=== PATIENT | male | born 1955 | race Caucasian/White ===

== ENCOUNTER → 2019-03-05 11:55 | Outpatient (CLI) | payer OTHER, MEDICAID, SELFPAY ==
[2019-03-05 12:57] LABS: Hematocrit 41.2 % (40-54); Hemoglobin 14.5 g/dL (13.0-16.5); Mean Corp Hgb Conc 35.2 g/dL (32-36); Mean Corpuscular Hgb 33.3 pg (27.0-32.0); Mean Corpuscular Volume 94.7 fL (80-94); Mean Platelet Vol. 8.5 fl (6.2-12.0); Platelet Count 425 K/mm3 (150-450); RBC Distribution Width CV 11.6 % (11.6-14.6); RBC Distribution Width SD 40.2 fl (35.1-43.9); Red Blood Count 4.35 M/mm3 (4.6-6.2); White Blood Count 10.8 K/mm3 (4.4-11.0)
[2019-03-05 13:38] LABS: ALB/GLOB Ratio 1.1 RATIO (0.9-2.4); AST(SGOT) 24 U/L (15-37); Alanine Aminotransfer ALT/SGPT 51 U/L (16-61); Albumin, Serum 3.8 g/dL (3.2-5.0); Alkaline Phosphatase 107 U/L (45-117); Anion Gap 8 (5-15); BUN 7 mg/dL (7-18); BUN/Creat Ratio 8.4 RATIO (10-20); Calcium,Total 9.2 mg/dL (8.5-10.1); Chloride 99 mmol/L (98-107); Cholesterol 190 mg/dL (200); Creatinine, Serum 0.83 mg/dL (0.70-1.30); EST Glomerular Filtration Rate 100 mL/min (>60); Est Glom Filt Rate - Afr Amer 121 mL/min (>60); Globulin 3.6 g/dL (2.2-4.2); Glucose 112 mg/dL (74-106); High Density Lipoprotein 43 mg/dL; PSA,Total - Annual Screen 0.76 ng/mL (0.00-4.00); Protein, Total 7.4 g/dL (6.4-8.2); Sodium Level 131 mmol/L (136-145); Triglycerides 210 mg/dL; Very Low Density Lipoprotein 42 mg/dL (5-40)
== END ==
PROVIDERS: Family Provider Nurse Practitioner Family; PCP Nurse Practitioner Family; Referring Provider Nurse Practitioner Family; Visit Provider Nurse Practitioner Family
DX: Z00.00 Encounter for general adult medical examination without abnormal findings (principal); I10 Essential (primary) hypertension; Z12.5 Encounter for screening for malignant neoplasm of prostate; Z13.220 Encounter for screening for lipoid disorders
CPT/HCPCS: 36415; 80053; 80061; 84153; 85027; G0103

== ENCOUNTER → 2019-03-27 09:39 | Outpatient (CLI) | payer OTHER, MEDICAID, SELFPAY ==
[2019-03-27 10:21] LABS: Hemoglobin A1c 6.4 % (4.2-6.3)
== END ==
PROVIDERS: Family Provider Nurse Practitioner Family; PCP Nurse Practitioner Family; Referring Provider Nurse Practitioner Family; Visit Provider Nurse Practitioner Family
DX: R73.01 Impaired fasting glucose (principal)
CPT/HCPCS: 36415; 83036

== ENCOUNTER → 2019-09-24 09:11 | Outpatient (CLI) | payer MEDICAID, SELFPAY ==
[2019-09-24 09:57] LABS: Hematocrit 40.7 % (40-54); Hemoglobin 14.4 g/dL (13.0-16.5); Mean Corp Hgb Conc 35.4 g/dL (32-36); Mean Corpuscular Hgb 32.8 pg (27.0-32.0); Mean Corpuscular Volume 92.7 fL (80-94); Mean Platelet Vol. 8.3 fl (6.2-12.0); Platelet Count 504 K/mm3 (150-450); RBC Distribution Width CV 11.8 % (11.6-14.6); RBC Distribution Width SD 40.3 fl (35.1-43.9); Red Blood Count 4.39 M/mm3 (4.6-6.2); White Blood Count 11.3 K/mm3 (4.4-11.0)
[2019-09-24 10:23] LABS: AST(SGOT) 23 U/L (15-37); Alanine Aminotransfer ALT/SGPT 43 U/L (16-61); Albumin, Serum 3.9 g/dL (3.2-5.0); Alkaline Phosphatase 75 U/L (45-117); Anion Gap 8 (5-15); BUN 8 mg/dL (7-18); BUN/Creat Ratio 8.6 RATIO (10-20); Calcium,Total 9.7 mg/dL (8.5-10.1); Chloride 95 mmol/L (98-107); Cholesterol 202 mg/dL (200); Creatinine, Serum 0.93 mg/dL (0.70-1.30); EST Glomerular Filtration Rate 87 mL/min (>60); Est Glom Filt Rate - Afr Amer 106 mL/min (>60); Globulin 3.9 g/dL (2.2-4.2); Glucose 179 mg/dL (74-106); High Density Lipoprotein 44 mg/dL; Potassium 3.9 mmol/L (3.5-5.1); Protein, Total 7.8 g/dL (6.4-8.2); Sodium Level 128 mmol/L (136-145); Triglycerides 116 mg/dL; Very Low Density Lipoprotein 23 mg/dL (5-40)
[2019-09-24 10:33] LABS: Hemoglobin A1c 5.8 % (3.8-5.6)
== END ==
PROVIDERS: PCP Nurse Practitioner Family; Referring Provider Nurse Practitioner Family; Visit Provider Nurse Practitioner Family
DX: R73.03 Prediabetes (principal); E78.5 Hyperlipidemia, unspecified; I10 Essential (primary) hypertension
CPT/HCPCS: 36415; 80053; 80061; 83036; 85027

== ENCOUNTER → 2020-03-31 08:00 | Outpatient (CLI) | payer MEDICAID, SELFPAY ==
[2020-03-31 09:01] LABS: Hematocrit 45.2 % (40-54); Hemoglobin 15.7 g/dL (13.0-16.5); Mean Corp Hgb Conc 34.7 g/dL (32-36); Mean Corpuscular Volume 92.2 fL (80-94); Mean Platelet Vol. 8.6 fl (6.2-12.0); Platelet Count 457 K/mm3 (150-450); RBC Distribution Width CV 12.2 % (11.6-14.6); RBC Distribution Width SD 41.3 fl (35.1-43.9); White Blood Count 11.3 K/mm3 (4.4-11.0)
[2020-03-31 09:35] LABS: ALB/GLOB Ratio 1.2 RATIO (0.9-2.4); AST(SGOT) 19 U/L (15-37); Alanine Aminotransfer ALT/SGPT 39 U/L (16-61); Albumin, Serum 4.1 g/dL (3.2-5.0); Alkaline Phosphatase 64 U/L (45-117); Anion Gap 8 (5-15); BUN 9 mg/dL (7-18); BUN/Creat Ratio 10.1 RATIO (10-20); Calcium,Total 9.6 mg/dL (8.5-10.1); Chloride 96 mmol/L (98-107); Cholesterol 237 mg/dL (200); Creatinine, Serum 0.89 mg/dL (0.70-1.30); EST Glomerular Filtration Rate 92 mL/min (>60); Est Glom Filt Rate - Afr Amer 111 mL/min (>60); Globulin 3.5 g/dL (2.2-4.2); Glucose 125 mg/dL (74-106); High Density Lipoprotein 37 mg/dL; PSA,Total - Annual Screen 1.18 ng/mL (0.00-4.00); Potassium 4.5 mmol/L (3.5-5.1); Protein, Total 7.6 g/dL (6.4-8.2); Sodium Level 130 mmol/L (136-145); Triglycerides 207 mg/dL; Very Low Density Lipoprotein 41 mg/dL (5-40)
[2020-03-31 10:23] LABS: Hemoglobin A1c 6.2 % (3.8-5.6)
== END ==
PROVIDERS: PCP Nurse Practitioner Family; Visit Provider Nurse Practitioner Family
DX: R73.03 Prediabetes (principal); E78.5 Hyperlipidemia, unspecified; I10 Essential (primary) hypertension; Z12.5 Encounter for screening for malignant neoplasm of prostate
CPT/HCPCS: 36415; 80053; 80061; 83036; 84153; 85027; G0103

== ENCOUNTER → 2022-04-19 | Outpatient (CLI) | payer MEDICARE, SELFPAY ==
[2022-04-19 10:16] LABS: Hematocrit 44.7 % (40-54); Hemoglobin 15.6 g/dL (13.0-16.5); Mean Corp Hgb Conc 34.9 g/dL (32-36); Mean Corpuscular Volume 91.8 fL (80-94); Mean Platelet Vol. 8.9 fl (6.2-12.0); Platelet Count 479 K/mm3 (150-450); RBC Distribution Width CV 12.5 % (11.6-14.6); Red Blood Count 4.87 M/mm3 (4.6-6.2); White Blood Count 11.7 K/mm3 (4.4-11.0)
[2022-04-19 10:44] LABS: Hemoglobin A1c 6.1 % (3.8-5.6)
[2022-04-19 10:53] LABS: ALB/GLOB Ratio 1.1 RATIO (0.9-2.4); AST(SGOT) 17 U/L (15-37); Alanine Aminotransfer ALT/SGPT 34 U/L (16-61); Alkaline Phosphatase 88 U/L (45-117); Anion Gap 7 (5-15); BUN 11 mg/dL (7-18); BUN/Creat Ratio 12.3 RATIO (10-20); Calcium,Total 9.5 mg/dL (8.5-10.1); Chloride 103 mmol/L (98-107); Cholesterol 171 mg/dL (200); EST Glomerular Filtration Rate 90 mL/min (>60); Est Glom Filt Rate - Afr Amer 109 mL/min (>60); Globulin 3.8 g/dL (2.2-4.2); Glucose 119 mg/dL (74-106); High Density Lipoprotein 44 mg/dL; Potassium 4.4 mmol/L (3.5-5.1); Protein, Total 7.8 g/dL (6.4-8.2); Sodium Level 132 mmol/L (136-145); Triglycerides 134 mg/dL; Very Low Density Lipoprotein 27 mg/dL (5-40)
== END | disposition home or self-care (01) ==
PROVIDERS: PCP Nurse Practitioner Family; Referring Provider Nurse Practitioner Family; Visit Provider Nurse Practitioner Family
DX: R73.03 Prediabetes (principal); I10 Essential (primary) hypertension; E78.5 Hyperlipidemia, unspecified
CPT/HCPCS: 36415; 80053; 80061; 83036; 85027

== ENCOUNTER 2023-10-17 18:34 | Inpatient (IN) | payer MEDICARE, MEDICAID, SELFPAY ==
[2023-10-17] VITALS (11 sets, daily range): BP systolic 97–169; BP diastolic 54–70; PULSE 60–87; RESP 13–24; TEMP 36.6–36.8; O2SAT 89–95; BMI 26.2; BMI 28.5; BMI 30.4
--- NOTE | 2023-10-17 18:37 | CT_ITS ---
We are attempting to reach an attending provider to discuss findings. An addendum with communication details will be sent when the communication is complete. INDICATION: Neuro deficit, acute, stroke suspected EXAMINATION: CT BRAIN - CT Head Stroke Protocol W/O Contrast Injection TECHNIQUE: Multiple axial images were obtained of the head without intravenous contrast. The protocol utilizes one or more of the following dose reduction techniques: automated exposure control, adjustment of mA and/or kV according to patient size,and/or use of iterative reconstruction technique. IV Contrast dosage and agent: None. RADIATION DOSAGE (If Supplied By Facility): CTDIvol = ( ) mGy, DLP = ( 863.6 ) mGycm COMPARISON: FINDINGS: BRAIN PARENCHYMA: Mild atrophy and periventricular white matter ischemic changes. There is an old infarct in the left occipital lobe and posterior medial left temporal lobe . No intracranial mass or mass effect. There is preservation of the nolasco/white matter interface. Probable old infarct in the right cerebellar hemisphere. CSF SPACES: Appropriate for age. No hydrocephalus. Basal cisterns are patent. CALVARIUM, SKULL BASE, PARANASAL SINUSES AND MASTOID AIR CELLS: Clear. No discrete lytic or blastic abnormalities. ORBITS: Both globes, extraocular muscles, optic nerves and retrobulbar fat appear unremarkable. Mild calcific plaquing of the cavernous carotids CT/STROKE Brain/Head without Cont IMPRESSION: Atrophy and periventricular white matter ischemic changes. 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 No acute bleed. If concern for acute infarct MRI recommended Electronically Signed: Jhon Lagos MD at 19:02 EDT ,
--- NOTE | 2023-10-17 18:37 | EKG12_ITS ---
Test Reason : STROKE ALERT Blood Pressure : / mmHG Vent. Rate : 068 BPM Atrial Rate : 068 BPM P-R Int : 200 ms QRS Dur : 084 ms QT Int : 382 ms P-R-T Axes : 052 -27 000 degrees QTc Int : 406 ms Normal sinus rhythm Inferior infarct , age undetermined Abnormal ECG Confirmed by GARY HALE, ELI ([id number]), medical editor MOISÉS LAUREN ([id number]) on 10/24/2023 10:33:22 A M Referred By: TI Confirmed By:AMA VEGA MD
--- NOTE | 2023-10-17 18:38 | CT_ITS ---
We are attempting to reach an attending provider to discuss findings. An addendum with communication details will be sent when the communication is complete. STUDY: CTA HEAD AND NECK WITH CONTRAST REASON FOR EXAM: Male, 67 years old. Neuro deficit, acute, stroke suspected RADIATION DOSAGE (If Supplied By Facility): CTDIvol = ( 18.38 ) mGy, DLP = ( 785.92 ) mGycm TECHNIQUE: CT angiography was performed with a multi-detector CT scanner. Data acquisition was obtained from the skull base through the vertex following intravenous administration of IV 100mL Isovue-370. MIP images were reconstructed from the axial data set. Post-processing of the angiographic images was performed, with multiplanar reformation and 3D reconstruction. Individualized dose optimization techniques were used for this CT. COMPARISON: No relevant priors. FINDINGS: Normal bilateral petrous carotid arteries. Mild calcific plaquing of the right cavernous carotid artery with a normal supraclinoid bifurcation. Mild calcific plaquing of the left cavernous carotid artery with a normal supraclinoid bifurcation. Normal right A1 segments of the anterior cerebral artery. Normal left A1 segments of the anterior cerebral artery. Normal intact anterior communicating artery (ACOM). Normal bilateral A2 segments of the anterior cerebral arteries. Normal right M1 and M2 segments of the middle cerebral arteries, with a normal M1 bifurcation. Normal left M1 and M2 segments of the middle cerebral arteries, with a normal M1 bifurcation. Hypoplastic bilateral posterior communicating arteries consistent with normal variant Normal bilateral vertebral arteries. Normal basilar artery with a normal basilar bifurcation. The visualized bilateral superior cerebellar (SCA) arteries are normal. Normal bilateral P1, P2 and visualized P3 segments of the posterior cerebral arteries. There is no demonstrated aneurysm of the solomon of [place]. AORTIC ARCH: Normal visualized aortic arch. Calcific plaquing of the origins of the brachiocephalic, left common carotid, and left subclavian arteries. RIGHT CAROTID ARTERIES: Mild multifocal calcific plaquing of the right common carotid artery (CCA). Moderate calcific plaquing of the right common carotid bulb. Mild soft and calcific plaquing of the origin of the right internal carotid (ICA) artery without a hemodynamically significant stenosis. Normal visualized cervical portion of the right internal carotid artery. Normal origin of the right external carotid artery (ECA). LEFT CAROTID ARTERIES: Normal left common carotid artery (CCA). Moderate calcific and soft plaquing of the left common carotid bulb. Moderate calcific and soft plaquing of the origin of the left internal carotid (ICA) artery without a hemodynamically significant stenosis. Normal visualized cervical portion of the left internal carotid artery. Normal origin of the left external carotid artery (ECA). VERTEBRAL ARTERIES: Normal bilateral vertebral arteries. CT/STROKE CTA Head AND Neck W/Con IMPRESSION: Moderate atherosclerotic disease of the cervical carotids without evidence for hemodynamically significant stenosis Mild atherosclerotic disease the brain without evidence for significant stenosis or major vessel occlusion Electronically Signed: Jhon Lagos MD at 19:11 EDT ,
[2023-10-17 18:58] LABS: Absolute Lymphocyte Count 3.77 X10^3/uL (0.83-4.51); Absolute Neutrophil Count 5.3 X10^3/uL (2.0-7.7); Basophil# 0.09 X10^3/uL; Basophil% 0.7 % (0-1); Eosinophil# 1.61 X10^3/uL; Eosinophils% 13.3 % (0-5); Hemoglobin 11.7 g/dL (13.0-16.5); Lymphocyte # 3.77 X10^3/ul (0.83-4.51); Lymphocyte % 31.1 % (19-41); Mean Corp Hgb Conc 36.6 g/dL (32-36); Mean Corpuscular Hgb 29.9 pg (27.0-32.0); Mean Corpuscular Volume 81.8 fL (80-94); Mean Platelet Vol. 8.3 fl (6.2-12.0); Monocyte# 1.33 X10^3/uL; NRBC Flagged by Analyzer 0 % (0-5); Neutrophil # 5.28 X10^3/uL (2.7-7.7); Neutrophil % 43.7 % (47-70); Platelet Count 351 K/mm3 (150-450); RBC Distribution Width CV 13.2 % (11.6-14.6); RBC Distribution Width SD 39.5 fl (35.1-43.9); Red Blood Count 3.91 M/mm3 (4.6-6.2); White Blood Count 12.1 K/mm3 (4.4-11.0)
[2023-10-17 19:09] LABS: International Normalized Ratio 1.1
[2023-10-17 19:11] LABS: Partial Thromboplast Time 36.4 Seconds (24.1-36.2)
[2023-10-17 19:15] LABS: Anion Gap 4 (5-15); BUN 10 mg/dL (7-18); BUN/Creat Ratio 8.1 RATIO (10-20); Calcium,Total 8.8 mg/dL (8.5-10.1); Chloride 90 mmol/L (98-107); Creatinine, Serum 1.24 mg/dL (0.70-1.30); EST Glomerular Filtration Rate 62 mL/min (>60); Est Glom Filt Rate - Afr Amer 75 mL/min (>60); Estimated Creatinine Clearance 64.17 ml/min; Glucose 167 mg/dL (74-106); Potassium 3.6 mmol/L (3.5-5.1); Sodium Level 124 mmol/L (136-145); Troponin-I HS 14 pg/mL (3.0-78.0)
--- NOTE | 2023-10-17 19:20 | RAD_ITS ---
STUDY: X-RAY CHEST REASON FOR EXAM: Male, 67 years old. Neuro deficit, acute, stroke suspected TECHNIQUE: AP portable COMPARISON: None. FINDINGS: The lungs are clear and expanded. There is no demonstrated pleural abnormality. Normal size heart. Normal mediastinum and sina. Normal visualized pulmonary arteries. Atherosclerotic changes of the aorta without evidence for aneurysm Dorsal spine demonstrates degenerative changes. Normal visualized ribs, clavicles, and shoulders. There is no demonstrated abnormality of the visualized soft tissue structures of the upper abdomen. RAD/Chest 1 View IMPRESSION: No acute cardiopulmonary pathology Electronically Signed: Jhon Lagos MD at 19:41 EDT ,
--- NOTE | 2023-10-17 19:29 | EDS_ITS ---
HPI History of Present Illness Chief Complaint: Stroke Alert Informant: patient, family and EMS Narrative Narrative: 67-year-old male presenting to the emergency room with chief complaint of prehospital stroke. Patient states that he was eating some jalapeno poppers and noticed that he was having difficulty speaking and moving his right greater than left arm and choking. Daughter states that he had been that way for about 30 minutes when she arrived and noticed that he was having difficulty expressing himself as well as slurred speech and facial droop. EMS notes systolic blood pressure of around 240. Patient states that his arms and legs are normal at this time that he is feeling better. He notes a history of diabetes. Daughter states that he quit drinking alcohol about a year ago. He is unsure if he does or does not take any blood thinners. He denies any prior history of stroke. PFSH PFS Medical History Diabetes mellitus, type 2 History of alcohol abuse Cannabis use disorder HLD (hyperlipidemia) Hypertension Tobacco use History of CVA (cerebrovascular accident) Allergy/AdvReac Type Severity Reaction Status Date / Time No Known Allergies Allergy Verified 10/17/23 19:37 Family History Mother Breast cancer Diabetes Father Heart disease Hypertension CAD (coronary artery disease) CVA (cerebral vascular accident) Myocardial infarction Surgical History History of tonsillectomy and adenoidectomy Social History (Updated 10/17/23 @ 22:04 by Francheska Sun) household members: none housing: apartment number of children: 3 service: No current occupational status: retired Smoking Status: Current every day smoker tobacco type: cigarettes Smoking packs per day: 1 Smoking cigarettes per day: 20.0 quit status: not considering quitting alcohol intake: former year quit: 2022 details: Quit 08/2022, prior 12-15 beers daily. substance use type: marijuana ROS ROS ED Constitutional Constitutional ED: Denies chills, fever(s) or weight loss Eyes Eyes: Denies change in vision or diplopia ENT ENT ED: Denies ear pain, rhinorrhea or sore throat Cardiovascular Cardiovascular: Denies chest pain, orthopnea, palpitations or racing heartbeat Respiratory/Chest Respiratory/Chest: Denies cough, dyspnea or orthopnea Gastrointestinal Gastrointestinal: Denies abdominal pain, diarrhea, nausea or vomiting Genitourinary Genitourinary ED: Denies dysuria, hematuria or urinary frequency Musculoskeletal Musculoskeletal: Denies arthralgias or myalgias Integumentary Denies abscess or rash Neurologic Neurologic: Reports other Details: Right arm weakness right facial droop slurred speech aphasia ; Denies headache(s) Psychiatric Psychiatric: Denies anxiety, depression, suicidal ideation or suicidal thoughts Endocrine Endocrinology: Denies polydipsia, polyphagia or polyuria Allergic/Immunologic Allergic/Immunologic ED: Denies mouth swelling, tongue swelling or urticaria EXAM Physical Exam Const Vital Signs: 10/17/23 18:35 10/17/23 18:37 10/17/23 18:37 Temperature 98.3 F 98.3 F Temperature Source Oral Oral Pulse Rate 84 80 Respiratory Rate 18 24 H Blood Pressure 167/64 H 167/64 H Blood Pressure Mean 98 98 Pulse Ox 93 91 Oxygen Delivery Method Room Air Room Air Room Air Oxygen Flow Rate (L/min) 10/17/23 19:01 10/17/23 19:26 10/17/23 19:32 Temperature 98.3 F 98.3 F Temperature Source Oral Oral Pulse Rate 73 84 Respiratory Rate 23 H 18 Blood Pressure 169/70 H 167/64 H Blood Pressure Mean 103 98 Pulse Ox 92 93 89 Oxygen Delivery Method Room Air Room Air Room Air Oxygen Flow Rate (L/min) 10/17/23 19:35 Temperature Temperature Source Pulse Rate 70 Respiratory Rate 21 H Blood Pressure 146/64 H Blood Pressure Mean 91 Pulse Ox 94 Oxygen Delivery Method Nasal Cannula Oxygen Flow Rate (L/min) 3 Positive well nourished and well developed General Appearance ED: well developed and NAD HEENT Reports normocephalic, head/scalp atraumatic and moist mucous membranes Eyes PERRL and EOMs intact bilaterally Neck no lymphadenopathy, supple and no JVD Resp normal respiratory effort and clear to auscultation bilaterally Cardio regular rate, regular rhythm and no murmurs GI normal to inspection, nondistended, normoactive bowel sounds and non-tender Palpation: soft Back/Spine no CVA tenderness and normal ROM Extremity normal to inspection General Extremety ED: Negative for edema General Extremity: Negative for edema Neuro oriented x3 and CN's II-XII intact bilaterally Sensorium / Orientation: alert Motor Exam: strength 5/5 throughout Psych mental status grossly normal Mood & Affect: Negative for depressed or tearful Skin no rashes or lesions noted and no wounds NIHSS NIHSS Initial: 1a Level of Consciousness: 0 1b LOC Questions (Score 2 if aphasic/stupor): 0 1c LOC Commands (Only score 1st attempt): 0 2 Best Gaze (If aphasic, use reflexive mvmts.): 0 3 Visual: 0 4 Facial Palsy: 1 5 Motor Arm Right (UN = amputation/fusion): 0 6 Motor Leg Right: 0 6 Motor Leg Left: 0 7 Limb ataxia (Only + if out of proportion): 0 8 Sensory (Aphasia/stupor=0 or 1, coma=2): 0 9 Best Language: 0 10 Dysarthria (mute, coma=2, intubated=UN): 1 11 Extinction and Inattention (only scored if +): 0 Total Score: 2 MDM MDM MDM Narrative Medical decision making narrative: Differential diagnosis includes but not limited to TIA embolic stroke hemorrhagic stroke toxidrome electrolyte disturbance hypertensive urgency/emergency Prehospital stroke team was called. He was taken from the ambulance entrance where he is examined initially by myself and then directly to the CT scanner where a CT of the brain and CTA of head and neck was obtained. [facility] stroke neurologist was being into the room for telemetry evaluation. I do not see intracranial hemorrhage. There is no LVO. [facility] recommendation is for high-dose loading of Plavix and aspirin. Basic blood work showed a nonspecific elevation of white count 12.1 hemoglobin 11.7. Sodium 124 troponin is normal my i ndependent interpretation of the chest x-ray is no acute process. I spoke with the patient and their family. Advised her recommendation is for admission. We talked about the importance of TIA and its evaluation. His blood pressure is substantially improved currently 146/64. I will speak with the hospitalist regarding admission. Nursing notes his NIH has been 0 for the past several checks. History & Record Review Discussion w/independent historian: EMS personnel, Patient and Family Lab Data Attestation: I reviewed the patient's lab results. Labs: Laboratory Results - last 24 hr 10/17/23 18:43 WBC 12.1 H RBC 3.91 L Hgb 11.7 L Hct 32.0 L MCV 81.8 MCH 29.9 MCHC 36.6 H RDW Std Deviation 39.5 RDW Coeff of Katherine 13.2 Plt Count 351 MPV 8.3 Immature Gran % (Auto) 0.200 Neut % (Auto) 43.7 L Lymph % (Auto) 31.1 [place] % (Auto) 11.0 H Eos % (Auto) 13.3 H Baso % (Auto) 0.7 Absolute Neuts (auto) 5.3 Absolute Lymphs (auto) 3.77 Nucleated RBC % 0 PT 14.0 INR 1.1 APTT 36.4 H Sodium 124 L Potassium 3.6 Chloride 90 L Carbon Dioxide 30.0 Anion Gap 4 L BUN 10 Creatinine 1.24 Estim Creat Clear Calc 64.17 Est GFR (MDRD) Af Amer 75 Est GFR (MDRD) Non-Af 62 BUN/Creatinine Ratio 8.1 L Glucose 167 H Calcium 8.8 Magnesium 1.4 L Total Bilirubin 0.60 Direct Bilirubin 0.15 AST 23 ALT 21 Alkaline Phosphatase 86 Troponin I High Sens 14 Total Protein 6.5 Albumin 3.6 Globulin 2.9 Radiography Diagnostic Testing: Clinical Impression(s) from Imaging Studies Brain CT 10/17/23 18:37 IMPRESSION: Atrophy and periventricular white matter ischemic changes. 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 No acute bleed. If concern for acute infarct MRI recommended Electronically Signed: Jhon Lagos MD at 19:02 EDT , ADDENDUM: 10/17/23 1921 IMPRESSION: Atrophy and periventricular white matter ischemic changes. 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 No acute bleed. If concern for acute infarct MRI recommended N.B. : The above Results were Read Back by Jhon Lagos MD to Tony Sainz DO, and understanding confirmed on 10/17/2023 19:14:55 (ET). Electronically Signed: Jhon Lagos MD at 19:02 EDT , Head/Neck CTA 10/17/23 18:38 IMPRESSION: Moderate atherosclerotic disease of the cervical carotids without evidence for hemodynamically significant stenosis Mild atherosclerotic disease the brain without evidence for significant stenosis or major vessel occlusion Electronically Signed: Jhon Lagos MD at 19:11 EDT , ADDENDUM: 10/17/23 1921 IMPRESSION: Moderate atherosclerotic disease of the cervical carotids without evidence for hemodynamically significant stenosis Mild atherosclerotic disease the brain without evidence for significant stenosis or major vessel occlusion N.B. : The above Results were Read Back by Jhon Lagos MD to Tony Sainz DO, and understanding confirmed on 10/17/2023 19:14:50 (ET). Electronically Signed: Jhon Lagos MD at 19:11 EDT , Chest X-Ray 10/17/23 19:20 IMPRESSION: No acute cardiopulmonary pathology Electronically Signed: Jhon Lagos MD at 19:41 EDT , EKG Initial EKG: Attestation: I personally reviewed and interpreted this EKG as follows: Comments: Normal sinus rhythm ventricular of 68 bpm Management Discussion w/another healthcare provider: Hospitalist, Commonwealth Attorney ([facility] Stroke N eurology) and Radiologist Discharge Plan Dx/Rx/DC Orders Clinical Impression: Brain TIA, Hypertension, Tobacco use, Diabetes Disposition Disposition: Acute Care Hospital [facility] Discharge Date/Time: 10/17/23 21:34
--- NOTE | 2023-10-17 19:34 | ED.RN ---
per thais Schroeder to do hourly NIHSS
[2023-10-17] MEDS: Clopidogrel Bisulfate 300 MG Tablet 600 MG PO (19:42)
[2023-10-17] MEDS: Aspirin 81 MG TAB.CHEW PO (19:42)
--- NOTE | 2023-10-17 19:54 | HP.PCM.HOS_ITS ---
HPI - General General Date of Admission: 10/17/23 Date of Service: 10/17/23 Chief Complaint: Altered speech, expressive aphasia, dysphagia, upper extremity weakness, recent increased wheezing/dyspnea. HPI Narrative The patient is a 67 y/o M w/ PMHx: Tobacco use, HTN, Diabetes mellitus type II, Chronic Hyponatremia, Former EtOH abuse who presents to the [facility] ED on 10/17/23 with history of eating dinner specifically jalapeno poppers when he and his family noticed that he was having difficulty speaking as well as moving his right more so than left upper extremity following which she started to choke and unfortunately he had been like that for approximately 30 minutes with eventual prompted EMS call and upon their arrival they also noticed he was having difficulty with expressing himself with slurred speech and reported facial droop with an initial blood pressure per EMS and with a systolic in the 240s with upon arrival patient notes that his arms and legs feel appropriate and back to his baseline prompting eventual ED evaluation. Family present and patient agree that he is completely back to his baseline. In the emergency room he eventually does seem to require oxygen supplementation and reports that he has had chronic unchanged cough and no marked sputum production but he has been significantly wheezing over the last 2 to 3 days and reports that he has been out in the heat fishing for lengthy amount of time with dyspnea sensation worse with activity but has not sought care for this. He does apparently in the past have aerosol treatments but has not been using these at home and is unclear if these have actually been refilled recently as there is no mention of them and previous medication record. Patient of note does report that his stools are normal in color and has had no black appearing stools or emesis. Workup in the ED included T98.3, heart rate 84, BP 167/64, respiratory rate 18, 93% on room air eventually desaturating in the ED with most recent vital signs T98.3, heart rate 70, BP 146/64, respiratory rate 21, 94% on 3 L nasal cannula, CBC with WBC 12.1, hemoglobin 0.7, MCV 81.8, platelet 351 with no marked shift, coags not marked appearing as hide PTT 36.4, BMP with sodium 124, chloride 90, glucose 167, troponin 14, CT of the brain with atrophy and periventricular white matter ischemic changes, old left posterior medial temporal neck septal lobe and right cerebellar infarct with no acute bleed identified, CTA head and neck with moderate atherosclerotic disease of the cervical carotids without any evidence for hemodynamically significant stenosis, mild atherosclerotic disease of the brain without any evidence for significant stenosis or major vessel occlusion, chest x-ray with no acute cardiopulmonary finding, EKG with sinus rhythm with no acute evidence of ischemia. Stroke alert was initiated on patient. Per recommendation of neurology in the ED patient was administered loading dose of Plavix 6 mg p.o. x 1 as well as aspirin 81 mg p.o. x 1. [facility] Medical History Diabetes mellitus, type 2 History of alcohol abuse Cannabis use disorder HLD (hyperlipidemia) Hypertension Tobacco use History of CVA (cerebrovascular accident) Allergy/AdvReac Type Severity Reaction Status Date / Time No Known Allergies Allergy Verified 10/17/23 19:37 Family History Mother Breast cancer Diabetes Father Heart disease Hypertension CAD (coronary artery disease) CVA (cerebral vascular accident) Myocardial infarction Surgical History History of tonsillectomy and adenoidectomy Social History household members: none Smoking Status: Current every day smoker tobacco type: cigarettes Smoking packs per day: 1 Smoking cigarettes per day: 20.0 quit status: not considering quitting alcohol intake: former year quit: 2022 details: Quit 08/2022, prior 12-15 beers daily. substance use type: marijuana ROS ROS Narrative Admission Review of Systems: CONSTITUTIONAL: No weight loss, fever, chills, + weakness or fatigue. HEENT: Eyes: No visual loss, blurred vision, double vision or yellow sclerae. Ears, Nose, Throat: No hearing loss, sneezing, congestion, runny nose or sore throat. SKIN: No rash or itching, lesions, wounds. CARDIOVASCULAR: No chest pain, chest pressure or chest discomfort, palpitations, edema, orthopnea, syncopal events. RESPIRATORY: + Recent increased dyspnea, increased wheezing, chronic cough unchanged, no marked sputum production or any hemoptysis. GASTROINTESTINAL: No anorexia, nausea, vomiting or diarrhea, abdominal pain, melena, BRBPR. GENITOURINARY: No dysuria, frequency, urgency or retention. NEUROLOGICAL: + Transient bilateral upper extremity weakness, questionable facial droop, expressive aphasia now resolved. Chronic neuropathy. No headache, dizziness, syncope, paralysis, ataxia, change in bowel or bladder control, seizure. MUSCULOSKELETAL: + muscle, back pain, joint pain or stiffness. HEMATOLOGIC: + Anemia, appears new chronicity, no easy bleeding/bruising reported per patient. LYMPHATICS: No enlarged nodes. No history of splenectomy. PSYCHIATRIC: No history of depression or anxiety. ENDOCRINOLOGIC: No reports of sweating, cold or heat intolerance. No polyuria or polydipsia. ALLERGIES: No history of asthma, hives, eczema or rhinitis. Vital Signs Vital Signs Vital Signs: 10/17/23 18:35 10/17/23 18:37 10/17/23 18:37 Temperature 98.3 F 98.3 F Temperature Source Oral Oral Pulse Rate 84 80 Respiratory Rate 18 24 H Blood Pressure 167/64 H 167/64 H Blood Pressure Mean 98 98 Pulse Ox 93 91 Oxygen Delivery Method Room Air Room Air Room Air Oxygen Flow Rate (L/min) 10/17/23 19:01 10/17/23 19:26 10/17/23 19:35 Temperature 98.3 F 98.3 F Temperature Source Oral Oral Pulse Rate 73 84 70 Respiratory Rate 23 H 18 21 H Blood Pressure 169/70 H 167/64 H 146/64 H Blood Pressure Mean 103 98 91 Pulse Ox 92 93 94 Oxygen Delivery Method Room Air Room Air Nasal Cannula Oxygen Flow Rate (L/min) 3 Weight Weight: 192 lb 14.472 oz Body Mass Index (BMI) 26.2 Physical Exam Narrative Physical Examination: General: Awake, alert, oriented x 3 and cooperative, seated upright in the ED bed, family patient note that he is back to his baseline. Skin: Normal color, normal turgor, no icterus, no cyanosis except occasional abrasion, staged ecchymoses. HEENT: AT/NC, EOMI, PERRLA, mildly dry MM, no carotid bruits or JVD noted. Lungs: Significantly diminished, greater bases, diffuse and expiratory wheezing with intermittent coughing which he notes is baseline for him during evaluation, no rales or rhonchi. Heart: Currently regular rate and rhythm; no gallop, rub audible. Abdomen: Soft, NTTP, ND, mildly hyperactive BS, no appreciated HSM. Extremities: No cyanosis, no clubbing, no marked peripheral edema present. Neurological: Patient awake, alert, oriented as noted, cognitive function intact; pupils equally reactive to light and accommodation, cranial nerves grossly normal, moving all 4 extremities, no focal deficits, strength preserved, sensation intact, no evidence of any recurrent expressive aphasia, engineering research manager strength bilateral normal/equal, equivocal Babinski, finger-nose and saiw-rm-affl appropriate. Psychiatric: Affect appears interactive, normal, no acute evidence of depressive or anxiety feelings. Results Lab / Micro Data 10/17/23 18:43 10/17/23 18:43 Labs: Laboratory Results - last 24 hr 10/17/23 18:43: WBC 12.1 H, RBC 3.91 L, Hgb 11.7 L, Hct 32.0 L, MCV 81.8, MCH 29.9, MCHC 36.6 H, RDW Std Deviation 39.5, RDW Coeff of Katherine 13.2, Plt Count 351, MPV 8.3, Immature Gran % (Auto) 0.200, Neut % (Auto) 43.7 L, Lymph % (Auto) 31.1, Miner % (Auto) 11.0 H, Eos % (Auto) 13.3 H, Baso % (Auto) 0.7, Absolute Neuts (auto) 5.3, Absolute Lymphs (auto) 3.77, Nucleated RBC % 0, PT 14.0, INR 1.1, APTT 36.4 H, Sodium 124 L, Potassium 3.6, Chloride 90 L, Carbon Dioxide 30.0, Anion Gap 4 L, BUN 10, Creatinine 1.24, Estim Creat Clear Calc 64.17, Est GFR (MDRD) Af Amer 75, Est GFR (MDRD) Non-Af 62, BUN/Creatinine Ratio 8.1 L, G lucose 167 H, Calcium 8.8, Troponin I High Sens 14 Imaging Radiology Impression Brain CT 10/17/23 18:37 IMPRESSION: Atrophy and periventricular white matter ischemic changes. 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 No acute bleed. If concern for acute infarct MRI recommended Electronically Signed: Jhon Lagos MD at 19:02 EDT , ADDENDUM: 10/17/231920 IMPRESSION: Atrophy and periventricular white matter ischemic changes. 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 No acute bleed. If concern for acute infarct MRI recommended N.B. : The above Results were Read Back by Jhon Lagos MD to Tony Sainz DO, and understanding confirmed on 10/17/2023 19:14:55 (ET). Electronically Signed: Jhon Lagos MD at 19:02 EDT , Head/Neck CTA 10/17/23 18:38 IMPRESSION: Moderate atherosclerotic disease of the cervical carotids without evidence for hemodynamically significant stenosis Mild atherosclerotic disease the brain without evidence for significant stenosis or major vessel occlusion Electronically Signed: Jhon Lagos MD at 19:11 EDT , ADDENDUM: 10/17/231920 IMPRESSION: Moderate atherosclerotic disease of the cervical carotids without evidence for hemodynamically significant stenosis Mild atherosclerotic disease the brain without evidence for significant stenosis or major vessel occlusion N.B. : The above Results were Read Back by Jhon Lagos MD to Tony Sainz DO, and understanding confirmed on 10/17/2023 19:14:50 (ET). Electronically Signed: Jhon Lagos MD at 19:11 EDT , Chest X-Ray 10/17/23 19:20 IMPRESSION: No acute cardiopulmonary pathology Electronically Signed: Jhon Lagos MD at 19:41 EDT , Assessment & Plan Assessment/Plan (1) Brain TIA: (2) COPD exacerbation: (3) Hypoxia: PLAN: Plan The patient is a 67 y/o M w/ PMHx: Tobacco use, HTN, Diabetes mellitus type II, Chronic Hyponatremia, Former EtOH abuse who presents to the [facility] ED on 10/17/23 with history of eating dinner specifically papa poppers when he and his family noticed that he was having difficulty speaking as well as moving his right more so than left upper extremity following which she started to choke and unfortunately he had been like that for approximately 30 minutes with eventual prompted EMS call and upon their arrival they also noticed he was having difficulty with expressing himself with slurred speech and reported facial droop with an initial blood pressure per EMS and with a systolic in the 240s with upon arrival patient notes that his arms and legs feel appropriate and back to his baseline prompting eventual ED evaluation. #1. Transient expressive aphasia, dysphagia, upper extremity weakness, transient possible facial droop concerning for acute TIA high risk with previous CT evidence of CVA: Will admit to PCU, will obtain MRI Brain, ECHO, PT/OT/Speech/Nutrition evaluation per protocol. Will allow permissive HTN, maintain on asa/plavix with loading doses administered in the ED of note, continue statin w/ AM FLP, fall precautions. Mag, TSH, FLP, HgbA1c requested. Maintain on fall and aspiration precautions. Continue neurology consultation. #2. Acute Hypoxic secondary to Acute on Chronic COPD exacerbation: CXR w/ chronic changes, maintain on oxygen with wean as tolerated to room air, continue ATC duonebs, PRN albuterol, IV methylprednisolone, HOB, IS parameters, will obtain sputum Cx, respiratory viral panel, procalcitonin, will hold on immediately abx therapy but low threshold to add if appropriate. #3. Acute on chronic hyponatremia with history of previous alcohol abuse: Admission sodium 124, previous baseline primarily 128-132 however the most recent lab is noted 04/19/22 sodium 132, continue judiciously hydrate, repeat CMP in the a.m. and if continues to remain low we will further evaluate. #4. Hypertension: Given presentation we will maintain on permissive hypertension, noted previously to have been on amlodipine, clonidine, losartan/hydrochlorothiazide. #5. Hyperlipidemia: Change to high dose statin, FLP in AM as noted. #6. Normocytic anemia, appears new in chronicity: Admission hemoglobin 11.7, MCV 81.8, most recent prior to this however 04/19/22 hemoglobin 15 with baseline previous to this 14-15, will obtain guaiac, iron panel, ferritin, vitamin B12 and folic acid levels and trend CBC. #7. History of previous chronic alcohol abuse: Noted to have quit and had been sober for approximately 1 year, encourage continued sobriety, case management consulted. Alcohol level requested. Maintain on MVI, folic acid, thiamine. #8. Tobacco Abuse: Encouraged cessation, inpatient consultation per RT, NR if desired. #9. Diabetes mellitus type II with chronic neuropathy: Hold oral home regimen, continue home pregabalin regimen, maintain on ADA diet, accu checks w/ ISS., Nutrition consulted per stroke protocol, hemoglobin A1c requested. #10. DVT prophylaxis: Lovenox. #11. CODE status: Patient HCPOA and LW are not in place but he notes his daughters would be his decision makers if necessary. Discussed CODE status at length including difference between FULL code, DNR-CCA and DNR-CC status. Following discussions about the differences in these status, requested DNR-CCA with allowance of intubation if necessary. Advanced Care Planning Face to Face Time: 16 minutes. Charges/Coding Visit Charges Inpatient E&M: 19671 Init Hosp L3 Procedures Hospitalists Procedures: 87341 Advncd Care Plan 30 Min
[2023-10-17 20:27] LABS: AST(SGOT) 23 U/L (15-37); Alanine Aminotransfer ALT/SGPT 21 U/L (16-61); Albumin, Serum 3.6 g/dL (3.2-5.0); Alkaline Phosphatase 86 U/L (45-117); Bilirubin, Direct 0.15 mg/dL (0.00-0.30); Globulin 2.9 g/dL (2.2-4.2); Magnesium 1.4 mg/dL (1.6-2.6); Protein, Total 6.5 g/dL (6.4-8.2)
--- NOTE | 2023-10-17 21:31 | ED.RN ---
per Dr. Sainz, okay to discontinue NIHSS
[2023-10-17 21:43] LABS: Alcohol, Blood (Medical)-Serum < 3.0 mg/dL
--- NOTE | 2023-10-17 21:48 | ECHOCS_ITS ---
Reason For Study: TIA/CVA Procedure This was a 2D Doppler, Color Flow transthoracic echocardiogram. The study was technically difficult. Exam performed portable in patient room. Left Ventricle Normal LV size. Mild concentric left ventricular hypertrophy. The left ventricular ejection fraction is 75 %. Normal diastology for age. Right Ventricle Normal right ventricle. Atria The left and right atria are normal. Bubble contrast study is negative for PFO/ASD. Mitral Valve Trivial mitral valve insufficiency. Tricuspid Valve Trivial tricuspid valve insufficiency. Right ventricular systolic pressure estimated to be 39 mmHg. Aortic Valve Mild diffuse aortic valve thickening. Mild aortic stenosis. Pulmonic Valve The pulmonic valve is not well visualized. Great Vessels Normal sized aortic root. Pericardium/Pleural No pericardial effusion. Medication Performed a rapid injection of agitated mix of 9 cc saline and 1cc air to assess for atrial septal defect. Diluted definity 1ml given slow IV push to enhance endocardial definition. MMode/2D Measurements & Calculations LVIDd: 4.5 cm IVSd: 1.1 cm LVOT diam: 2.1 cm LVIDs: 2.6 cm LVPWd: 1.2 cm RVDd: 3.9 cm FS: 41.3 % LVOT area: 3.5 cm2 Ao root diam: 3.3 cm LAV(MOD-bp): 43.9 ml LVAd ap4: 31.8 cm2 LAV(MOD-bp) Indexed: 21.5 ml/m2 LVLd ap4: 8.5 cm LAV(MOD-sp2): 42.9 ml EDV(MOD-sp4): 97.8 ml LAV(MOD-sp4): 41.3 ml EDV(sp4-el): 101.2 ml LVAs ap4: 14.3 cm2 LVLs ap4: 6.8 cm ESV(MOD-sp4): 25.8 ml ESV(sp4-el): 25.7 ml EF(MOD-sp4): 73.6 % EF(sp4-el): 74.6 % SV(MOD-sp4): 72.0 ml SV(sp4-el): 75.5 ml LA A4 area: 15.7 cm2 LA dimension(2D): 3.2 cm RA A4 area: 14.7 cm2 TAPSE: 2.7 cm Time Measurements MV dec time: 0.21 sec Doppler Measurements & Calculations MV E max al: 75.9 cm/sec Lat Peak E' Al: 11.0 cm/sec Med Peak E' Al: 10.7 cm/sec MV A max al: 107.3 cm/sec E/E' lat: 6.9 E/E' med: 7.1 MV E/A: 0.71 Ao V2 max: 251.0 cm/sec LV V1 max: 134.0 cm/sec SV(LVOT): 101.8 ml Ao max P.4 mmHg LV V1 max P.2 mmHg Ao V2 mean: 195.8 cm/sec LV V1 mean P.0 mmHg Ao mean P.9 mmHg LV V1 mean: 93.8 cm/sec Ao V2 VTI: 57.6 cm LV V1 VTI: 28.8 cm AV (velocity ratio): 0.50 QUINTEN(I,D): 1.8 cm2 QUINTEN(V,D): 1.9 cm2 PA V2 max: 123.8 cm/sec TR max al: 293.7 cm/sec PA max PG (full): 3.5 mmHg TR max P.5 mmHg ECHO/Echo Complete W/ Contrast Interpretation Summary Mild concentric left ventricular hypertrophy. The left ventricular ejection fraction is 75 %. Bubble contrast study is negative for PFO/ASD. Right ventricular systolic pressure estimated to be 39 mmHg. Mild diffuse aortic valve thickening and calcification. Mild aortic stenosis. Ordering Physician: Altagracia Wilson Referring Physician: DAVID ARITA Performed By: Poly Jean-Baptiste RDCS
[2023-10-17 22:04] LABS: Procalcitonin < 0.04 ng/mL (0.00-0.09)
[2023-10-17] MEDS: 0.9% Normal Saline (1000mL) 1,000 ML 100 ML IV (22:21)
[2023-10-17] MEDS: Atorvastatin Calcium 80 MG Tablet PO (22:33)
[2023-10-17 23:06] LABS: Bedside Glucose 125 mg/dL (74-106)
[2023-10-18] VITALS (9 sets, daily range): BP systolic 108–175; BP diastolic 61–98; PULSE 74–98; RESP 18; TEMP 36.6–36.7; O2SAT 94–97; BMI 30.4
[2023-10-18 00:57] LABS: Phosphorus 2.8 mg/dL (2.5-4.9)
[2023-10-18] MEDS: Magnesium Sulfate 4gm/100mL 4 GM/100 ML IV.SOLN. IV (01:07)
[2023-10-18 06:29] LABS: Absolute Lymphocyte Count 0.77 X10^3/uL (0.83-4.51); Absolute Neutrophil Count 13.8 X10^3/uL (2.0-7.7); Basophil# 0.03 X10^3/uL; Basophil% 0.2 % (0-1); Hematocrit 39.2 % (40-54); Lymphocyte # 0.77 X10^3/ul (0.83-4.51); Lymphocyte % 5.2 % (19-41); Mean Corp Hgb Conc 35.7 g/dL (32-36); Mean Corpuscular Hgb 29.8 pg (27.0-32.0); Mean Corpuscular Volume 83.4 fL (80-94); Mean Platelet Vol. 8.4 fl (6.2-12.0); Monocyte# 0.12 X10^3/uL; Monocyte% 0.8 % (0-10); NRBC Flagged by Analyzer 0 % (0-5); Neutrophil # 13.75 X10^3/uL (2.7-7.7); Neutrophil % 93.2 % (47-70); Platelet Count 435 K/mm3 (150-450); RBC Distribution Width SD 39.3 fl (35.1-43.9); White Blood Count 14.8 K/mm3 (4.4-11.0)
[2023-10-18] MEDS: Ipratropium/Albuterol Sulfate 3 ML AMPUL.NEB INHALATION ×2 (06:56→14:30)
[2023-10-18 06:59] LABS: Bedside Glucose 201 mg/dL (74-106)
[2023-10-18 07:09] LABS: ALB/GLOB Ratio 1.1 RATIO (0.9-2.4); AST(SGOT) 28 U/L (15-37); Alanine Aminotransfer ALT/SGPT 23 U/L (16-61); Albumin, Serum 4.1 g/dL (3.2-5.0); Alkaline Phosphatase 115 U/L (45-117); Anion Gap 9 (5-15); BUN 12 mg/dL (7-18); BUN/Creat Ratio 12.3 RATIO (10-20); Calcium,Total 9.7 mg/dL (8.5-10.1); Chloride 98 mmol/L (98-107); Cholesterol 166 mg/dL (200); Creatinine, Serum 0.97 mg/dL (0.70-1.30); EST Glomerular Filtration Rate 82 mL/min (>60); Est Glom Filt Rate - Afr Amer 99 mL/min (>60); Ferritin 218 ng/mL (26-388); Globulin 3.6 g/dL (2.2-4.2); Glucose 205 mg/dL (74-106); High Density Lipoprotein 37 mg/dL; Iron 39 ug/dL (65-175); Iron Binding Capacity,Total 314 ug/dL (250-450); Magnesium 2.4 mg/dL (1.6-2.6); PERCENT IRON SATURATION 12.4 % (15.0-55.0); Potassium 3.8 mmol/L (3.5-5.1); Protein, Total 7.7 g/dL (6.4-8.2); Sodium Level 129 mmol/L (136-145); Thyroid Stim Hormone (TSH) 0.93 uIU/mL (0.358-3.74); Triglycerides 64 mg/dL; Very Low Density Lipoprotein 13 mg/dL (5-40)
[2023-10-18 08:56] LABS: Vitamin B12 222 pg/mL (211-911)
--- NOTE | 2023-10-18 09:00 | MRI_ITS ---
We are attempting to reach an attending provider to discuss findings. An addendum with communication details will be sent when the communication is complete. STUDY: MRI BRAIN WITHOUT CONTRAST REASON FOR EXAM: Male, 67 years old. TIA, slurred speech, aphasia, dyphasia, upper extremity weakness TECHNIQUE: Standardized multiplanar fat and water weighted pulse sequences were obtained. COMPARISON: CT 10/17/2023 FINDINGS: There is moderate cerebral atrophy with widening of the extra-axial spaces and ventricular dilatation. There are multiple white matter hyperintensities, distributed throughout the deep white matter tracts of the cerebral hemispheres, consistent with moderate chronic white matter ischemic changes. Focal encephalomalacia and gliosis left occipital lobe consistent with a prior infarct. Focal hyperintensities of the cortex of the left parietal lobe demonstrate restricted diffusion consistent with acute/subacute infarcts possibly embolic. Normal T2* images of the brain without demonstrated susceptibility artifact. There is no demonstrated hemosiderin stain. Normal bilateral basal ganglia. Normal thalami. There is no extra-axial fluid accumulation. Normal flow voids within the major intracranial circulation suggesting patency by spin echo criteria. Normal sella turcica, pituitary gland, infundibular stalk, optic chiasm and hypothalamus. Normal tectal plate and pineal gland. Normal midbrain, victoria and medulla. Encephalomalacia ankylosis in the right hemisphere of the cerebellum consistent with a prior infarct. Normal basal cisterns. Normal bilateral temporal bones. Normal bilateral internal auditory canals. There are bilateral ocular lens implants with otherwise normal intraorbital contents. Normal visualized paranasal sinuses. Normal calvarium and skull base. Normal visualized soft tissue structures. Normal visualized upper cervical spine. MRI/Brain without Contrast IMPRESSION: Involutional changes of the brain, as described above. Acute/subacute focal infarcts of the nolasco matter of the left parietal lobe, possibly embolic. Electronically Signed: Aydin Blankenship MD at 13:18 EDT ,
[2023-10-18 09:03] LABS: Hemoglobin A1c 6.4 % (3.8-5.6)
[2023-10-18] MEDS: Multivitamins,Ther W-Minerals Tablet 1 TABLET PO (09:10)
[2023-10-18] MEDS: Aspirin 81 MG TAB.CHEW PO (09:10)
[2023-10-18] MEDS: Thiamine Hydrochloride 100 MG Tablet PO (09:10)
[2023-10-18] MEDS: Folic Acid 1 MG Tablet PO (09:10)
[2023-10-18] MEDS: Clopidogrel Bisulfate 75 MG Tablet PO (09:10)
[2023-10-18] MEDS: 0.9% Normal Saline (1000mL) 1,000 ML 100 ML IV (09:11)
--- NOTE | 2023-10-18 10:53 | PN.HOSP_ITS ---
Reason for Visit Reason for Visit: Diagnoses Transient cerebral ischemic attack, unspecified (10/17/23) Chronic obstructive pulmonary disease with (acute) exacerbation (10/17/23) Hypoxemia (10/17/23) Subjective Subjective Saw patient at bedside this morning. Patient was sitting up comfortably in bed, conversing normally, in no acute distress. He was breathing comfortably on 3 L nasal cannula at rest. Patient had just returned from having his brain MRI done. He also had his echo done earlier this morning. He currently denied any neurologic symptoms. Notably came in with transient expressive aphasia, upper extremity weakness and transient possible facial droop. The aphasia and facial droop were fully resolved and he did not appear to have any upper extremity weakness on my exam. Patient stated that the steroids and breathing treatments for the COPD exacerbation were mild to moderately helpful for him. No other new concerns at this time. Objective Data Objective Data Vital Signs: Vital Signs Temp Pulse Resp BP Pulse Ox O2 Del Method O2 Flow Rate 98 F 94 18 108/92 H 97 Nasal Cannula 3 10/18/23 09:03 10/18/23 09:03 10/18/23 09:03 10/18/23 09:03 10/18/23 09:03 10/18/23 09:03 10/18/23 09:03 Oxygen Flow Rate (L/min) 3 Oxygen Delivery Method Nasal Cannula Weight: 88.2 kg Body Mass Index (BMI) 30.4 Intake & Output: Intake and Output for Last 24 Hours 10/16/23 10/17/23 10/18/23 23:59 23:59 23:59 Intake Total 1100 / 1100 Balance 1100 / 1100 Lab / Micro Data 10/18/23 06:10 10/18/23 06:10 Labs: Laboratory Results - last 24 hr 10/17/23 18:16: Phosphorus 2.8 10/17/23 18:43: WBC 12.1 H, RBC 3.91 L, Hgb 11.7 L, Hct 32.0 L, MCV 81.8, MCH 29.9, MCHC 36.6 H, RDW Std Deviation 39.5, RDW Coeff of Katherine 13.2, Plt Count 351, MPV 8.3, Immature Gran % (Auto) 0.200, Neut % (Auto) 43.7 L, Lymph % (Auto) 31.1, Faulkner % (Auto) 11.0 H, Eos % (Auto) 13.3 H, Baso % (Auto) 0.7, Absolute Neuts (auto) 5.3, Absolute Lymphs (auto) 3.77, Nucleated RBC % 0, PT 14.0, INR 1.1, APTT 36.4 H, Sodium 124 L, Potassium 3.6, Chloride 90 L, Carbon Dioxide 30.0, Anion Gap 4 L, BUN 10, Creatinine 1.24, Estim Creat Clear Calc 64.17, Est GFR (MDRD) Af Amer 75, Est GFR (MDRD) Non-Af 62, BUN/Creatinine Ratio 8.1 L, G lucose 167 H, Calcium 8.8, Magnesium 1.4 L, Total Bilirubin 0.60, Direct Bilirubin 0.15, AST 23, ALT 21, Alkaline Phosphatase 86, Troponin I High Sens 14, Total Protein 6.5, Albumin 3.6, Globulin 2.9 10/17/23 21:07: Procalcitonin < 0.04, Ethyl Alcohol < 3.0 10/17/23 22:31: POC Glucose 125 H 10/18/23 06:10: WBC 14.8 H, RBC 4.70, Hgb 14.0, Hct 39.2 L, MCV 83.4, MCH 29.8, MCHC 35.7, RDW Std Deviation 39.3, RDW Coeff of Katherine 13.0, Plt Count 435, MPV 8.4, Immature Gran % (Auto) 0.600, Neut % (Auto) 93.2 H, Lymph % (Auto) 5.2 L, Faulkner % (Auto) 0.8, Eos % (Auto) 0.0, Baso % (Auto) 0.2, Absolute Neuts (auto) 13.8 H, Absolute Lymphs (auto) 0.77 L, Nucleated RBC % 0, Sodium 129 L, Potassium 3.8, Chloride 98, Carbon Dioxide 22.0, Anion Gap 9, BUN 12, Creatinine 0.97, Estim Creat Clear Calc 79.40, Est GFR (MDRD) Af Amer 99, Est GFR (MDRD) Non-Af 82, BUN/Creatinine Ratio 12.3, Glucose 205 H, Hemoglobin A1c 6.4 H, Calcium 9.7, Magnesium 2.4, Iron 39 L, TIBC 314, Iron Saturation 12.4 L, Ferritin 218, Total Bilirubin 0.60, AST 28, ALT 23, Alkaline Phosphatase 115, Total Protein 7.7, Albumin 4.1, Globulin 3.6, Albumin/Globulin Ratio 1.1, Triglycerides 64, Cholesterol 166, LDL Cholesterol 116, VLDL Cholesterol 13, HDL Cholesterol 37 L, Vitamin B12 222, Folate 12.30, TSH 0.93 10/18/23 06:22: POC Glucose 201 H Micro: Microbiology 10/18/23 01:00 Mucosa - Nasopharyngeal Respiratory Panel (PCR) - Final Radiography Diagnostic Testing: Radiology Impression Brain CT 10/17/23 18:37 IMPRESSION: Atrophy and periventricular white matter ischemic changes. 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 No acute bleed. If concern for acute infarct MRI recommended Electronically Signed: Jhon Lagos MD at 19:02 EDT Reading Location ID and State: [facility] / [place] Tel [phone], Service support , ADDENDUM: 10/17/231920 IMPRESSION: Atrophy and periventricular white matter ischemic changes. 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 No acute bleed. If concern for acute infarct MRI recommended N.B. : The above Results were Read Back by Jhon Lagos MD to Tony Sainz DO, and understanding confirmed on 10/17/2023 19:14:55 (ET). Electronically Signed: Jhon Lagos MD at 19:02 EDT Reading Location ID and State: [facility] / [place] Tel [phone], Service support , Head/Neck CTA 10/17/23 18:38 IMPRESSION: Moderate atherosclerotic disease of the cervical carotids without evidence for hemodynamically significant stenosis Mild atherosclerotic disease the brain without evidence for significant stenosis or major vessel occlusion Electronically Signed: Jhon Lagos MD at 19:11 EDT , ADDENDUM: 10/17/231920 IMPRESSION: Moderate atherosclerotic disease of the cervical carotids without evidence for hemodynamically significant stenosis Mild atherosclerotic disease the brain without evidence for significant stenosis or major vessel occlusion N.B. : The above Results were Read Back by Jhon Lagos MD to Tony Sainz DO, and understanding confirmed on 10/17/2023 19:14:50 (ET). Electronically Signed: Jhon Lagos MD at 19:11 EDT , Chest X-Ray 10/17/23 19:20 IMPRESSION: No acute cardiopulmonary pathology Electronically Signed: Jhon Lagos MD at 19:41 EDT , Physical Exam Const alert, oriented x3 and no apparent distress Constitutional Narrative: Elderly male, obese, sitting up comfortably in bed, conversing normally, in no acute distress. General Appearance: cooperative and comfortable HEENT normocephalic, head/scalp atraumatic, hearing grossly normal bilaterally, nasal mucous membranes and turbinates normal and moist oral mucous membranes Eyes PERRL, EOMs intact bilaterally and conjunctivae normal Neck full ROM Chest inspection of chest normal Resp normal respiratory effort and no use of accessory muscles Resp Narrative: Breathing comfortably on 3 L nasal cannula at rest. Mildly decreased breath sounds bilaterally throughout but no wheezing or crackles noted. Cardio regular rate, regular rhythm, no murmurs and peripheral pulses 2+ throughout GI normal to inspection, nondistended, normoactive bowel sounds, soft to palpation, non-tender and non-distended Back/Spine normal ROM Extremity normal to inspection, full ROM and no pedal edema Skin no rashes or lesions noted Neuro moves all extremities and no focal motor deficits Speech: speech normal Psych mental status grossly normal Assessment & Plan Assessment/Plan (1) Acute ischemic left MCA stroke: (2) COPD exacerbation: (3) Hypoxia: PLAN: Plan Patient is a 67-year-old male who presented [facility] ED on 10/17/2023 with strokelike symptoms and shortness of breath. 1. Acute left MCA stroke ? Neurology following. Presented with transient aphasia, upper extremity weakness, dysphagia and concern for facial droop. ED workup negative for acute stroke, TNK not given. CT brain nonacute. CTA head/neck with moderate atherosclerotic carotid disease without significant stenosis. However, MRI brain without contrast showed acute/subacute focal infarcts of the left parietal lobe, possibly embolic. Echo showed EF 75%, mild concentric LV hypertrophy, normal left and right atria, negative bubble study, no significant valvular disease. Lipid panel with total cholesterol 166, LDL 116, HDL 37, triglycerides 64. A1c 6.4%. TSH normal. Per neurology, continue aspirin 81 mg daily and atorvastatin 80 mg daily going forward. Continue Plavix 75 mg daily for 21 days. Will prescribe a 30-day cardiac event monitor on discharge. Okay for discharge from neurology standpoint. 2. COPD exacerbation with acute hypoxia ? Presented with shortness of breath with known history of COPD. Chest x-ray on admit nonacute. Respiratory PCR panel negative. Patient with dry cough, not able to produce sputum sample. Treating for presumed COPD exacerbation with IV steroids, IV antibiotics and scheduled DuoNebs. Patient not on home oxygen, has been requiring 2 to 3 L nasal cannula since admission. Will plan for O2 ambulatory test tomorrow and likely de-escalation to p.o. steroids and antibiotics in preparation for discharge home tomorrow. 3. Acute on chronic hyponatremia, improved ? Sodium 124 on admit, baseline appears to be around 128-131. Improved to 129 by hospital day 2. No need to monitor further sodium levels. 4. Hypertension ? Not on any home medication. Permissive hypertension was allowed on admission, but patient now continues to be hypertensive and suspect this is due to underlying essential hypertension. Will start amlodipine 5 mg daily today and monitor. Chronic medical conditions: ? Obesity: BMI 30 on admit. Encouraged lifestyle modifications. Complicates hospital course, care and prognosis. ? Type 2 diabetes mellitus: A1c 6.4% on admit. Not on any home medications. Continue sliding scale insulin with meals while inpatient. ? Hyperlipidemia: Lipid panel as noted above. Continue atorvastatin 80 mg daily. ? Tobacco abuse: Current smoker. Nicotine patch provided per patient request. Encouraged cessation. ? History of alcohol abuse: Per history, not an active drinker. Encouraged continued cessation. DVT prophylaxis: Lovenox CODE STATUS: DNR CCA, okay to intubate Expected disposition: Home, 1 to 2 days Total clinical time spent by myself addressing the patient's medical issues, reviewing all the data, and collaborating with patient's care team: 35 minutes. Charges/Coding Visit Charges Inpatient E&M: 26334 Subs Hosp L2
[2023-10-18] MEDS: Insulin Lispro 100 UNIT/ML INSULN.PEN SC (11:59)
[2023-10-18 12:01] LABS: Bedside Glucose 236 mg/dL (74-106)
--- NOTE | 2023-10-18 12:01 | CASEMGMT ---
Addendum entered by Shereen Watson 10/18/23 12:24: Discussed CCN and Pt Link w/pt and daughter. Pt declines both. Original Note: RN?CM?TAX MANAGER?CM?to room to meet with patient for initial transition planning/care coordination?assessment.?RN?CM?introduced self and role at [facility].? Pt voices understanding and consents to?assessment?at this time.? Pt sitting up in chair in room in no distress at this time.? Daughter, Ysabel, @ bedside. Pt is A/O at this time and answers all questions appropriately.?? Care providers, pharmacy, and demographics verified/updated at this time. PCP: Cecilia العلي NP Specialists: none Preferred [facility]acy: [facility] Insurance: Jamshid BARAHONA Prescription Benefit:?yes Living Will/HPOA:?Pt does not currently have LW/HCPOA. LNOK: 3 adult children. Daughters, Ysabel and Tamir. Living Arrangements: Lives alone in apartment w/8 steps to enter. Independent and manages his own medications. Daughter, Tamir, is a nurse and takes pt to his appts. Transportation:?Pt does not drive. Daughters provide transportation. DME: ?States has the following DME:?nebulizer and nebulizer. Pt states he has not used the nebulizer for about a year, but states as far a he knows it is working properly and he has plenty of suplies for it. HHC/SNF: No hx of either. Pt wishes to return home and states has no concerns with going home at time of discharge.??CM?to follow for any further discharge planning/needs.? Pt and daughter voice no concerns/needs at this time.? PLAN:??Home w/family support and discharge plans in place. Parminder ROUSEN?RN?CM
--- NOTE | 2023-10-18 12:07 | CASEMGMT ---
SW completed a PHQ 9 as patient may have had a TIA. Patient scored a 0. Patient denies any depression or need for resources. Agatha SALMON
--- NOTE | 2023-10-18 13:56 | STROKE.CONS ---
Assessment and Plan: Stroke Assessment/Plan KIM SUN is a 67 M with a history of HTN, smoking, HLD and DM2 who presents for evaluation of TIA. Was seen on tele for aphasia and choking on food. Sx were improving, speech cleared, did not get TNK. Neurological examination shows NIH 0. Neuroimaging shows Acute L MCA infarct. - Anti-platelet medication: Aspirin 81 mg daily AND Plavix x 21 days. Then ASA only after - Occupational/ Physical therapy consults - NPO until swallow evaluation. IVF until able to take po - DVT prophylaxis with SCDs and heparin SQ - Vascular risk factor modification. The following are the recommended guidelines: LDL Goal < 70. Increase Statin to 80mg Smoking Cessation - counseled. Said he would try. Diabetes Management - A1C pending. If elevated, send to endocrine outpatient. intermediate blood pressure control should achieve <130/80 mmHg. BP management should aim to achieve fdc Control in a reasonable amount of time, taking into consideration the individual patient's requirements and characteristics. Weight Management: Goal for BMI is 18.5 -24.9 kg/m2. Proper diet and exercise. Alcohol: No more than 2 drinks/day for men - states he quit ETOH 1 year ago. - Promote lifestyle modification: weight control, physical activity, moderation of alcohol intake, moderate sodium intake. Followup with PCP in 1-2 weeks, and in Neurology clinic in 12 weeks HPI Consult Data Date of Consult: 10/18/23 HPI Narrative HPI Narrative: KIM SUN, is a 67 M who presents [facility] Medical History Diabetes mellitus, type 2 History of alcohol abuse Cannabis use disorder HLD (hyperlipidemia) Hypertension Tobacco use History of CVA (cerebrovascular accident) Allergy/AdvReac Type Severity Reaction Status Date / Time No Known Allergies Allergy Verified 10/17/23 19:37 Family History Mother Breast cancer Diabetes Father Heart disease Hypertension CAD (coronary artery disease) CVA (cerebral vascular accident) Myocardial infarction Surgical History History of tonsillectomy and adenoidectomy Social History (Updated 10/17/23 @ 22:04 by Francheska Sun) household members: none housing: apartment number of children: 3 service: No current occupational status: retired Smoking Status: Current every day smoker tobacco type: cigarettes Smoking packs per day: 1 Smoking cigarettes per day: 20.0 quit status: not considering quitting alcohol intake: former year quit: 2022 details: Quit 08/2022, prior 12-15 beers daily. substance use type: marijuana Vital Signs Vital Signs Vital Signs: 10/17/23 18:35 10/17/23 18:37 10/17/23 18:37 Temperature 98.3 F 98.3 F Temperature Source Oral Oral Pulse Rate 84 80 Pulse Strength Respiratory Rate 18 24 H Respiratory Effort Respiratory Depth Respiratory Pattern Blood Pressure 167/64 H 167/64 H Blood Pressure Mean 98 98 Blood Pressure Source Blood Pressure Position Blood Pressure Location Pulse Ox 93 91 Pulse Ox [AMBULATING on Room Air] Pulse Ox [At REST on Room Air] Oxygen Delivery Method Room Air Room Air Room Air Oxygen Flow Rate (L/min) Oxygen Flow Rate (L/min) [AMBULATING on Room Air] Oxygen Flow Rate (L/min) [At REST on Room Air] 10/17/23 19:01 10/17/23 19:26 10/17/23 19:32 Temperature 98.3 F 98.3 F Temperature Source Oral Oral Pulse Rate 73 84 Pulse Strength Respiratory Rate 23 H 18 Respiratory Effort Respiratory Depth Respiratory Pattern Blood Pressure 169/70 H 167/64 H Blood Pressure Mean 103 98 Blood Pressure Source Blood Pressure Position Blood Pressure Location Pulse Ox 92 93 89 Pulse Ox [AMBULATING on Room Air] Pulse Ox [At REST on Room Air] Oxygen Delivery Method Room Air Room Air Room Air Oxygen Flow Rate (L/min) Oxygen Flow Rate (L/min) [AMBULATING on Room Air] Oxygen Flow Rate (L/min) [At REST on Room Air] 10/17/23 19:35 10/17/23 20:35 10/17/23 21:00 Temperature Temperature Source Pulse Rate 70 87 63 Pulse Strength Respiratory Rate 21 H 16 18 Respiratory Effort Respiratory Depth Respiratory Pattern Blood Pressure 146/64 H 149/54 H 149/54 H Blood Pressure Mean 91 85 85 Blood Pressure Source Blood Pressure Position Blood Pressure Location Pulse Ox 94 95 94 Pulse Ox [AMBULATING on Room Air] Pulse Ox [At REST on Room Air] Oxygen Delivery Method Nasal Cannula Nasal Cannula Nasal Cannula Oxygen Flow Rate (L/min) 3 3 2 Oxygen Flow Rate (L/min) [AMBULATING on Room Air] Oxygen Flow Rate (L/min) [At REST on Room Air] 10/17/23 21:12 10/17/23 21:51 10/17/23 22:15 Temperature 98.2 F 97.9 F Temperature Source Oral Pulse Rate 60 60 Pulse Strength Respiratory Rate 13 16 Respiratory Effort Respiratory Depth Respiratory Pattern Blood Pressure 149/54 H 97/67 Blood Pressure Mean 85 77 Blood Pressure Source Monitor Blood Pressure Position Supine Blood Pressure Location Right Arm Pulse Ox 95 93 95 Pulse Ox [AMBULATING on Room Air] Pulse Ox [At REST on Room Air] Oxygen Delivery Method Nasal Cannula Nasal Cannula Oxygen Flow Rate (L/min) 2 3 Oxygen Flow Rate (L/min) [AMBULATING on Room Air] Oxygen Flow Rate (L/min) [At REST on Room Air] 10/17/23 22:23 10/18/23 01:10 10/18/23 01:10 Temperature 97.9 F Temperature Source Oral Pulse Rate 74 Pulse Strength Respiratory Rate 18 Respiratory Effort Normal Non-Labored Normal Non-Labored Respiratory Depth Normal Normal Respiratory Pattern Normal Normal Blood Pressure 152/61 H Blood Pressure Mean 91 Blood Pressure Source Monitor Blood Pressure Position Supine Blood Pressure Location Left Arm Pulse Ox 95 Pulse Ox [AMBULATING on Room Air] Pulse Ox [At REST on Room Air] Oxygen Delivery Method Nasal Cannula Nasal Cannula Nasal Cannula Oxygen Flow Rate (L/min) 2 3 3 Oxygen Flow Rate (L/min) [AMBULATING on Room Air] Oxygen Flow Rate (L/min) [At REST on Room Air] 10/18/23 05:05 10/18/23 08:01 10/18/23 09:03 Temperature 97.9 F 98 F Temperature Source Oral Oral Pulse Rate 98 94 Pulse Strength Respiratory Rate 18 18 Respiratory Effort Normal Non-Labored Respiratory Depth Normal Respiratory Pattern Normal Blood Pressure 175/98 H 108/92 H Blood Pressure Mean 123 97 Blood Pressure Source Monitor Monitor Blood Pressure Position Semi-Fowlers Semi-Fowlers Blood Pressure Location Left Arm Left Arm Pulse Ox 94 97 Pulse Ox [AMBULATING on Room Air] Pulse Ox [At REST on Room Air] Oxygen Delivery Method Room Air Nasal Cannula Nasal Cannula Oxygen Flow Rate (L/min) 3 3 Oxygen Flow Rate (L/min) [AMBULATING on Room Air] Oxygen Flow Rate (L/min) [At REST on Room Air] 10/18/23 09:20 10/18/23 11:52 10/18/23 12:53 Temperature Temperature Source Pulse Rate Pulse Strength Normal (2+) Respiratory Rate Respiratory Effort Respiratory Depth Respiratory Pattern Blood Pressure Blood Pressure Mean Blood Pressure Source Blood Pressure Position Blood Pressure Location Pulse Ox 97 Pulse Ox [AMBULATING on Room Air] 94 Pulse Ox [At REST on Room Air] 95 Oxygen Delivery Method Oxygen Flow Rate (L/min) 3 Oxygen Flow Rate (L/min) [AMBULATING on Room Air] 0 Oxygen Flow Rate (L/min) [At REST on Room Air] 0 10/18/23 13:00 10/18/23 13:03 Temperature 98.1 F Temperature Source Oral Pulse Rate 87 Pulse Strength Respiratory Rate 18 Respiratory Effort Respiratory Depth Respiratory Pattern Blood Pressure 155/67 H Blood Pressure Mean 96 Blood Pressure Source Monitor Blood Pressure Position Sitting Blood Pressure Location Right Arm Pulse Ox 97 97 Pulse Ox [AMBULATING on Room Air] Pulse Ox [At REST on Room Air] Oxygen Delivery Method Room Air Oxygen Flow Rate (L/min) 3 Oxygen Flow Rate (L/min) [AMBULATING on Room Air] Oxygen Flow Rate (L/min) [At REST on Room Air] Weight Weight: 88.2 kg Body Mass Index (BMI) 30.4 EEG Results Procedure Details EEG Procedure Details: KIM SUN is a 67 year old M with a past medical history of , who presents for evaluation of Electroencephalogram on DATE at TIME NIHSS NIHSS Nursing Documentation NIHSS Nursing Documentation: NIHSS: Ischemic Stroke/TIA Start: 10/17/23 21:48 Text: For PCU Patients: NIH and Neuro Check every 4 Status: Active hours, PRN and with change in RN caregiver. Freq: [id number] Protocol: Activity Type Activity Date Activity User E-sign Co-sign Detail Recorded Client Recorded Date Recorded By Document 10/18/23 13:00 MD desktop 10/18/23 13:25 10/18/23 13:00 NIH Stroke Scale [NIHSS] A score of 0 is normal or asymptomatic . Total possible score is 42. Inpatient: RN or Physician to activate a stroke alert for onset of new stroke symptoms or with NIHSS increase >/= 3 points. Following change in neurological status, NIHSS will be performed per physician order or more frequently PRN. -1a. Level of Consciousness Alert; keenly responsive -1b. LOC Questions Answers BOTH questions correctly. -1c. LOC Commands Performs both tasks correctly . -2. Best Gaze Normal -3. Visual No visual loss -4. Facial Palsy Normal symmetrical movements -5a. Left Arm No drift; arm holds 90 (or 45 ) degrees for full 10 seconds -5b. Right Arm No drift; arm holds 90 (or 45 ) degrees for full 10 seconds -6a. Left Leg No drift; leg holds 30-degree position for full 5 seconds -6b. Right Leg No drift; leg holds 30-degree position for full 5 seconds -7. Limb Ataxia Absent -8. Sensory Normal; no sensory loss -9. Best Language No aphasia; normal -10. Dysarthria Normal -11. Extinction and Inattention No abnormality -Total 0 Query Text:A score of 0 is normal or asymptomatic. Total possible score is 42 . ED: Notify Physician for NIHSS increase by > / = 3 points. Inpatient: RN or Physician to activate a stroke alert for NIHSS increase of > / = 3 points. Coma Scale [Assess] -Eye Opening Spontaneous -Motor Obeys Commands -Verbal Oriented [Total] -Coma Scale Total 15 Physical Exam Neuro Sensorium / Orientation: awake, alert, oriented to person and oriented to place Speech: speech normal Gait (Neuro): normal gait Lab / Micro Data 10/18/23 06:10 10/18/23 06:10 Labs: Laboratory Results - last 24 hr 10/17/23 18:16: Phosphorus 2.8 10/17/23 18:43: WBC 12.1 H, RBC 3.91 L, Hgb 11.7 L, Hct 32.0 L, MCV 81.8, MCH 29.9, MCHC 36.6 H, RDW Std Deviation 39.5, RDW Coeff of Katherine 13.2, Plt Count 351, MPV 8.3, Immature Gran % (Auto) 0.200, Neut % (Auto) 43.7 L, Lymph % (Auto) 31.1, Craven % (Auto) 11.0 H, Eos % (Auto) 13.3 H, Baso % (Auto) 0.7, Absolute Neuts (auto) 5.3, Absolute Lymphs (auto) 3.77, Nucleated RBC % 0, PT 14.0, INR 1.1, APTT 36.4 H, Sodium 124 L, Potassium 3.6, Chloride 90 L, Carbon Dioxide 30.0, Anion Gap 4 L, BUN 10, Creatinine 1.24, Estim Creat Clear Calc 64.17, Est GFR (MDRD) Af Amer 75, Est GFR (MDRD) Non-Af 62, BUN/Creatinine Ratio 8.1 L, Glucose 167 H, Calcium 8.8, Magnesium 1.4 L, Total Bilirubin 0.60, Direct Bilirubin 0.15, AST 23, ALT 21, Alkaline Phosphatase 86, Troponin I High Sens 14, Total Protein 6.5, Albumin 3.6, Globulin 2.9 10/17/23 21:07: Procalcitonin < 0.04, Ethyl Alcohol < 3.0 10/17/23 22:31: POC Glucose 125 H 10/18/23 06:10: WBC 14.8 H, RBC 4.70, Hgb 14.0, Hct 39.2 L, MCV 83.4, MCH 29.8, MCHC 35.7, RDW Std Deviation 39.3, RDW Coeff of Katherine 13.0, Plt Count 435, MPV 8.4, Immature Gran % (Auto) 0.600, Neut % (Auto) 93.2 H, Lymph % (Auto) 5.2 L, Craven % (Auto) 0.8, Eos % (Auto) 0.0, Baso % (Auto) 0.2, Absolute Neuts (auto) 13.8 H, Absolute Lymphs (auto) 0.77 L, Nucleated RBC % 0, Sodium 129 L, Potassium 3.8, Chloride 98, Carbon Dioxide 22.0, Anion Gap 9, BUN 12, Creatinine 0.97, Estim Creat Clear Calc 79.40, Est GFR (MDRD) Af Amer 99, Est GFR (MDRD) Non-Af 82, BUN/Creatinine Ratio 12.3, Glucose 205 H, Hemoglobin A1c 6.4 H, Calcium 9.7, Magnesium 2.4, Iron 39 L, TIBC 314, Iron Saturation 12.4 L, Ferritin 218, Total Bilirubin 0.60, AST 28, ALT 23, Alkaline Phosphatase 115, Total Protein 7.7, Albumin 4.1, Globulin 3.6, Albumin/Globulin Ratio 1.1, Triglycerides 64, Cholesterol 166, LDL Cholesterol 116, VLDL Cholesterol 13, HDL Cholesterol 37 L, Vitamin B12 222, Folate 12.30, TSH 0.93 10/18/23 06:22: POC Glucose 201 H 10/18/23 11:43: POC Glucose 236 H Micro: Microbiology 10/18/23 01:00 Mucosa - Nasopharyngeal Respiratory Panel (PCR) - Final Imaging Radiology Impression Brain CT 10/17/23 18:37 IMPRESSION: Atrophy and periventricular white matter ischemic changes. 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 No acute bleed. If concern for acute infarct MRI recommended Electronically Signed: Jhon Lagos MD at 19:02 EDT , ADDENDUM: 10/17/231920 IMPRESSION: Atrophy and periventricular white matter ischemic changes. 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 No acute bleed. If concern for acute infarct MRI recommended N.B. : The above Results were Read Back by Jhon Lagos MD to Tony Sainz DO, and understanding confirmed on 10/17/2023 19:14:55 (ET). Electronically Signed: Jhon Lagos MD at 19:02 EDT , Head/Neck CTA 10/17/23 18:38 IMPRESSION: Moderate atherosclerotic disease of the cervical carotids without evidence for hemodynamically significant stenosis Mild atherosclerotic disease the brain without evidence for significant stenosis or major vessel occlusion Electronically Signed: Jhon Lagos MD at 19:11 EDT , ADDENDUM: 10/17/231920 IMPRESSION: Moderate atherosclerotic disease of the cervical carotids without evidence for hemodynamically significant stenosis Mild atherosclerotic disease the brain without evidence for significant stenosis or major vessel occlusion N.B. : The above Results were Read Back by Jhon Lagos MD to [employer] , DO, and understanding confirmed on 10/17/2023 19:14:50 (ET). Electronically Signed: Jhon Lagos MD at 19:11 EDT , Chest X-Ray 10/17/23 19:20 IMPRESSION: No acute cardiopulmonary pathology Electronically Signed: Jhon Lagos MD at 19:41 EDT , Echocardiogram 10/17/23 21:48 Interpretation Summary Mild concentric left ventricular hypertrophy. The left ventricular ejection fraction is 75 %. Bubble contrast study is negative for PFO/ASD. Right ventricular systolic pressure estimated to be 39 mmHg. Mild diffuse aortic valve thickening and calcification. Mild aortic stenosis. Ordering Physician: Altagracia Wilson Referring Physician: DAVID ARITA Performed By: Poly Jean-Baptiste RDCS Brain MRI 10/18/23 09:00 IMPRESSION: Involutional changes of the brain, as described above. Acute/subacute focal infarcts of the nolasco matter of the left parietal lobe, possibly embolic. Electronically Signed: Aydin Blankenship MD at 13:18 EDT , ADDENDUM: 10/18/23 1340 IMPRESSION: Involutional changes of the brain, as described above. Acute/subacute focal infarcts of the nolasco matter of the left parietal lobe, possibly embolic. N.B. : The above Results were Read Back by Aydin Blankenship MD to Bean Montanez DO, and understanding confirmed on 10/18/2023 13:33:54 (ET). Electronically Signed: Aydin Blankenship MD at 13:18 EDT , Active Medications Active Medications Active Medications: Current Medications Generic Name Dose Route Start Last Admin Trade Name Freq PRN Reason Stop Dose Admin Acetaminophen 650 mg 10/17/23 21:48 Acetaminophen 325 Mg Tablet PO Q4H PRN PRN Fever, pain 1-01/16 Al Hydroxide/Mg Hydroxide 30 ml 10/17/23 21:48 Mag Hydrox/Al Hydrox/Simeth 30 Ml Udc PO Q6H PRN PRN Gastric Burning Albuterol Sulfate 2.5 mg 10/17/23 21:48 Albuterol 2.5 Mg/3 Ml Vial.Neb. INHALATION Q2H PRN PRN Dyspnea, wheezing Albuterol/Ipratropium 3 ml 10/17/23 21:48 10/18/23 06:56 Ipratropium/Albuterol Sulfate 3 Ml Ampul.Neb INHALATION 3 ml Q4HWA.RT ALLI Administration Aspirin 81 mg 10/18/23 08:00 10/18/23 09:10 Aspirin 81 Mg Tab.Chew PO 81 mg BREAKFAST ALLI Administration Atorvastatin Calcium 40 mg 10/18/23 22:00 Atorvastatin Calcium 40 Mg Tablet PO QHS ALLI Clopidogrel Bisulfate 75 mg 10/18/23 10:00 10/18/23 09:10 Clopidogrel Bisulfate 75 Mg Tablet PO 75 mg DAILY ALLI Administration Enoxaparin Sodium 40 mg 10/18/23 10:00 10/18/23 09:10 Enoxaparin 40 Mg/0.4 Ml Syringe SC Not Given DAILY ALLI Folic Acid 1 mg 10/18/23 08:00 10/18/23 09:10 Folic Acid 1 Mg Tablet PO 1 mg BREAKFAST ALLI Administration Glucagon 1 mg 10/17/23 21:48 Glucagon 1 Mg/Ml Syringe IM X1 PRN HYPOGLYCEMIA Protocol Guaifenesin 20 ml 10/17/23 21:48 Guaifenesin 10 Ml Udc (200mg/10ml) PO Q4H PRN PRN COUGH Hydralazine HCl 5 mg 10/17/23 21:48 Hydralazine 20 Mg/Ml Vial IV 10/18/23 21:48 Q30M PRN maintain BP parameters with HR <60 Dextrose 250 mls @ 999 mls/hr 10/17/23 21:48 Dextrose 10%-Water IV .Q16M PRN HYPOGLYCEMIA Protocol Insulin Human Lispro 0 unit 10/17/23 22:00 10/18/23 11:59 Insulin Lispro 100 Unit/Ml Insuln.Pen SC 3 u ACHS ALLI Administration Protocol Melatonin 3 mg 10/17/23 21:48 Melatonin 3 Mg Tablet PO QHS PRN PRN INSOMNIA Methylprednisolone 40 mg 10/18/23 18:00 Methylprednisolone 40 Mg/Ml Vial IV BIDLX ALLI Multivitamins/Minerals 1 tablet 10/18/23 08:00 10/18/23 09:10 Multivitamins,Ther W-Minerals Tablet PO 1 tablet BREAKFAST [facility] Administration Nicotine 21 mg 10/17/23 22:45 10/18/23 09:11 Nicotine 21 Mg Patch TD Not Given DAILY [facility] Ondansetron HCl 4 mg 10/17/23 21:48 Ondansetron 4 Mg/2 Ml Vial IV Q8H PRN PRN NAUSEA/VOMITING Prochlorperazine Edisylate 5 mg 10/17/23 21:48 Prochlorperazine 10 Mg/2 Ml Vial IV Q4H PRN PRN Breakthrough Nausea/Vomiting Senna/Docusate Sodium 2 tablet 10/17/23 21:48 Senna/Docusate Sodium 1 Tablet PO BID PRN PRN Constipation Sodium Chloride 10 - 40 ml 10/17/23 22:05 0.9% Saline Lock 10 Ml Syringe IV UD PRN SALINE FLUSH Thiamine HCl 100 mg 10/18/23 08:00 10/18/23 09:10 Thiamine Hydrochloride 100 Mg Tablet PO 100 mg BREAKFAST [facility] Administration
--- NOTE | 2023-10-18 14:45 | PCM.DC ---
Discharge Instructions Diet Discharge Diet: No restrictions Activity Discharge Activity: No Restrictions Follow Up Care Test Results: Test results from this visit will be discussed in further detail at your follow-up appointment, if applicable. Discharge Plan Admission Admit Date/Time: 10/17/23 19:54 Primary Reason for Your Visit: strokelike symptoms Attending Provider: Garret Montanez Primary Care Provider: Cecilia العلي NP Consulting Providers: Rod Melendez; Bonifacio Romero; Anabel Small; Soha Lr; Aretha Michaels; Montrell Patel; Hillary Garcia; Taran Lindsey; Hunter Kirby; Cayetano Salmeron; Lashonda Phillip; Yonas Cortez; Antonia Roberto; Melisa Short; Aniket Christopher; Benigno Valdez; Kate Ball; Arnaldo Carranza; Slime Desouza; Maura Hampton; Altagracia Wilson Instructions Additional Instructions / Restrictions: Please take the clopidogrel (Plavix) for 21 days for your acute stroke. Take the aspirin, atorvastatin and amlodipine daily going forward. A heart monitor will be mailed to you? please wear this for 1 week so we can make sure that no heart rhythm issues are contributing to the stroke that you had. The cardiology office will call you after you have completed the 1 week of heart monitoring to discuss the results with you. Discharge Orders/Prescriptions Prescriptions: New atorvastatin 80 mg Tablet 80 mg PO QHS 90 Days Qty: 90 0RF clopidogrel 75 mg Tablet 75 mg PO DAILY 21 Days Qty: 21 0RF amlodipine 5 mg Tablet 5 mg PO DAILY 90 Days Qty: 90 0RF aspirin 81 mg Tablet,Chewable 81 mg PO BREAKFAST 90 Days Qty: 90 0RF Other Ambulatory Orders: 30 Day Event Recorder Preventi (Urgent) Timeframe: 1 Week Facility: [facility] - Location: Cardiovascular Services Ordered By: Dr. Garret Montanez Referrals / Follow Up: Cecilia العلي NP, CLINICAL RESOURCE NURSE-C [Primary Care Provider] - Disposition Disposition (needs filled in before D/C Order can be placed): Home, Self Care
--- NOTE | 2023-10-18 14:52 | DS.PCM_ITS ---
Providers Date of Admission: 10/17/23 Date of Discharge: 10/18/23 Primary Care Physician: JANINE rBadshaw Consultations 10/17/23 21:48 Consult: Tele-Neurology Routine Consulting Provider: [facility] Reason for Consult: Acute Ischemic Stroke/TIA EMERGENT Consult: Yes MD Notified: Yes Date Notified: 10/17/23 Time Notified: 19:55 Method of Notification: ED Physician Initiated Nursing Unit Staff Notify [facility] of Tele-Neurology Consult: Yes Reason For Visit: TIA, HIGH RISK Diagnosis Discharge Diagnosis (1) Acute ischemic left MCA stroke: Status: Acute Code(s): I63.512 - Cerebral infarction due to unspecified occlusion or stenosis of left middle cerebral artery (2) COPD exacerbation: Status: Chronic Code(s): J44.1 - Chronic obstructive pulmonary disease with (acute) exacerbation (3) Hypoxia: Status: Acute Code(s): R09.02 - Hypoxemia Medications at Discharge Home Medications amlodipine 5 mg tablet 5 mg PO DAILY 90 days #90 tabs 10/18/23 aspirin 81 mg chewable tablet 81 mg PO BREAKFAST 90 days #90 tabs 10/18/23 atorvastatin 80 mg tablet 80 mg PO QHS 90 days #90 tabs 10/18/23 clopidogrel 75 mg tablet 75 mg PO DAILY 21 days #21 tabs 10/18/23 Hospital Course Operations None Procedures EKG, Transthoracic echo and - (CT brain without contrast, CTA head/neck, chest x-ray, MRI brain without contrast) Summary of Care Provided Minutes Spent on Discharge: 35 Hospital Course: Patient is a 67-year-old male who presented [facility] ED on 10/17/2023 with strokelike symptoms and shortness of breath. Short hospital course as noted below. Patient discharged home in stable condition on 10/17. . Acute left MCA stroke ? Neurology followed. Presented with transient aphasia, upper extremity weakness, dysphagia and concern for facial droop. ED workup negative for acute stroke, TNK not given. CT brain nonacute. CTA head/neck with moderate atherosclerotic carotid disease without significant stenosis. However, MRI brain without contrast showed acute/subacute focal infarcts of the left parietal lobe, possibly embolic. Echo showed EF 75%, mild concentric LV hypertrophy, normal left and right atria, negative bubble study, no significant valvular disease. Lipid panel with total cholesterol 166, LDL 116, HDL 37, triglycerides 64. A1c 6.4%. TSH normal. No residual neurologic deficits on hospital day 2. Per neurology, continue aspirin 81 mg daily and atorvastatin 80 mg daily going forward. Continue Plavix 75 mg daily for 21 days. Will prescribe a 7-day cardiac event monitor on discharge. Stable for discharge home on 10/17 with no therapy needs. 2. Concern for COPD exacerbation with acute hypoxia ? Presented with shortness of breath with known history of COPD. Chest x-ray on admit nonacute. Respiratory PCR panel negative. Patient with dry cough, not able to produce sputum sample. Had mild hypoxia on day of admission that resolved by hospital day 2, completed O2 ambulatory testing and did not require any oxygen on discharge. Was treated with scheduled DuoNebs and IV steroids and IV antibiotics while inpatient. Have low concern for active pneumonia and also have low concern for true COPD exacerbation, so we will not continue steroids or antibiotics on discharge. Will prescribe rescue albuterol inhaler for patient on discharge. 3. Acute on chronic hyponatremia, resolved ? Sodium 124 on admit, baseline appears to be around 128-131. Improved to 129 by hospital day 2. No need to monitor further sodium levels. 4. Hypertension ? Not on any home medication. Permissive hypertension was allowed on admission, but patient now continues to be hypertensive and suspect this is due to underlying essential hypertension. Will start amlodipine 5 mg daily on discharge. Chronic medical conditions: ? Obesity: BMI 30 on admit. Encouraged lifestyle modifications. Complicates hospital course, care and prognosis. ? Type 2 diabetes mellitus: A1c 6.4% on admit. Not on any home medications. Continue sliding scale insulin with meals while inpatient. ? Hyperlipidemia: Lipid panel as noted above. Continue atorvastatin 80 mg daily. ? Tobacco abuse: Current smoker. Nicotine patch provided per patient request. Encouraged cessation. ? History of alcohol abuse: Per history, not an active drinker. Encouraged continued cessation. DVT prophylaxis: Lovenox CODE STATUS: DNR CCA, okay to intubate Expected disposition: Home, 1 to 2 days *Patient notably was admitted under inpatient status given concern for COPD exacerbation with hypoxia. Patient had very good improvement in respiratory symptoms by hospital day 2 and completed O2 ambulatory testing with no need for home oxygen on discharge. He recovered more quickly than anticipated from a respiratory standpoint and was able to be discharged on hospital day 2. Total clinical time spent by myself addressing the patient's medical issues, reviewing all the data, and collaborating with patient's care team: 35 minutes. Physical Exam Const alert, oriented x3 and no apparent distress Constitutional Narrative: Elderly male, obese, sitting up comfortably in bed, conversing normally, in no acute distress. General Appearance: cooperative and comfortable HEENT normocephalic, head/scalp atraumatic, hearing grossly normal bilaterally, nasal mucous membranes and turbinates normal and moist oral mucous membranes Eyes PERRL, EOMs intact bilaterally and conjunctivae normal Neck full ROM Chest inspection of chest normal Resp normal respiratory effort and no use of accessory muscles Resp Narrative: Breathing comfortably on room air at rest. Mildly decreased breath sounds bilaterally throughout but no wheezing or crackles noted. Cardio regular rate, regular rhythm, no murmurs and peripheral pulses 2+ throughout GI normal to inspection, nondistended, normoactive bowel sounds, soft to palpation, non-tender and non-distended Back/Spine normal ROM Extremity normal to inspection, full ROM and no pedal edema Skin no rashes or lesions noted Neuro moves all extremities and no focal motor deficits Speech: speech normal Psych mental status grossly normal Weight / BMI Weight Weight: 88.2 kg Body Mass Index (BMI) 30.4 ABG / Lab / Microbiology Data 10/18/23 06:10 10/18/23 06:10 Laboratory: Laboratory Results - last 24 hr 10/17/23 18:16: Phosphorus 2.8 10/17/23 18:43: WBC 12.1 H, RBC 3.91 L, Hgb 11.7 L, Hct 32.0 L, MCV 81.8, MCH 29.9, MCHC 36.6 H, RDW Std Deviation 39.5, RDW Coeff of Katherine 13.2, Plt Count 351, MPV 8.3, Immature Gran % (Auto) 0.200, Neut % (Auto) 43.7 L, Lymph % (Auto) 31.1, [place] % (Auto) 11.0 H, Eos % (Auto) 13.3 H, Baso % (Auto) 0.7, Absolute Neuts (auto) 5.3, Absolute Lymphs (auto) 3.77, Nucleated RBC % 0, PT 14.0, INR 1.1, APTT 36.4 H, Sodium 124 L, Potassium 3.6, Chloride 90 L, Carbon Dioxide 30.0, Anion Gap 4 L, BUN 10, Creatinine 1.24, Estim Creat Clear Calc 64.17, Est GFR (MDRD) Af Amer 75, Est GFR (MDRD) Non-Af 62, BUN/Creatinine Ratio 8.1 L, G lucose 167 H, Calcium 8.8, Magnesium 1.4 L, Total Bilirubin 0.60, Direct Bilirubin 0.15, AST 23, ALT 21, Alkaline Phosphatase 86, Troponin I High Sens 14, Total Protein 6.5, Albumin 3.6, Globulin 2.9 10/17/23 21:07: Procalcitonin < 0.04, Ethyl Alcohol < 3.0 10/17/23 22:31: POC Glucose 125 H 10/18/23 06:10: WBC 14.8 H, RBC 4.70, Hgb 14.0, Hct 39.2 L, MCV 83.4, MCH 29.8, MCHC 35.7, RDW Std Deviation 39.3, RDW Coeff of [place] 13.0, Plt Count 435, MPV 8.4, Immature Gran % (Auto) 0.600, Neut % (Auto) 93.2 H, Lymph % (Auto) 5.2 L, [place] % (Auto) 0.8, Eos % (Auto) 0.0, Baso % (Auto) 0.2, Absolute Neuts (auto) 13.8 H, Absolute Lymphs (auto) 0.77 L, Nucleated RBC % 0, Sodium 129 L, Potassium 3.8, Chloride 98, Carbon Dioxide 22.0, Anion Gap 9, BUN 12, Creatinine 0.97, Estim Creat Clear Calc 79.40, Est GFR (MDRD) Af Amer 99, Est GFR (MDRD) Non-Af 82, BUN/Creatinine Ratio 12.3, Glucose 205 H, Hemoglobin A1c 6.4 H, Calcium 9.7, Magnesium 2.4, Iron 39 L, TIBC 314, Iron Saturation 12.4 L, Ferritin 218, Total Bilirubin 0.60, AST 28, ALT 23, Alkaline Phosphatase 115, Total Protein 7.7, Albumin 4.1, Globulin 3.6, Albumin/Globulin Ratio 1.1, Triglycerides 64, Cholesterol 166, LDL Cholesterol 116, VLDL Cholesterol 13, HDL Cholesterol 37 L, Vitamin B12 222, Folate 12.30, TSH 0.93 10/18/23 06:22: POC Glucose 201 H 10/18/23 11:43: POC Glucose 236 H Microbiology: Microbiology 10/18/23 01:00 Mucosa - Nasopharyngeal Respiratory Panel (PCR) - Final Radiography Diagnostic Testing: Radiology Impression Brain CT 10/17/23 18:37 IMPRESSION: Atrophy and periventricular white matter ischemic changes. 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 No acute bleed. If concern for acute infarct MRI recommended Electronically Signed: Jhon Lagos MD at 19:02 EDT , ADDENDUM: 10/17/231920 IMPRESSION: Atrophy and periventricular white matter ischemic changes. 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 No acute bleed. If concern for acute infarct MRI recommended N.B. : The above Results were Read Back by Jhon Lagos MD to Toyn Sainz DO, and understanding confirmed on 10/17/2023 19:14:55 (ET). Electronically Signed: Jhon Lagos MD at 19:02 EDT , Head/Neck CTA 10/17/23 18:38 IMPRESSION: Moderate atherosclerotic disease of the cervical carotids without evidence for hemodynamically significant stenosis Mild atherosclerotic disease the brain without evidence for significant stenosis or major vessel occlusion Electronically Signed: Jhon Lagos MD at 19:11 EDT , ADDENDUM: 10/17/231920 IMPRESSION: Moderate atherosclerotic disease of the cervical carotids without evidence for hemodynamically significant stenosis Mild atherosclerotic disease the brain without evidence for significant stenosis or major vessel occlusion N.B. : The above Results were Read Back by Jhon Lagos MD to Tony Sainz DO, and understanding confirmed on 10/17/2023 19:14:50 (ET). Electronically Signed: Jhon Lagos MD at 19:11 EDT , Chest X-Ray 10/17/23 19:20 IMPRESSION: No acute cardiopulmonary pathology Electronically Signed: Jhon Lagos MD at 19:41 EDT , Echocardiogram 10/17/23 21:48 Interpretation Summary Mild concentric left ventricular hypertrophy. The left ventricular ejection fraction is 75 %. Bubble contrast study is negative for PFO/ASD. Right ventricular systolic pressure estimated to be 39 mmHg. Mild diffuse aortic valve thickening and calcification. Mild aortic stenosis. Ordering Physician: Altagracia Wilson Referring Physician: CECILIA ARITA Performed By: Poly Jean-Baptiste RDCS Brain MRI 10/18/23 09:00 IMPRESSION: Involutional changes of the brain, as described above. Acute/subacute focal infarcts of the [place]olas[place] matter of the left parietal lobe, possibly embolic. Electronically Signed: Aydin Blankenship MD at 13:18 EDT , ADDENDUM: 10/18/23 1340 IMPRESSION: Involutional changes of the brain, as described above. Acute/subacute focal infarcts of the nolasco matter of the left parietal lobe, possibly embolic. N.B. : The above Results were Read Back by Aydin Blankenship MD to Bean Montanez DO, and understanding confirmed on 10/18/2023 13:33:54 (ET). Electronically Signed: Aydin Blankenship MD at 13:18 EDT , D/C Instructions Discharge Diet: No restrictions Meaningful Use Info Meaningful Use Meaningful Use Diagnoses (Choose all that apply): Ischemic CVA CVA Therapy Assessed for PT,OT and/or ST?: Yes Ischemic Stroke Antithrombotic order at d/c?: Yes Dx of Atrial fib/flutter?: No Statin Dosing Therapy Reference: STATIN DOSE THERAPY REFERENCE: * Patients > 75 years receive moderate or high dose statin therapy. * Patients 75 years or YOUNGER should receive HIGH intensity statin dose unless contraindicated. You will be required to document reason for non-treatment if statin daily dose does not meet guidelines. HIGH DOSE STATIN THERAPY DAILY Atorvastatin > than or = to 40 mg Rosuvastatin > than or = to 20 mg Amlodipine + Atorvastatin > than or = to 2.5/40 mg Ezetimibe + Simvastatin 10/80 mg Simvastatin 80mg Statins at discharge?: Yes If patient is 75 or younger, pt will be discharged on HIGH intensity statin.: Y es Primary Dx Acute Ischemic CVA?: Yes Discharge Plan Admission Admit Date/Time: 10/17/23 19:54 Primary Reason for Your Visit: strokelike symptoms Attending Provider: Garret Montanez Primary Care Provider: Cecilia Arita NP Consulting Providers: Rod Melendez; Bonifacio Romero; Anabel Small; Soha Lr; Aretha Michaels; Montrell Patel; Hillary Garcia; Taran Lindsey; Hunter Kirby; Cayetano Salmeron; Lashonda Phillip; Yonas Cortez; Antonia Roberto; Melisa Short; Aniket Christopher; Benigno Valdez; Kate Ball; Arnaldo Carranza; Slime Desouza; Memo,Maura; Altagracia Wilson Instructions Additional Instructions / Restrictions: Please take the clopidogrel (Plavix) for 21 days for your acute stroke. Take the aspirin, atorvastatin and amlodipine daily going forward. A heart monitor will be mailed to you? please wear this for 1 week so we can make sure that no heart rhythm issues are contributing to the stroke that you had. The cardiology office will call you after you have completed the 1 week of heart monitoring to discuss the results with you. Discharge Orders/Prescriptions Prescriptions: New atorvastatin 80 mg Tablet 80 mg PO QHS 90 Days Qty: 90 0RF clopidogrel 75 mg Tablet 75 mg PO DAILY 21 Days Qty: 21 0RF amlodipine 5 mg Tablet 5 mg PO DAILY 90 Days Qty: 90 0RF aspirin 81 mg Tablet,Chewable 81 mg PO BREAKFAST 90 Days Qty: 90 0RF Other Ambulatory Orders: 30 Day Event Recorder Preventi (Urgent) Timeframe: 1 Week Facility: [facility] - Location: Cardiovascular Services Ordered By: Dr. Garret Montanez Referrals / Follow Up: Cecilia Arita NP, IMPLEMENTATION MANAGER-C [Primary Care Provider] - Disposition Disposition (needs filled in before D/C Order can be placed): Home, Self Care Charges/Coding Visit Charges Inpatient E&M: 95157 Disch Hosp >30min
[2023-10-18] MEDS: amLODIPine 5 MG Tablet PO (14:53)
--- NOTE | 2023-10-18 15:30 | PHA.DC.MC.R ---
Pharmacy [facility] Service has performed discharge medication reconciliation and counseling for this patient. The patient's discharge medication list was reviewed for discrepancies and discrepancies were resolved. The patient was counseled on the following discharge medications and changes in medications for homegoing were reviewed. 1. NORVASC 2. ASPIRIN 3. LIPITOR 4. PLAVIX The Reason for Use, instructions for use, and potential side effects were reviewed for all new medications. The patient's questions regarding all of their medications were answered. The patient was able to verbally demonstrate an understanding of their discharge medications. The patient was counselled by noris Galeano PharmD Candidate Medications at Discharge Home Medications amlodipine 5 mg tablet 5 mg PO DAILY 90 days #90 tabs 10/18/23 aspirin 81 mg chewable tablet 81 mg PO BREAKFAST 90 days #90 tabs 10/18/23 atorvastatin 80 mg tablet 80 mg PO QHS 90 days #90 tabs 10/18/23 clopidogrel 75 mg tablet 75 mg PO DAILY 21 days #21 tabs 10/18/23
== END 2023-10-18 15:52 | disposition home or self-care (01) | DRG 65 ==
LOC: ED 20:14 → PCU 20:39
PROVIDERS: Admitting Provider Family Medicine; Emergency Provider Emergency Medicine; PCP Nurse Practitioner Family; Visit Provider Hospitalist
DX: I63.512 Cerebral infarction due to unspecified occlusion or stenosis of left middle cerebral artery (principal); E87.1 Hypo-osmolality and hyponatremia; E11.40 Type 2 diabetes mellitus with diabetic neuropathy, unspecified; D64.9 Anemia, unspecified; E66.9 Obesity, unspecified; E78.5 Hyperlipidemia, unspecified; I10 Essential (primary) hypertension; F10.10 Alcohol abuse, uncomplicated; F17.210 Nicotine dependence, cigarettes, uncomplicated; F12.90 Cannabis use, unspecified, uncomplicated; Z68.30 Body mass index [BMI] 30.0-30.9, adult; Y90.9 Presence of alcohol in blood, level not specified; Z79.82 Long term (current) use of aspirin
CPT/HCPCS: 70450; 70496; 70498; 70551; 71045; 80048; 80053; 80061; 80076; 82077; 82607; 82728; 82746; 82962; 83036; 83540; 83550; 83735; 84100; 84145; 84443; 84484; 85025; 85610; 85730; 87633; 92610; 93005; 93306; 94640; 94668; 94762; 97161; 97162; 97166; 97802; 99285; 99406; Q9957; Q9967; A4216; C8929

== ENCOUNTER 2024-02-26 11:40 | Inpatient (IN) | payer MEDICARE, SELFPAY ==
[2024-02-26] VITALS (11 sets, daily range): BP systolic 112–157; BP diastolic 47–107; PULSE 70–80; RESP 16–19; TEMP 36.4–37; O2SAT 93–99; BMI 33.5; BMI 33.7; BMI 29.5
--- NOTE | 2024-02-26 11:56 | RAD_ITS ---
STUDY: X-RAY CHEST REASON FOR EXAM: Male, 68 years old. Neuro deficit, acute, stroke suspected TECHNIQUE: Single AP portable view of the chest. COMPARISON: Comparison is made with prior study of October 17, 2023. FINDINGS: EKG electrodes are seen. The lungs are clear and expanded. There is no demonstrated pleural abnormality. Normal size heart. Normal mediastinum and sina. Normal visualized pulmonary arteries. There is atherosclerotic calcification of the aortic arch with tortuosity. There are diffuse degenerative changes of the visualized thoracic spine. Normal visualized ribs, clavicles, and shoulders. There is no demonstrated abnormality of the visualized soft tissue structures of the upper abdomen. RAD/Chest 1 View IMPRESSION: No acute abnormality is seen. Electronically Signed: Doni Quiroga MD at 12:49 EST ,
--- NOTE | 2024-02-26 11:56 | EKG12_ITS ---
Test Reason : Blood Pressure : */* mmHG Vent. Rate : 72 BPM Atrial Rate : 72 BPM P-R Int : 178 ms QRS Dur : 98 ms QT Int : 416 ms P-R-T Axes : 84 -25 11 degrees QTcB Int : 455 ms Normal sinus rhythm Cannot rule out Anterior infarct , age undetermined Abnormal ECG Confirmed by JOSE F HALE, JAMAAL ([id number]), editor greeting card TORY MADDOX ([id number]) on 02/27/2024 8:15:13 AM Referred By: Confirmed By: JAMAAL KHOLER MD
--- NOTE | 2024-02-26 11:56 | CT_ITS ---
STUDY: CT HEAD STROKE PROTOCOL W/O CONTRAST INJECTION REASON FOR EXAM: Male, 68 years old. Neuro deficit, acute, stroke suspected RADIATION DOSAGE (If Supplied By Facility): CTDIvol = ( 47.06 ) mGy, DLP = ( 907.97 ) mGycm TECHNIQUE: Transaxial CT imaging of the brain was performed without administration of intravenous contrast material. Individualized dose optimization techniques were used for this CT. COMPARISON: Comparison is made with prior study of October 17, 2023. FINDINGS: Normal soft tissue structures. Normal calvarium. There is mild cerebral atrophy with widening of the extra-axial spaces and ventricular dilatation. The attenuation is seen in the posterior medial aspect of the left occipital lobe suggestive of a acute to subacute infarction. There are areas of decreased attenuation within the white matter tracts of the supratentorial brain, consistent with microvascular disease changes. Old infarct in the left occipital lobe. Normal basal ganglia and thalami. Normal brainstem. Stable encephalomalacia in the right cerebellar hemisphere. There is no intracranial hemorrhage. There are no findings of an acute ischemic infarction. Normal visualized paranasal sinuses. ASPECT score: 8 CT/STROKE Brain/Head without Cont IMPRESSION: Acute/subacute infarct involving the posterior medial right occipital lobe. 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 N.B. : The above Results were Read Back by Doni Quiroga MD to Nikolas Stauffer and understanding confirmed on 02/26/2024 12:11:48 (ET). Electronically Signed: Doni Quiroga MD at 12:15 EST ,
--- NOTE | 2024-02-26 11:56 | CT_ITS ---
STUDY: CTA HEAD AND NECK WITH CONTRAST REASON FOR EXAM: Male, 68 years old. Neuro deficit, acute, stroke suspected -- Left homonymous hemianopsia RADIATION DOSAGE (If Supplied By Facility): CTDIvol = ( 17.84 ) mGy, DLP = ( 976.17 ) mGycm TECHNIQUE: CT angiography was performed with a multi-detector CT scanner. Data acquisition was obtained from the skull base through the vertex following intravenous administration of IV 100mL [id number]-[id number]. MIP images were reconstructed from the axial data set. Post-processing of the angiographic images was performed, with multiplanar reformation and 3D reconstruction. Individualized dose optimization techniques were used for this CT. COMPARISON: Comparison is made with prior study dated October 17, 2023. FINDINGS: Normal bilateral petrous carotid arteries. There is calcified plaque formation of the right cavernous carotid artery, without a cross-sectional luminal stenosis. There is calcified plaque formation of the left cavernous carotid artery, without a cross-sectional luminal stenosis. Normal right A1 segments of the anterior cerebral artery. Normal left A1 segments of the anterior cerebral artery. Normal intact anterior communicating artery (ACOM). Normal bilateral A2 segments of the anterior cerebral arteries. Normal right M1 and M2 segments of the middle cerebral arteries, with a normal M1 bifurcation. Normal left M1 and M2 segments of the middle cerebral arteries, with a normal M1 bifurcation. Normal right posterior communicating artery (PCOM). Normal left posterior communicating artery (PCOM). Normal bilateral vertebral arteries. Normal basilar artery with a normal basilar bifurcation. The visualized bilateral superior cerebellar (SCA) arteries are normal. Normal bilateral P1, P2 and visualized P3 segments of the posterior cerebral arteries. There is no demonstrated aneurysm of the [place]. AORTIC ARCH: There is atherosclerotic calcific plaque formation of the aortic arch and great vessels arising from the aortic arch, without a hemodynamically significant stenosis. There is a normal origin of the brachiocephalic, left common carotid, and left subclavian arteries. Atherosclerotic calcific plaques at the origin of the left subclavian and brachiocephalic arteries. RIGHT CAROTID ARTERIES: There is atherosclerotic plaque formation of the common carotid artery, but without a hemodynamically significant stenosis. Normal right common carotid bulb. There is moderate atherosclerotic plaque formation of the origin of the right internal carotid artery with an estimated stenosis of 50-69% stenosis. Normal visualized cervical portion of the right internal carotid artery. Normal origin of the right external carotid artery (ECA). LEFT CAROTID ARTERIES: There is atherosclerotic plaque formation of the common carotid artery, but without a hemodynamically significant stenosis. Normal left common carotid bulb. There is extensive atherosclerotic plaque formation of the origin of the left internal carotid artery with an estimated stenosis of greater than 70%. Normal visualized cervical portion of the left internal carotid artery. Normal origin of the left external carotid artery (ECA). VERTEBRAL ARTERIES: Normal bilateral vertebral arteries. CT/STROKE CTA Head AND Neck W/Con IMPRESSION: Calcific plaques throughout the right and left common carotid arteries. Calcific plaques at the carotid bifurcations bilaterally. 50-69% stenosis on the right and greater than 70% stenosis on the left. N.B. : The above Results were Read Back by Doni Quiroga MD to Nikolas Stauffer MD, and understanding confirmed on 02/26/2024 12:20:46 (ET). Electronically Signed: Doni Quiroga MD at 12:22 EST ,
--- NOTE | 2024-02-26 11:57 | ED.VIS.STROK ---
HPI History of Present Illness Chief Complaint: Neuro S/Sx Detail of Chief Complaint: Lost left side of vision while watching TV last evening at 1999 Informant: patient and spouse/S.O. Onset/Context/Timing Onset: Yesterday (1999) and Days (Sunday ill with profuse nausea and vomiting. Vomited reportedly 30 times and had slight headache) Timing: Continuous (Patient has gotten worse.) Quality and Location: Positive for - (Loss of vision left side) Onset: February 241999 Current Severity: Moderate Maximum Severity: Moderate Worsened by: Nothing Relieved by: Nothing Associated Symptoms Associated Symptoms: Positive for Headache and Nausea Narrative Narrative: Patient is a 68-year-old male. He had a significant stroke September of this year. He initially informing that he was very sick on Sunday and vomited 30 times. He also had a slight headache at that time. Last evening February 241999 while watching TV the left side of the TV was not visualized. Reportedly his vision is worse since last evening. Since patient has a left homonymous hemianopsia and onset was less than 24 hours ago stroke team was initiated. Presently patient denies headache. He denies double vision. He denies avalos ears decreased hearing. No trouble speech or swallowing. He denies paresthesia, anesthesia or motor weakness upper or lower extremity. He denies cardiac or respiratory symptoms. His nausea and vomiting is resolved. He denies urologic symptoms. He does have history of type 2 diabetes, alcohol abuse, ischemic stroke involving the left MCA September 2023, pulmonary hypertension, COPD, bicuspid aortic valve and atherosclerotic disease of both right and left carotid arteries. Prior similar symptoms: No Recent Illness/Hospitalization: Yes [facility] Medical History Arteriosclerosis of both carotid arteries Arthritis Aortic valve, bicuspid Acute ischemic left MCA stroke Hypertension COPD (chronic obstructive pulmonary disease) Pulmonary hypertension Aortic stenosis Diabetes mellitus, type 2 History of alcohol abuse Cannabis use disorder HLD (hyperlipidemia) History of CVA (cerebrovascular accident) Home Medications ?Medication ?Instructions ?Recorded ?Last Taken ?Type amlodipine 5 mg tablet 5 mg PO DAILY 90 days #90 tabs 10/18/23 Unknown Rx aspirin 81 mg chewable tablet 81 mg PO BREAKFAST 90 days #90 tabs 10/18/23 Unknown Rx albuterol sulfate 2.5 mg/3 mL 2.5 mg inhalation Q6H 11/20/23 Unknown History (0.083 %) solution for nebulization atorvastatin 80 mg tablet 40 mg PO QHS 11/20/23 Unknown History clonidine HCl 0.2 mg tablet 0.2 mg PO BID 11/20/23 Unknown History metformin 500 mg tablet,extended 1,000 mg PO DAILY 11/20/23 Unknown History release 24 hr pregabalin 150 mg capsule 150 mg PO TID 11/20/23 Unknown History Allergy/AdvReac Type Severity Reaction Status Date / Time No Known Allergies Allergy Verified 10/17/23 19:37 Family History Mother Breast cancer Diabetes Father Heart disease Hypertension CAD (coronary artery disease) CVA (cerebral vascular accident) Myocardial infarction Surgical History History of tonsillectomy and adenoidectomy Social History household members: none housing: apartment number of children: 3 current occupational status: retired Smoking Status: Current every day smoker tobacco type: cigarettes quit status: not considering quitting alcohol intake: former year quit: 2022 details: Quit 08/2022, prior 12-15 beers daily. substance use type: marijuana ROS ROS ED Constitutional Constitutional ED: Denies chills, fever(s), subjective, sweats or weakness Eyes Eyes: Reports change in vision bilateral (Loss of vision left side consistent with a left homonymous hemianopsia); Denies blurry vision or diplopia ENT ENT ED: Denies ear pain, rhinorrhea or sore throat Cardiovascular Cardiovascular: Denies chest pain or palpitations Respiratory/Chest Respiratory/Chest: Denies cough, dyspnea or dyspnea on exertion Gastrointestinal Gastrointestinal: Reports nausea, vomiting and other Details: Nausea and vomiting occurred Sunday night. ; Denies abdominal pain, diarrhea or melena Genitourinary Genitourinary ED: Denies dysuria, hematuria or urinary frequency Musculoskeletal Musculoskeletal: Denies arthralgias, myalgias or neck pain Integumentary Denies rash Neurologic Neurologic: Reports headache(s) and weakness; Denies paresthesias Endocrine Endocrinology: Denies polydipsia, polyphagia or polyuria Hematologic/Lymphatic Hematologic/Lymphatic: Denies easy bleeding or easy bruising EXAM Physical Exam Const Vital Signs: 02/26/24 11:41 02/26/24 11:56 02/26/24 12:00 Temperature 97.6 F L 97.8 F Temperature Source Temporal Oral Pulse Rate 74 76 Respiratory Rate 19 H 16 Blood Pressure 157/107 H 146/54 H Blood Pressure Mean 123 84 Pulse Ox 99 98 Oxygen Delivery Method Room Air Room Air Room Air 02/26/24 12:23 Temperature 97.9 F Temperature Source Oral Pulse Rate 73 Respiratory Rate 18 Blood Pressure 112/72 Blood Pressure Mean 85 Pulse Ox 97 Oxygen Delivery Method Room Air Positive well nourished and well developed Constitutional Narrative: He appears in no obvious distress. Vital signs reveal elevated blood pressure 157/107. General Appearance ED: well developed HEENT Reports dry mucous membranes Negative for atraumatic Mouth ED: Yes dry mucous membranes Mouth: dry mucous membranes Eyes PERRL and EOMs intact bilaterally Eyes Narrative: There is no nystagmus. General Eye ED: Negative for pale conjunctiva or scleral icterus Neck no lymphadenopathy and supple Chest Wall inspection of chest normal and palpation of chest normal Resp normal respiratory effort and clear to auscultation bilaterally Cardio no murmurs Rhythm: regular rhythm Heart Sounds: S1 normal and S2 normal GI normal to inspection, nondistended, normoactive bowel sounds, soft to palpation, non-tender, non-distended and no masses Extremity normal to inspection General Extremety ED: Negative for deformity or edema General Extremity: Negative for deformity or edema Neuro oriented x3, CN's II-XII intact bilaterally and no sensory deficits noted [place] Coma Scale: document GCS findings Spontaneous Obeys Commands Oriented 15 Sensorium / Orientation: alert Speech: speech normal Psych mental status grossly normal Skin no wounds General Skin Exam: Negative for jaundice Lesions: no lesions Rashes: no rashes NIHSS NIHSS Initial: 1a Level of Consciousness: 0 1b LOC Questions (Score 2 if aphasic/stupor): 0 1c LOC Commands (Only score 1st attempt): 0 2 Best Gaze (If aphasic, use reflexive mvmts.): 0 3 Visual: 2 4 Facial Palsy: 0 5 Motor Arm Right (UN = amputation/fusion): 0 5 Motor Arm Left: 0 6 Motor Leg Right: 0 6 Motor Leg Left: 0 7 Limb ataxia (Only + if out of proportion): 0 8 Sensory (Aphasia/stupor=0 or 1, coma=2): 0 9 Best Language: 0 10 Dysarthria (mute, coma=2, intubated=UN): 0 11 Extinction and Inattention (only scored if +): 0 Total Score: 2 MDM MDM MDM Narrative Medical decision making narrative: In my opinion the nausea vomiting that occurred on Sunday is not related to his symptoms that started last evening. Will obtain BMP to assess electrolytes and renal function in light of him reporting vomiting 30 times on Sunday. He has had poor intake since Sunday. Stroke order set was initiated and stroke team was called. Patient is within the window for possible retrieval he is not within the window for TNK. History & Record Review Discussion w/independent historian: Patient Lab Data Attestation: I reviewed the patient's lab results. Lab results narrative: Blood sugar was 146. This would not explain his symptoms. Juanis panel is remarkable for a BUN and creatinine of 45 and 3.94. This represents acute kidney failure/injury. His last creatinine was 0.97. He also has mild hypokalemia and has hyponatremia. Glucose is 134 would not explain his hyponatremia. He does have a history of alcohol abuse and may be the cause of his hyponatremia. Labs: Laboratory Results - last 24 hr 02/26/24 02/26/24 11:55 12:03 WBC 17.6 H RBC 4.84 Hgb 14.5 Hct 41.5 MCV 85.7 MCH 30.0 MCHC 34.9 RDW Std Deviation 39.8 RDW Coeff of Katherine 12.8 Plt Count 544 H MPV 8.8 Immature Gran % (Auto) 0.500 Neut % (Auto) 54.4 Lymph % (Auto) 29.7 [place] % (Auto) 8.8 Eos % (Auto) 6.0 H Baso % (Auto) 0.6 Absolute Neuts (auto) 9.6 H Absolute Lymphs (auto) 5.23 H Nucleated RBC % 0 PT 12.8 INR 1.0 APTT 32.9 Sodium 126 L Potassium 3.3 L Chloride 89 L Carbon Dioxide 24.0 Anion Gap 14 BUN 45 H Creatinine 3.94 H Estim Creat Clear Calc 20.25 Est GFR (MDRD) Af Amer 20 L Est GFR (MDRD) Non-Af 16 L BUN/Creatinine Ratio 11.4 Glucose 134 H Calcium 8.7 Troponin I High Sens 26 POC Glucose 147 H Radiography Chest X-Ray - ED: 1 View, Read by ED Physician ([id number]), Unchanged, Heart, Mediastinum, Bony Structures, No Acute Disease and Chronic Changes Diagnostic Testing: Clinical Impression(s) from Imaging Studies Brain CT 02/26/24 11:56 IMPRESSION: Acute/subacute infarct involving the posterior medial right occipital lobe. 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 N.B. : The above Results were Read Back by Doni Quiroga MD to Nikolas Stauffer and understanding confirmed on 02/26/2024 12:11:48 (ET). Electronically Signed: Doni Quiroga MD at 12:15 EST , ADDENDUM: 02/26/24 1221 IMPRESSION: Acute/subacute infarct involving the posterior medial right occipital lobe. 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 N.B. : The above Results were Read Back by Doni Quiroga MD to Nikolas Stauffer and understanding confirmed on 02/26/2024 12:11:48 (ET). Electronically Signed: Doni Quiroga MD at 12:15 EST , Head/Neck CTA 02/26/24 11:56 IMPRESSION: Calcific plaques throughout the right and left common carotid arteries. Calcific plaques at the carotid bifurcations bilaterally. 50-69% stenosis on the right and greater than 70% stenosis on the left. N.B. : The above Results were Read Back by Doni Quiroga MD to Nikolas Stauffer MD, and understanding confirmed on 02/26/2024 12:20:46 (ET). Electronically Signed: Doni Quiroga MD at 12:22 EST , ADDENDUM: 02/26/24 1229 IMPRESSION: Calcific plaques throughout the right and left common carotid arteries. Calcific plaques at the carotid bifurcations bilaterally. 50-69% stenosis on the right and greater than 70% stenosis on the left. N.B. : The above Results were Read Back by Doni Quiroga MD to Nikolas Stauffer MD, and understanding confirmed on 02/26/2024 12:20:46 (ET). Electronically Signed: Doni Quiroga MD at 12:22 EST , Radiology report was reviewed. Patient has evidence of an old cerebellar infarct now to subacute. He also has calcific plaques throughout the right and left common carotid artery. There is 50 to 69% stenosis on the right at the bifurcation and greater than 70% on the left. Management Discussion w/another healthcare provider: Hospitalist, Busboy (Spoke with the neurologist at [facility], Dr. Carranza. Patient not a candidate for TNK. There is no obvious lesions for retrieval. Patient will be admitted for acute/subacute stroke and have physical therapy occupational therapy see him) and Radiologist (Spoke with radiologist. Patient has subacute acute stroke involving the cerebellum and occiput. This would explain his nausea and vomiting on Sunday and his visual disturbances started last evening.) Stroke Documentation Questions Stroke Team Activated: Yes Reviewed Inclusion/Exclusion criteria: No (Patient is outside the window.) IV Thrombolytic Administered: No (Patient is outside the window.) No contraindications from thrombolytic administration: No Not given: Patient refusal: No (Not discussed since patient is outside the window.) Critical Care Time Critical Care Time: Yes Critical care time (excluding procedures): 30-74 minutes (31), Including time spent: (History, physical, documentation, review of prior records, independent rotation of laboratory studies and imaging), Discussing w/Patient &/or Family/Construction Accountant, Discussing w/Consultants (Hospitalist, neurologist, radiologist) and Arranging Admission or Transfer Discharge Plan Dx/Rx/DC Orders Clinical Impression: Left homonymous hemianopsia due to recent cerebral infarction, Pulmonary hypertension, HLD (hyperlipidemia), History of alcohol abuse, Diabetes mellitus, type 2, Cerebral infarction due to unspecified occlusion or stenosis of right cerebellar artery, COPD (chronic obstructive pulmonary disease), Acute hyponatremia, Acute renal failure, Hypokalemia Disposition Disposition: Acute Care [facility]
--- NOTE | 2024-02-26 12:07 | NURSING ---
STROKE ALERT [id number]
[2024-02-26 12:15] LABS: Bedside Glucose 147 mg/dL (74-106)
[2024-02-26 12:17] LABS: Absolute Lymphocyte Count 5.23 X10^3/uL (0.83-4.51); Absolute Neutrophil Count 9.6 X10^3/uL (2.0-7.7); Basophil% 0.6 % (0-1); Eosinophil# 1.05 X10^3/uL; Hematocrit 41.5 % (40-54); Hemoglobin 14.5 g/dL (13.0-16.5); Lymphocyte # 5.23 X10^3/ul (0.83-4.51); Lymphocyte % 29.7 % (19-41); Mean Corp Hgb Conc 34.9 g/dL (32-36); Mean Corpuscular Volume 85.7 fL (80-94); Mean Platelet Vol. 8.8 fl (6.2-12.0); Monocyte# 1.55 X10^3/uL; Monocyte% 8.8 % (0-10); NRBC Flagged by Analyzer 0 % (0-5); Neutrophil # 9.58 X10^3/uL (2.7-7.7); Neutrophil % 54.4 % (47-70); POSITIVE DIFFERENTIAL YES; Platelet Count 544 K/mm3 (150-450); RBC Distribution Width CV 12.8 % (11.6-14.6); RBC Distribution Width SD 39.8 fl (35.1-43.9); Red Blood Count 4.84 M/mm3 (4.6-6.2); White Blood Count 17.6 K/mm3 (4.4-11.0)
--- NOTE | 2024-02-26 12:18 | CM.ED ---
Social work Reason for referral: stroke alert Patient had a stroke alert called, prompting social work referral. This SW entered patient's room to find patient's daughter, Ysabel, present. Patient was receiving imaging and was not in the room. Ysabel reported being nervous, but reported being fine otherwise. Ysabel reported that patient had a large stroke in September/October 2023 and patient had reported feeling off over the weekend. Ysabel stated that patient reportedly told Ysabel this morning that he was having trouble seeing things, prompting patient being brought into the ED. Ysabel reported that her sister/patient's other daughter, Tamir, used to work at [employer] as a nurse. Ysabel stated she had two children, 28 and 23, and was reportedly struggling some with her own anxiety related to her empty nest. [employer] Real Estate Executive Assistant Foster entered room to provide support as needed as well. Patient reentered room and patient seemed to be alert and oriented. Ysabel reported no further needs at this time; SW available should other needs be identified. Eileen Santiago, YEAST CULTURE OPERATOR, PATHOLOGY TECHNICIAN
[2024-02-26 12:19] LABS: Differential Indicated SCAN CRITERIA MET
[2024-02-26 12:28] LABS: Prothrombin Time (Protime)PT. 12.8 SECONDS (11.7-14.9)
[2024-02-26 12:29] LABS: Partial Thromboplast Time 32.9 Seconds (24.1-36.2)
[2024-02-26 12:32] LABS: Anion Gap 14 (5-15); BUN 45 mg/dL (7-18); BUN/Creat Ratio 11.4 RATIO (10-20); Calcium,Total 8.7 mg/dL (8.5-10.1); Chloride 89 mmol/L (98-107); Creatinine, Serum 3.94 mg/dL (0.70-1.30); EST Glomerular Filtration Rate 16 mL/min (>60); Est Glom Filt Rate - Afr Amer 20 mL/min (>60); Estimated Creatinine Clearance 20.25 ml/min; Glucose 134 mg/dL (74-106); Potassium 3.3 mmol/L (3.5-5.1); Sodium Level 126 mmol/L (136-145); Troponin-I HS 26 pg/mL (3.0-78.0)
--- NOTE | 2024-02-26 12:45 | CHAPLAIN ---
Type of Pastoral Visit ___ Initial Visit ___ Follow-up Visit ___ On-call Visit ___ General Patient Visit ___ Spiritual Assessment ___ Family Conference ___ Bereavement _x__ Rapid Response ___ Code Blue ___ Other (describe below) Pastoral Care Referral From ___ Patient ___ Family ___ Nurse ___ Physician ___ Precision Assembler Bench ___ Bellows Tester _x__ Other (describe below) Sacrament/Intervention _x__ Active listening ___ Anointing ___ Church ___ Bereavement ___ Communion ___ Harleen exploration ___ ___ Life review ___ Prayer ___ Reconciliation ___ Sacrament of Sick _x__ Supportive presence ___ Wedding ___ Other (describe below) Pastoral Comments responded to stroke alert and found the daughter in the patient's room while the patient was in CT; SW is also present at this time; offered support and listening to the daughter; daughter admits to some anxiety but also that she is doing fine and has no needs right now;
--- NOTE | 2024-02-26 13:00 | PCM.HP.STD ---
HPI - General General Date of Admission: 02/26/24 Date of Service: 02/26/24 Chief Complaint: Left visual field deficit HPI Narrative KIM SUN, is a 68-year-old male history of left MCA stroke in September of this year, diabetes, COPD, tobacco use, hypertension who presented to [facility] ED 02/26/2024 with loss of left-sided vision while watching TV last evening at 10 PM. Additionally was ill on Sunday with profuse nausea and vomiting 30 times. In the ED patient found to have acute infarct involving posterior medial right occipital lobe patient also had significant VERONICA with creatinine up to 3.94. Hospitalist contacted for admission for further stroke workup and VERONICA. Patient evaluated bedside with daughter present. Patient reports that all weekend he had significant nausea and vomiting as well as some left-sided back pain and felt like he was dying , no abdominal pain, no GI changes, no urinary complaints but felt very very ill however it is since resolved and is no longer feeling nauseous but has had poor p.o. over the past couple of days in addition and feels generally unwell. But primarily brought him in is a left-sided visual field defects that he noticed last night at 10 PM when he could not see the left side of the TV and he reports this has persisted. Intermittently still has some left-sided back pain but this is not a main complaint. Not presently nauseous, was able to eat earlier without significant difficulty. No chest pain or shortness of breath, no headache, no numbness, weakness, tingling, problems with speech or other new or acute complaints. FORMERLY [facility], [facility]–1983 Medical History Arteriosclerosis of both carotid arteries Arthritis Aortic valve, bicuspid Acute ischemic left MCA stroke Hypertension COPD (chronic obstructive pulmonary disease) Pulmonary hypertension Aortic stenosis Diabetes mellitus, type 2 History of alcohol abuse Cannabis use disorder HLD (hyperlipidemia) History of CVA (cerebrovascular accident) Home Medications ?Medication ?Instructions ?Recorded ?Last Taken ?Type amlodipine 5 mg tablet 5 mg PO DAILY 90 days #90 tabs 10/18/23 Unknown Rx aspirin 81 mg chewable tablet 81 mg PO BREAKFAST 90 days #90 tabs 10/18/23 Unknown Rx albuterol sulfate 2.5 mg/3 mL 2.5 mg inhalation Q6H 11/20/23 Unknown History (0.083 %) solution for nebulization atorvastatin 80 mg tablet 40 mg PO QHS 11/20/23 Unknown History clonidine HCl 0.2 mg tablet 0.2 mg PO BID 11/20/23 Unknown History metformin 500 mg tablet,extended 1,000 mg PO DAILY 11/20/23 Unknown History release 24 hr pregabalin 150 mg capsule 150 mg PO TID 11/20/23 Unknown History Allergy/AdvReac Type Severity Reaction Status Date / Time No Known Allergies Allergy Verified 10/17/23 19:37 Family History Mother Breast cancer Diabetes Father Heart disease Hypertension CAD (coronary artery disease) CVA (cerebral vascular accident) Myocardial infarction Surgical History History of tonsillectomy and adenoidectomy Social History household members: none housing: apartment number of children: 3 current occupational status: retired Smoking Status: Current every day smoker tobacco type: cigarettes quit status: not considering quitting alcohol intake: former year quit: 2022 details: Quit 08/2022, prior 12-15 beers daily. substance use type: marijuana ROS ROS Narrative General: Feels generally unwell HENT: Denies headache, denies stuffy nose, denies sore throat EYES: Left-sided visual field deficit Resp: Denies cough, denies shortness of breath Cardiac: Denies chest pain GI: Denies abdominal pain, denies changes in bowel, nausea and vomiting resolved : Denies changes in urination Extremity: Denies swelling MSK: Generally weak Neuro: Denies any numbness/tingling Heme: Denies any bleeding or bruising Skin: Denies rashes Psychiatric: Patient is unhappy that he has to be admitted to the hospital Vital Signs Vital Signs Vital Signs: 02/26/24 11:41 02/26/24 11:56 02/26/24 12:00 Temperature 97.6 F L 97.8 F Temperature Source Temporal Oral Pulse Rate 74 76 Respiratory Rate 19 H 16 Blood Pressure 157/107 H 146/54 H Blood Pressure Mean 123 84 Pulse Ox 99 98 Oxygen Delivery Method Room Air Room Air Room Air 02/26/24 12:23 02/26/24 12:36 02/26/24 12:40 Temperature 97.9 F 97.9 F 98.6 F Temperature Source Oral Temporal Pulse Rate 73 76 79 Respiratory Rate 18 18 16 Blood Pressure 112/72 116/64 132/47 H Blood Pressure Mean 85 81 75 Pulse Ox 97 98 98 Oxygen Delivery Method Room Air Room Air Weight Weight: 97.6 kg Body Mass Index (BMI) 33.7 Physical Exam Narrative General: Alert, oriented, no apparent distress HEENT: Atraumatic, normocephalic Eyes: Anicteric, normal conjunctiva, left sided visual field cut, pupils equal Neck: Supple Respiratory: Clear to auscultation bilaterally, normal respiratory effort Cardiovascular: Regular rate and rhythm GI: Soft, nontender, nondistended Extremities: No edema Musculoskeletal: Strength 5 out of 5 in right upper extremity, 5 out of 5 left upper extremity, 5 out of 5 right lower extremity, 5 out of 5 left lower extremity Neuro: No overt focal neurological deficits aside from visual field deficit, cranial nerves II through XII intact, [id number] without significant difficulty bilaterally Skin: No rashes appreciated Psych: Cooperative Results Lab / Micro Data 02/26/24 12:03 02/26/24 12:03 Labs: Laboratory Results - last 24 hr 02/26/24 11:55: POC Glucose 147 H 02/26/24 12:03: WBC 17.6 H, RBC 4.84, Hgb 14.5, Hct 41.5, MCV 85.7, MCH 30.0, MCHC 34.9, RDW Std Deviation 39.8, RDW Coeff of Katherine 12.8, Plt Count 544 H, MPV 8.8, Immature Gran % (Auto) 0.500, Neut % (Auto) 54.4, Lymph % (Auto) 29.7, Kingsbury % (Auto) 8.8, Eos % (Auto) 6.0 H, Baso % (Auto) 0.6, Absolute Neuts (auto) 9.6 H, Absolute Lymphs (auto) 5.23 H, Nucleated RBC % 0, Differential Comment COMMENT, Diff Path Review August, PT 12.8, INR 1.0, APTT 32.9, Sodium 126 L, Potassium 3.3 L, Chloride 89 L, Carbon Dioxide 24.0, Anion Gap 14, BUN 45 H, Creatinine 3.94 H, Estim Creat Clear Calc 20.25, Est GFR (MDRD) Af Amer 20 L, Est GFR (MDRD) Non-Af 16 L, BUN/Creatinine Ratio 11.4, Glucose 134 H, Calcium 8.7, Troponin I High Sens 26 Imaging Radiology Impression Brain CT 02/26/24 11:56 IMPRESSION: Acute/subacute infarct involving the posterior medial right occipital lobe. 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 N.B. : The above Results were Read Back by Doni Quiroga MD to Nikolasjorje Stauffer and understanding confirmed on 02/26/2024 12:11:48 (ET). Electronically Signed: Doni Quiroga MD at 12:15 EST , ADDENDUM: 02/26/24 1221 IMPRESSION: Acute/subacute infarct involving the posterior medial right occipital lobe. 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 N.B. : The above Results were Read Back by Doni Quiroga MD to [facility] and understanding confirmed on 02/26/2024 12:11:48 (ET). Electronically Signed: Doni Quiroga MD at 12:15 EST , Chest X-Ray 02/26/24 11:56 IMPRESSION: No acute abnormality is seen. Electronically Signed: Doni Quiroga MD at 12:49 EST , Head/Neck CTA 02/26/24 11:56 IMPRESSION: Calcific plaques throughout the right and left common carotid arteries. Calcific plaques at the carotid bifurcations bilaterally. 50-69% stenosis on the right and greater than 70% stenosis on the left. N.B. : The above Results were Read Back by Doni Quiroga MD to Nikolas Stauffer MD, and understanding confirmed on 02/26/2024 12:20:46 (ET). Electronically Signed: Doni Quiroga MD at 12:22 EST , ADDENDUM: 02/26/24 1229 IMPRESSION: Calcific plaques throughout the right and left common carotid arteries. Calcific plaques at the carotid bifurcations bilaterally. 50-69% stenosis on the right and greater than 70% stenosis on the left. N.B. : The above Results were Read Back by Doni Quiroga MD to Nikolas Stauffer MD, and understanding confirmed on 02/26/2024 12:20:46 (ET). Electronically Signed: Doni Quiroga MD at 12:22 EST , Assessment & Plan Assessment/Plan (1) Acute renal failure: PLAN: Plan # Left visual field deficit with acute infarct involving posterior medial right occipital lobe -Admit to tele -CT head w/ acute/subacute infarct involving posterior medial right occipital lobe and an old infarction posterior left occipital lobe and right cerebellar hemisphere -CTA head and neck with greater than 70% stenosis left carotid and between 50 to 69% on the right -MRI ordered -NIH q4hr -asa, Plavix, statin -Echo w/ bubble study done 10/18/2023 and was negative for PFO/ASD so this does not need to be repeated -PT/OT/Speech eval -Teleneuro consult ordered -Hold BP medications to allow for permissive hypertension for 24 hours unless SBP greater than 220 or DBP greater than 120 or until stroke is ruled out # VERONICA -Patient with vomiting 30 times on Sunday and had nausea and vomiting all weekend and has BUN of 45 and creatinine 3.94 with a normal baseline -Will give IV fluids, suspect prerenal, if not improving will obtain further workup w/ urine lytes # Nausea and vomiting -Possibly gastroenteritis, patient's symptoms have resolved so do not necessarily feel like any further abdominal imaging is warranted unless symptoms recur, patient volume depleted and with left visual field deficit but otherwise has no acute complaints # Hyponatremia -Patient has chronic hyponatremia, today slightly lower than it was October 17, suspect that this decrease is due to dehydration -Repeat in the a.m. # Leukocytosis -Possibly reactive this patient has no focal complaints at this time but given back pain and kidney function will obtain kidney and bladder ultrasound and UA #Type 2 diabetes mellitus -Glucose checks and sliding scale insulin #Hypertension -Holding home antihypertensives to allow permissive hypertension #Hypokalemia -Replace -Repeat in the AM #Tobacco use -Advise cessation -Nicotine replacement available if desired #DVT ppx: SCDs Karmen Chew MD Charges/Coding Visit Charges Inpatient E&M: 98161 Init Hosp L2
[2024-02-26] MEDS: 0.9% Normal Saline (1000mL) 1,000 ML 250 ML IV (13:02)
--- NOTE | 2024-02-26 13:15 | MRI_ITS ---
We are attempting to reach an attending provider to discuss findings. An addendum with communication details will be sent when the communication is complete. STUDY: MRI BRAIN WITHOUT CONTRAST REASON FOR EXAM: Male, 68 years old. acute cva TECHNIQUE: Standardized multiplanar fat and water weighted pulse sequences were obtained. COMPARISON: CT of the brain February 26, 2024 MRI of the brain October 18, 2023 FINDINGS: Mild atrophy and moderate periventricular white matter ischemic changes.. Increased signal intensity within the right occipital lobe with restricted diffusion consistent with acute ischemic changes. There are also foci of restricted diffusion in the left frontal parietal region, right parietal lobe, right frontal lobe, and left cerebellar hemisphere. There are also old left occipital and bilateral cerebellar infarcts Normal bilateral basal ganglia. Normal thalami. There is no extra-axial fluid accumulation. Normal flow voids within the major intracranial circulation suggesting patency by spin echo criteria. Normal sella turcica, pituitary gland, infundibular stalk, optic chiasm and hypothalamus. Normal tectal plate and pineal gland. Normal midbrain, victoria and medulla. . Normal basal cisterns. Normal bilateral temporal bones. Normal bilateral internal auditory canals. Postsurgical changes of the orbits. Normal visualized paranasal sinuses. Normal calvarium and skull base. Normal visualized soft tissue structures. Normal visualized upper cervical spine. MRI/Brain without Contrast IMPRESSION: Moderate periventricular white matter ischemic changes Acute foci of ischemia within the right occipital lobe, left frontal parietal region, and left cerebellar hemispheres ingesting embolic disease. Clinical correlation recommended. Electronically Signed: Jhon Lagos MD at 16:41 EST ,
--- NOTE | 2024-02-26 13:25 | US_ITS ---
STUDY: RENAL ULTRASOUND - COMPLETE REASON FOR EXAM: Male, 68 years old. sky TECHNIQUE: Ultrasound evaluation of the kidneys was performed with real-time and static sebastian-scale imaging. COMPARISON: None. FINDINGS: RIGHT KIDNEY: Normal location of the right kidney, which is normal in size. The right kidney measures 13 cm x 4.7 cm x 4.8 cm. There is a normal cortex of the right kidney. The renal cortex measures 1.4 cm. There is no right renal mass or cyst. There are no right renal calculi. There is no right hydronephrosis. DISTAL RIGHT URETER: There is non-visualization of the distal right ureter. There is no demonstrated right ureterovesical junction calculus. There is a visualized right ureteral jet. LEFT KIDNEY: Normal location of the left kidney, which is normal in size. The left kidney measures 12.1 cm x 4.5 cm x 5.2 cm. There is a normal cortex of the left kidney. The renal cortex measures 1.3 cm. There is no left renal mass or cyst. There are no left renal calculi. There is no left hydronephrosis. DISTAL LEFT URETER: There is non-visualization of the distal left ureter. There is no demonstrated left ureterovesical junction calculus. There is a visualized left ureteral jet. BLADDER: The distended urinary bladder has a volume of 350 ml. There is a normal wall thickness of the distended urinary bladder. There is no demonstrated mass within the urinary bladder. There are no demonstrated bladder calculi. US/Kidney and Bladder IMPRESSION: Normal ultrasound of the kidneys and urinary bladder. Electronically Signed: Doni Quiroga MD at 14:13 EST ,
[2024-02-26] MEDS: Aspirin 325 MG Tablet PO (14:40)
[2024-02-26] MEDS: Potassium Chloride Oral Tablet 20 MEQ PO (14:41)
--- NOTE | 2024-02-26 16:51 | ECHOL_ITS ---
Reason For Study: TIA/CVA Procedure This was a limited 2D transthoracic echocardiogram. Contrast injection was performed. The study was technically difficult. Exam performed portable in patient room. Left Ventricle Normal LV size. Left ventricular systolic function is normal. The left ventricular ejection fraction is 60 %. No regional wall motion abnormalities noted. Right Ventricle Normal RV size. Normal systolic function. Atria Normal left atrium. Normal right atrium. Mitral Valve Normal mitral valve. Tricuspid Valve Normal tricuspid valve. Aortic Valve Trisinus/trileaflet aortic valve. Mild focal aortic valve calcification. Pulmonic Valve Normal pulmonic valve. Great Vessels Normal aortic root. The pulmonary artery is normal size. Inferior vena cava collapse with respiration. Pericardium/Pleural No pericardial effusion. Medication Diluted definity 1.5ml given slow IV push to enhance endocardial definition. MMode/2D Measurements & Calculations LVIDd: 4.2 cm IVSd: 1.2 cm LVOT diam: 2.3 cm LVIDs: 2.6 cm LVPWd: 1.1 cm RVDd: 3.5 cm FS: 38.6 % LVOT area: 4.1 cm2 LAV(MOD-bp): 51.0 ml LVAd ap4: 36.8 cm2 LVAd ap2: 36.4 cm2 LAV(MOD-bp) Indexed: 25.9 ml/m2 LVLd ap4: 9.4 cm LVLd ap2: 9.1 cm LAV(MOD-sp2): 63.1 ml EDV(MOD-sp4): 116.4 ml EDV(MOD-sp2): 118.2 ml LAV(MOD-sp4): 42.0 ml EDV(sp4-el): 122.1 ml EDV(sp2-el): 123.7 ml LVAs ap4: 19.7 cm2 LVAs ap2: 19.4 cm2 LVLs ap4: 7.8 cm LVLs ap2: 8.0 cm ESV(MOD-sp4): 39.7 ml ESV(MOD-sp2): 40.4 ml ESV(sp4-el): 41.8 ml ESV(sp2-el): 39.9 ml EF(MOD-sp4): 65.9 % EF(MOD-sp2): 65.8 % EF(sp4-el): 65.7 % SV(MOD-sp4): 76.7 ml SV(MOD-sp2): 77.8 ml SV(sp4-el): 80.3 ml SI(MOD-sp4): 38.9 ml/m2 SI(MOD-sp2): 39.5 ml/m2 Ao sinus diam: 3.[address] Junction: 2.3 cm LA A4 area: 15.9 cm2 LA dimension(2D): 3.5 cm RA A4 area: 13.8 cm2 ECHO/Echo Limited w/Contrast Interpretation Summary Normal LV size. Left ventricular systolic function is normal. The left ventricular ejection fraction is 60 %. Mild focal aortic valve calcification. Contrast injection was performed. Ordering Physician: Karmen Chew Performed By: Karmen Hess RDCS
[2024-02-26] MEDS: 0.9% Saline Lock 10 ML Syringe IV (16:54)
[2024-02-26 17:13] LABS: Bedside Glucose 169 mg/dL (74-106)
[2024-02-26] MEDS: 0.9% Normal Saline (1000mL) 1,000 ML 100 ML IV (18:32)
--- OUTSIDE RECORDS SUMMARY | 2024-02-26 21:07 | XMS RPT_ITS | CCD ---
Author Organization [facility] Care Team Providers Care Accredited Farm Manager Name Role Phone DAVID ARITA Attending Unavailable JUAN J, DAVID Primary Care Unavailable DAVID ARITA Admitting Unavailable DAVID ARITA Attending Unavailable JUAN J, DAVID Primary Care Unavailable JUAN J, DAVID Admitting Unavailable DAVID ARITA Primary Care Unavailable Problems Problem Classification Problem Date Documented Da te Episodic/Chronic Diabetes mellitus without complication (1 source) Prediabetes; Translations: [Prediabetes] Onset: 03-21-2023 Episodic Disorders of lipid metabolism (1 source) Hyperlipidemia, unspecified; Translations: [Hyperlipidemia, unspecified] Onset: 03-21-2023 Chronic Essential hypertension (3 sources) Essential (primary) hypertension; Translations: [Essential (primary) hypertension] Onset: 09-16-2022 Chronic Other screening for suspected conditions (not mental disorders or infectious disease) (1 source) Encounter for screening for malignant neoplasm of prostate; Translations: [Encounter for screening for malignant neoplasm of prostate] Onset: 03-21-2023 Episodic Results Test Name Value Interpretation Reference Range Facil ity HGB A1C [CCL]on 03-23-2023 Glucose [Mass/Vol] 143 mg/dL Normal [facility] Comment on above: Result Comment: eAG: (Estimated average glucose) is a calculated value from HgbA1c and is hotel services sales representative of the average blood glucose level in the last 2-3 month period. [facility] [address] [place] [address] Mitch Santos III, M.D. [id number] Performed By: #### 2 27149 #### [facility],[address] [facility] [address] HbA1c (Bld) [Mass fraction] 6.6 % High 4.3-5.6 [facility] Comment on above: Result Comment: Amer ican Diabetes Association guidelines indicate that patients with HgbA1c in the range 5.7-6.4% are at increased risk for development of diabetes, and intervention by lifestyle modification may be beneficial. HgbA1c greater or equal to 6.5% is considered diagnostic of diabetes. Performed By: #### 2 10408 #### [place] [address] CBC (NO DIFF)on 03-21-2023 CBC panel Auto (Bld) Normal [facility] Comment on above: Result Comment: CBC( WITHOUT DIFFERENTIAL) Performed By: #### 2 34694 #### [place] [address] Erythrocyte distribution width (RBC) [Ratio] 13.3 % Normal 12.0 - 15.6 [facility] Comment on above: Performed By: #### 2 48903 #### [place] [address] Hematocrit (Bld) [Volume fraction] 42.4 % Normal 40.0 - 52.0 [facility] Comment on above: Performed By: #### 2 79800 #### [place] [id number] Hemoglobin (Bld) [Mass/Vol] 14.3 g/dL Normal 13.0 - 17.5 [facility] Comment on above: Performed By: #### 2 86491 #### [address] [address] MCH (RBC) [Entitic mass] 31 pg Normal 27 - 33 [facility] Comment on above: Performed By: #### 2 30606 #### [address] [address] MCHC 34 X10 3 Normal 32 - 36 [facility] Comment on above: Performed By: #### 2 96654 #### [address] [address] MCV (RBC) [Entitic vol] 91 fL Normal 81 - 98 [facility] Comment on above: Performed By: #### 2 20820 #### [facility],[address] [place] [address] 16792 PLATELET 514 x10EE3/UL High 150 - 450 [facility] Comment on above: Performed By: #### 2 06344 #### [facility],[address] [place] [address] 76565 Platelet mean volume (Bld) [Entitic vol] 7.6 fL Normal 6.4 - 10.5 [facility] Comment on above: Result Comment: {CB] Performed By: #### 2 32565 #### [facility],[address] [place] [address] 32828 RBC 4.66 x 10EE6/UL Normal 4.50 - 6.00 [facility] Comment on above: Performed By: #### 2 97598 #### [facility],[address] [place] [address] 95209 WBC 13.0 x 10EE3/UL High 4.5 - 10.8 [facility] Comment on above: Performed By: #### 2 35167 #### [facility],[address] [place] [address] 83628 CMP with eGFRon 03-21-2023 AGE 67 years Normal [facility] Comment on above: Performed By: #### 2 49366 #### [facility],[address] [place] [address] 72207 Albumin [Mass/Vol] 4.3 g/dL Normal 3.4 - 5.0 [facility] Comment on above: Performed By: #### 2 86416 #### [facility],[address] [place] [address] 37803 Albumin/Globulin [Mass ratio] 1.1 {ratio} Normal 0.9 - 1.6 [facility] Comment on above: Performed By: #### 2 59422 #### [facility],[address] [place] [address] 63532 ALK PHOS 106 U/L Normal 46 - 116 [facility] Comment on above: Performed By: #### 2 39859 #### [facility],[address] [place] [address] 16344 ALT [Catalytic activity/Vol] 29 U/L Normal 16 - 63 [facility] Comment on above: Performed By: #### 2 52231 #### [facility],[address] [place] [address] 29063 Anion gap [Moles/Vol] 14 mmol/L Normal 10 - 20 [facility] Comment on above: Performed By: #### 2 10190 #### [facility],[address] [place] [address] 65661 AST [Catalytic activity/Vol] 17 U/L Normal 15 - 37 [facility] Comment on above: Performed By: #### 2 21133 #### [facility],[address] [place] [address] 53005 B/C RATIO 14 ratio Normal 0 - 30 [facility] Comment on above: Performed By: #### 2 06536 #### [facility],[address] [place] [address] 34820 Bilirubin [Mass/Vol] 0.5 mg/dL Normal 0.2 - 1.0 [facility] Comment on above: Performed By: #### 2 66516 #### [facility],[address] [place] [address] 44982 Calcium [Mass/Vol] 9.6 mg/dL Normal 8.5 - 10.1 [facility] Comment on above: Performed By: #### 2 17745 #### [facility],[address] [place] [address] 74506 Chloride [Moles/Vol] 94 mmol/L Low 98 - 107 [facility] Comment on above: Performed By: #### 2 84274 #### [facility],[address] [place] [address] 81523 CMP with eGFR Normal [facility] Comment on above: Result Comment: COMP REHENSIVE METABOLIC PANEL Performed By: #### 2 92038 #### [facility],[address] [place] [address] 84956 CO2 [Moles/Vol] 28.1 mmol/L Normal 21.0 - 32.0 [facility] Comment on above: Performed By: #### 2 87916 #### [facility],[address] [place] [address] 21012 Creatinine [Mass/Vol] 0.84 mg/dL Normal 0.70 - 1.30 [facility] Comment on above: Performed By: #### 2 36897 #### [facility],[address] [place] [address] 68749 GFR/1.73 sq M.predicted among non-blacks MDRD (S/P/Bld) [Vol rate/Area] mL/min/{1.73_m2} Normal 60 - 999 [facility] Comment on above: Performed By: #### 2 03534 #### [facility],[address] [place], [place] [address] Result Comment: ACCO RDING TO THE NATIONAL KIDNEY DISEASE EDUCATION PROGRAM(NKDE), A NORMAL eGFR IS A VALUE GREATER THAN OR EQUAL TO 60 ML/MIN/1.73 SQ METERS. CHRONIC KIDNEY DISEASE: <60mL/MIN/1.73 SQ METERS KIDNEY FAILURE: <15mL/MIN/1.73 SQ METERS THIS TEST SHOULD ONLY BE USED FOR PATIENTS 18 YEARS OF AGE AND OLDER. Globulin (S) [Mass/Vol] 3.9 g/dL High 1.5 - 3.8 [facility] Comment on above: Performed By: #### 2 32404 #### [facility],[address] [place] [address] 79899 Glucose [Mass/Vol] 136 mg/dL High 74 - 106 [facility] Comment on above: Performed By: #### 2 53616 #### [facility],[address] [place] [address] 29308 Potassium [Moles/Vol] 5.1 mmol/L Normal 3.5 - 5.1 [facility] Comment on above: Performed By: #### 2 66300 #### [facility],[address] [place] [address] 41551 Protein [Mass/Vol] 8.2 g/dL Normal 6.4 - 8.2 [facility] Comment on above: Performed By: #### 2 36495 #### [facility],[address] [place] [address] 83657 Sodium [Moles/Vol] 131 mmol/L Low 136 - 145 [facility] Comment on above: Performed By: #### 2 13626 #### [facility],[address] [place] [address] 20288 Urea nitrogen [Mass/Vol] 12 mg/dL Normal 7 - 18 [facility] Comment on above: Performed By: #### 2 82327 #### [facility],[address] [place] [address] 04918 HbA1c (Bld)on 03-21-2023 Average glucose Estimated from glycated hemoglobin (Bld) [Mass/Vol] 143 mg/dL Normal [facility] Comment on above: Order Comment: Specbrooke brown Type: BLOOD SPECIMEN Ordering Facility: [facility] Address: [address] [place] [address] Result Comment: eAG: (Estimated average glucose) is a calculated value from HgbA1c and is hotel services sales representative of the average blood glucose level in the last 2-3 month period. Performed By: #### 5 5454-3 #### [facility] CLIA [id number] [address] [place] [address] [place] HbA1c (Bld) [Mass fraction] 6.6 % High 4.3-5.6 [facility] Comment on above: Order Comment: Courtney brown Type: BLOOD SPECIMEN Ordering Facility: [facility] Address: [address], [place] [address] Result Comment: Amer ican Diabetes Association guidelines indicate that patients with HgbA1c in the range 5.7-6.4% are at increased risk for development of diabetes, and intervention by lifestyle modification may be beneficial. HgbA1c greater or equal to 6.5% is considered diagnostic of diabetes. Performed By: #### 5 5454-3 #### [facility] CLIA [id number] [address] [place] [address] [facility] LIPID PROFILEon 03-21-2023 Cholesterol [Mass/Vol] 194 mg/dL Normal 0 - 240 [facility] Comment on above: Performed By: #### 2 17264 #### [facility],[address] [place] [address] 75820 Cholesterol in HDL [Mass/Vol] 40 mg/dL Normal 40 - 60 [facility] Comment on above: Performed By: #### 2 00682 #### [facility],[address] [place] [address] 60533 Cholesterol in LDL [Mass/Vol] 116 mg/dL Normal 0 - 129 [facility] Comment on above: Performed By: #### 2 28366 #### [facility],[address] [place] [address] 89995 Cholesterol.total/C holesterol in HDL [Mass ratio] 4.9 {ratio} Normal 0.0 - 5.0 [facility] Comment on above: Performed By: #### 2 31533 #### [facility],[address] [place] [address] 64128 Lipid 1996 panel Normal [facility] Comment on above: Result Comment: LIPI D PROFILE Performed By: #### 2 43503 #### [facility],[address] [place] [address] 01948 Triglyceride [Mass/Vol] 189 mg/dL High 0 - 150 [facility] Comment on above: Performed By: #### 2 81509 #### [facility],[address] [place] [address] 45824 CMP with eGFRon 09-18-2022 AGE 66 years Normal [facility] Comment on above: Performed By: #### 2 23451 #### [facility],[address] [place] [address] 65661 Albumin [Mass/Vol] 4.3 g/dL Normal 3.4 - 5.0 [facility] Comment on above: Performed By: #### 2 57553 #### [facility],[address] [place] [address] 17685 Albumin/Globulin [Mass ratio] 1.5 {ratio} Normal 0.9 - 1.6 [facility] Comment on above: Performed By: #### 2 87429 #### [facility],[address] [place] [address] 06338 ALK PHOS 89 U/L Normal 46 - 116 [facility] Comment on above: Performed By: #### 2 59985 #### [facility],[address] [place] [address] 84959 ALT [Catalytic activity/Vol] 40 U/L Normal 16 - 63 [facility] Comment on above: Performed By: #### 2 86842 #### [facility],[address] [place] [address] 40014 Anion gap [Moles/Vol] 19 mmol/L Normal 10 - 20 [facility] Comment on above: Performed By: #### 2 96523 #### [facility],[address] [place] [address] 57079 AST [Catalytic activity/Vol] 19 U/L Normal 15 - 37 [facility] Comment on above: Performed By: #### 2 75658 #### [facility],[address] [place] [address] 70356 B/C RATIO 8 ratio Normal 0 - 30 [facility] Comment on above: Performed By: #### 2 01212 #### [facility],[address] [place] [address] 21533 Bilirubin [Mass/Vol] 0.6 mg/dL Normal 0.2 - 1.0 [facility] Comment on above: Performed By: #### 2 28975 #### [facility],[address] [place] [address] 37693 Calcium [Mass/Vol] 10.0 mg/dL Normal 8.5 - 10.1 [facility] Comment on above: Performed By: #### 2 24375 #### [facility],[address] [place] [address] 05957 Chloride [Moles/Vol] 84 mmol/L Low 98 - 107 [facility] Comment on above: Performed By: #### 2 21011 #### [facility],[address] [place] [address] 68063 CMP with eGFR Normal [facility] Comment on above: Result Comment: COMP REHENSIVE METABOLIC PANEL Performed By: #### 2 67199 #### [facility],[address] [place] [address] 83641 CO2 [Moles/Vol] 24.0 mmol/L Normal 21.0 - 32.0 [facility] Comment on above: Performed By: #### 2 46526 #### [facility],[address] [place] [address] 32182 Creatinine [Mass/Vol] 1.09 mg/dL Normal 0.70 - 1.30 [facility] Comment on above: Performed By: #### 2 00319 #### [facility],[address] [place] [address] 69395 GFR/1.73 sq M.predicted among non-blacks MDRD (S/P/Bld) [Vol rate/Area] mL/min/{1.73_m2} Normal 60 - 999 [facility] Comment on above: Performed By: #### 2 18281 #### [facility],[address] [place] [address] 63308 Result Comment: ACCO RDING TO THE NATIONAL KIDNEY DISEASE EDUCATION PROGRAM(NKDE), A NORMAL eGFR IS A VALUE GREATER THAN OR EQUAL TO 60 ML/MIN/1.73 SQ METERS. CHRONIC KIDNEY DISEASE: <60mL/MIN/1.73 SQ METERS KIDNEY FAILURE: <15mL/MIN/1.73 SQ METERS THIS TEST SHOULD ONLY BE USED FOR PATIENTS 18 YEARS OF AGE AND OLDER. Globulin (S) [Mass/Vol] 2.8 g/dL Normal 1.5 - 3.8 [facility] Comment on above: Performed By: #### 2 89751 #### [facility],[address] [place] [address] 14306 Glucose [Mass/Vol] 134 mg/dL High 74 - 106 [facility] Comment on above: Performed By: #### 2 76063 #### [facility],[address] [place] [address] 87016 Potassium [Moles/Vol] 3.4 mmol/L Low 3.5 - 5.1 [facility] Comment on above: Performed By: #### 2 62258 #### [facility],[address] [place] [address] 41581 Protein [Mass/Vol] 7.1 g/dL Normal 6.4 - 8.2 [facility] Comment on above: Performed By: #### 2 52193 #### [facility],[address] [place] [address] 96516 Sodium [Moles/Vol] 124 mmol/L Low 136 - 145 [facility] Comment on above: Performed By: #### 2 26639 #### [facility],[address] [place] [address] 19582 Urea nitrogen [Mass/Vol] 9 mg/dL Normal 7 - 18 [facility] Comment on above: Performed By: #### 2 37020 #### [facility],[address] [place] [address] 35376 HGB A1C [CCL]on 09-18-2022 HbA1c (Bld) [Mass fraction] 6.2 % High 4.3-5.6 [facility] Comment on above: Result Comment: [facility] guidelines indicate that patients with HgbA1c in the range 5.7-6.4% are at increased risk for development of diabetes, and intervention by lifestyle modification may be beneficial. HgbA1c greater or equal to 6.5% is considered diagnostic of diabetes. Performed By: #### 2 46859 #### [facility],[address] [place] [address] 13930 Hemoglobin A0 131 mg/dL Normal [facility] Comment on above: Result Comment: eAG: (Estimated average glucose) is a calculated value from HgbA1c and is hotel services sales representative of the average blood glucose level in the last 2-3 month period. [place] [address] [place] [address] Mitch Santos III, M.D. [id number] Performed By: #### 2 65045 #### [address] [address] LIPID PROFILEon 09-18-2022 Cholesterol [Mass/Vol] 136 mg/dL Normal 0 - 240 [facility] Comment on above: Performed By: #### 2 48052 #### [address] [address] Cholesterol in HDL [Mass/Vol] 39 mg/dL Low 40 - 60 [facility] Comment on above: Performed By: #### 2 46904 #### [address] [address] Cholesterol in LDL [Mass/Vol] 69 mg/dL Normal 0 - 129 [facility] Comment on above: Performed By: #### 2 15034 #### [address] [address] Cholesterol.total/C holesterol in HDL [Mass ratio] 3.5 {ratio} Normal 0.0 - 5.0 [facility] Comment on above: Performed By: #### 2 37631 #### [address] [address] Lipid 1996 panel Normal [facility] Comment on above: Result Comment: LIPI D PROFILE Performed By: #### 2 89733 #### [facility],[address] [place] [address] 17005 Triglyceride [Mass/Vol] 138 mg/dL Normal 0 - 150 [facility] Comment on above: Performed By: #### 2 38550 #### [facility],[address] [place], [place] [address] CBC (NO DIFF)on 09-16-2022 CBC panel Auto (Bld) Normal [facility] Comment on above: Result Comment: CBC( WITHOUT DIFFERENTIAL) Performed By: #### 2 91705 #### [facility],[address] [place], [place] [address] Erythrocyte distribution width (RBC) [Ratio] 12.5 % Normal 12.0 - 15.6 [facility] Comment on above: Performed By: #### 2 94689 #### [facility],[address] [place] [address] 85177 Hematocrit (Bld) [Volume fraction] 41.5 % Normal 40.0 - 52.0 [facility] Comment on above: Performed By: #### 2 47447 #### [facility],[address] [place] [address] 95880 Hemoglobin (Bld) [Mass/Vol] 14.5 g/dL Normal 13.0 - 17.5 [facility] Comment on above: Performed By: #### 2 30097 #### [facility],[address] [place] [address] 66637 MCH (RBC) [Entitic mass] 32 pg Normal 27 - 33 [facility] Comment on above: Performed By: #### 2 18190 #### [facility],[address] [place] [address] 91511 MCHC 35 X10 3 Normal 32 - 36 [facility] Comment on above: Performed By: #### 2 41650 #### [facility],[address] [place] [address] 63013 MCV (RBC) [Entitic vol] 92 fL Normal 81 - 98 [facility] Comment on above: Performed By: #### 2 30861 #### [facility],[address] [place] [address] 64232 PLATELET 551 x10EE3/UL High 150 - 450 [facility] Comment on above: Performed By: #### 2 05496 #### [facility],[address] [place] [address] 92080 Platelet mean volume (Bld) [Entitic vol] 7.1 fL Normal 6.4 - 10.5 [facility] Comment on above: Performed By: #### 2 30513 #### [facility],[address] [place] [address] 08787 RBC 4.51 x 10EE6/UL Normal 4.50 - 6.00 [facility] Comment on above: Performed By: #### 2 72919 #### [facility],[address] [place] [address] 81342 WBC 11.4 x 10EE3/UL High 4.5 - 10.8 [facility] Comment on above: Performed By: #### 2 82059 #### [facility],[address] [place] [address] 85691 HbA1c (Bld)on 09-16-2022 Average glucose Estimated from glycated hemoglobin (Bld) [Mass/Vol] 131 mg/dL Normal [facility] Comment on above: Order Comment: Speci men Type: BLOOD SPECIMEN Ordering Facility: [facility] Address: [address] [place] [address] Result Comment: eAG: (Estimated average glucose) is a calculated value from HgbA1c and is hotel services sales representative of the average blood glucose level in the last 2-3 month period. Performed By: #### 5 5454-3 #### [facility] CLIA [id number] [address] [place] [address] [place] HbA1c (Bld) [Mass fraction] 6.2 % High 4.3-5.6 [facility] Comment on above: Order Comment: Courtney men Type: BLOOD SPECIMEN Ordering Facility: [facility] Address: [address] , [place] [address] Result Comment: T[place] Diabetes Association guidelines indicate that patients with HgbA1c in the range 5.7-6.4% are at increased risk for development of diabetes, and intervention by lifestyle modification may be beneficial. HgbA1c greater or equal to 6.5% is considered diagnostic of diabetes. Performed By: #### 5 5454-3 #### [facility] CLIA [id number] [address] [place], [place] [address] [address] [facility] CNOVon 04-19-2022 CNOV Office Visit ([facility] ) KIM SUN ([id number]) 1955 M Date Time Provider Department 04/19/22 10:45 AM ENRIQUE GREENE [facility] During your visit today, we recorded the following information about you: Temperature Pulse Respiration Blood pressure 98.6 degrees 71/minute 16/minute 158/78 Weight 85 kg Enrique Greene MD 04/19/2022 11:27 AM Signed Patient presents with: Rash: Rash all over x several weeks HPI: Rash: Location: Head to foot including scalp, ears, fingers. Duration: few weeks Pruritis: Yes Pain: hurts in excoriations Change: started on the abdomen, spread since Bleeding/ulceration/b cassandra/pustule: red areas, bumps between fingers, open scratches Contacts with rash: No Exposure: switched to dove sensitive. No new soaps, detergents, fabric softeners, lotions. Outdoor exposure: No. Change in medications: No. Recent illness: No. Treatment: hydrocortisone cream prescribed by PCP 04/18/22, oral benadryl No past issues with eczema. No weight change, fever, change in cough, bowel changes. Component Latest Ref Rng AND Units 09/17/2021 Hemoglobin A1C 4.3 - 5.6 % 6.1 (H) Reports his PCP could not get him in today, so suggested coming here for a refill of cream and cortisone shot. PAST MEDICAL HISTORY Diagnosis Date Hypertension Type 2 diabetes mellitus without complication, with no history of insulin use ([facility]) MEDICATIONS: cloNIDine HCl (CATAPRES) 0.2 mg tablet Take 0.2 mg by mouth once daily. metFORMIN (GLUCOPHAGE) 500 mg tablet Take 500 mg by mouth twice daily. FREESTYLE LITE METER monitoring kit as directed. FREESTYLE LITE STRIPS test strip FREESTYLE LANCETS 28 gauge misc USE TO TEST TWICE DAILY aspirin, enteric coated (ASPIRIN, ENTERIC COATED) 81 mg EC tablet Take 81 mg by mouth once daily. amLODIPine (NORVASC) 10 mg tablet Take 10 mg by mouth once daily. losartan (COZAAR) 100 mg tablet Take 1 tablet by mouth once daily. loratadine (CLARITIN) 10 mg tablet Take 1 tablet by mouth once daily as needed. albuterol HFA (PROAIR HFA) 90 mcg/actuation inhaler Inhale 2 Puffs as instructed every 6 hours as needed. ALLERGIES: ALLERGIES No Known Allergies VITALS: BP 158/78 Pulse 71 Temp 37 ?C (98.6 ?F) (Tympanic) Resp 16 Wt 85 kg (187 lb 6.4 oz) SpO2 97% PHYSICAL EXAM: GEN: pleasant, no acute distress, alert. Accompanied by his daugher. SKIN: ill defined erythema and mild scale diffusely on the extremities and body. Rash is present between the fingers without defined papules or vesicles. White seborrhea patch 4cm center of the top of the head. EXT: No clubbing cyanosis, or edema. Yellow suspected tobacco stain on right finger nails. ASSESSMENT/PLAN: 1. Eczema, unspecified type - ICD9: 692.9, ICD10: L30.9 (primary diagnosis) 2. Seborrhea - ICD9: 706.3, ICD10: L21.9 Undetermined trigger for pruritic rash with erythema and scale. Denies past issues with sensitive skin, winter eczema, or seborrhea. - PREDNISONE 10 MG TABLET taper. Potential steroid side effect of elevated sugar levels, DM is controlled. I advised follow up with PCP or dermatology if symptoms persist or return. Systemic issue including paraneoplastic syndrome should be assessed. Enrique Greene MD Allergies As of Date: 04/19/2022 (No Known Allergies) Date Reviewed: 04/19/2022 Reviewed by: Carlene Cruz LPN - Fully Assessed Reason for Visit: Rash [1087] Cmt: Rash all over x several weeks Primary Visit Diagnosis:Eczema, unspecified type [L30.9] Other Visit Diagnosis:Seborrhea [L21.9] Order(s):predniSONE (DELTASONE) 10 mg tabletTake 4 tablets by mouth once daily for 3 days, THEN 2 tablets once daily for 3 days, THEN 1 tablet once daily for 3 days. Take with food..Disp: 21 tabletRfl: 0 Prescriptions as of 04/19/2022 - predniSONE (DELTASONE) 10 mg tablet Take 4 tablets by mouth once daily for 3 days, THEN 2 tablets once daily for 3 days, THEN 1 tablet once daily for 3 days. Take with food.. - cloNIDine HCl (CATAPRES) 0.2 mg tablet Take 0.2 mg by mouth once daily. - metFORMIN (GLUCOPHAGE) 500 mg tablet Take 500 mg by mouth twice daily. - FREESTYLE LITE METER monitoring kit as directed. - FREESTYLE LITE STRIPS test strip - FREESTYLE LANCETS [facility] USE TO TEST TWICE DAILY - aspirin, enteric coated (ASPIRIN, ENTERIC COATED) 81 mg EC tablet Take 81 mg by mouth once daily. - amLODIPine (NORVASC) 10 mg tablet Take 10 mg by mouth once daily. - losartan (COZAAR) 100 mg tablet Take 1 tablet by mouth once daily. - loratadine (CLARITIN) 10 mg tablet Take 1 tablet by mouth once daily as needed. - albuterol HFA (PROAIR HFA) 90 mcg/actuation inhaler Inhale 2 Puffs as instructed every 6 hours as needed. Problem List As Of Date 04/19/2022 Noted Resolved Type 2 diabetes mellitus without complication, *05/06/2019 Hypertension, essential [I10] 05/06/2019 (more content not included)... Normal [facility] Hemoglobin A1con 03-21-2021 Glucose [Mass/Vol] 128 mg/dL Normal [facility] Comment on above: Performed By: #### H BA1C #### [facility] Routine Lab [address], [place] [id number] HbA1c (Bld) [Mass fraction] 6.1 % High 4.3-5.6 [facility] Comment on above: Performed By: #### H BA1C #### [facility] Routine Lab [address], [place] [id number] Encounters Encounter Date Encounter Type Care Provider Facility Start: 03-21-2023 End: 03-21-2023 ambulatory DAVID ARITA [facility] Start: 09-16-2022 End: 09-16-2022 ambulatory DAVID ARITA [facility] Start: 04-19-2022 End: 04-19-2022 ambulatory DAVID ARITA Facility:[facility] Procedures Date Procedure Procedure Detail Performing Clinician Start: 03-21-2023 PSA screening DAVID GRANT IS Comment on above: Performed By: #### 2 [id number] #### [facility],[address] [place] [address] Payers Date Payer Category Payer Medicaid [id number] 1955 Unknown [id number] 1955 Unknown [id number] Medicaid [id number] Medicare [id number] Medicare [id number] Progress note 04-19-2022 Note Date & Type Note Facility 04-19-2022 Note HNO ID: [id number] Author: Enrique Greene MD Service: ? Author Type: Physician Type: Progress Notes Filed: 04/19/2022 11:27 AM Note Text: Patient presents with: Rash: Rash all over x several weeks HPI: Rash: Location: Head to foot including scalp, ears, fingers. Duration: few weeks Pruritis: Yes Pain: hurts in excoriations Change: started on the abdomen, spread since Bleeding/ulceration/blister/pustule: red areas, bumps between fingers, open scratches Contacts with rash: No Exposure: switched to dove sensitive. No new soaps, detergents, fabric softeners, lotions. Outdoor exposure: No. Change in medications: No. Recent illness: No. Treatment: hydrocortisone cream prescribed by PCP 04/18/22, oral benadryl No past issues with eczema. No weight change, fever, change in cough, bowel changes. Component Latest Ref Rng AND Units 09/17/2021 Hemoglobin A1C 4.3 - 5.6 % 6.1 (H) Reports his PCP could not get him in today, so suggested coming here for a refill of cream and cortisone shot. PAST MEDICAL HISTORY Diagnosis Date Hypertension Type 2 diabetes mellitus without complication, with no history of insulin use ([facility]) MEDICATIONS: cloNIDine HCl (CATAPRES) 0.2 mg tablet Take 0.2 mg by mouth once daily. metFORMIN (GLUCOPHAGE) 500 mg tablet Take 500 mg by mouth twice daily. FREESTYLE LITE METER monitoring kit as directed. FREESTYLE LITE STRIPS test strip FREESTYLE LANCETS 28 gauge misc USE TO TEST TWICE DAILY aspirin, enteric coated (ASPIRIN, ENTERIC COATED) 81 mg EC tablet Take 81 mg by mouth once daily. amLODIPine (NORVASC) 10 mg tablet Take 10 mg by mouth once daily. losartan (COZAAR) 100 mg tablet Take 1 tablet by mouth once daily. loratadine (CLARITIN) 10 mg tablet Take 1 tablet by mouth once daily as needed. albuterol HFA (PROAIR HFA) 90 mcg/actuation inhaler Inhale 2 Puffs as instructed every 6 hours as needed. ALLERGIES: ALLERGIES No Known Allergies VITALS: BP 158/78 Pulse 71 Temp 37 ?C (98.6 ?F) (Tympanic) Resp 16 Wt 85 kg (187 lb 6.4 oz) SpO2 97% PHYSICAL EXAM: GEN: pleasant, no acute distress, alert. Accompanied by his daugher. SKIN: ill defined erythema and mild scale diffusely on the extremities and body. Rash is present between the fingers without defined papules or vesicles. White seborrhea patch 4cm center of the top of the head. EXT: No clubbing cyanosis, or edema. Yellow suspected tobacco stain on right finger nails. ASSESSMENT/PLAN: 1. Eczema, unspecified type - ICD9: 692.9, ICD10: L30.9 (primary diagnosis) 2. Seborrhea - ICD9: 706.3, ICD10: L21.9 Undetermined trigger for pruritic rash with erythema and scale. Denies past issues with sensitive skin, winter eczema, or seborrhea. - PREDNISONE 10 MG TABLET taper. Potential steroid side effect of elevated sugar levels, DM is controlled. I advised follow up with PCP or dermatology if symptoms persist or return. Systemic issue including paraneoplastic syndrome should be assessed. Enrique Greene MD [facility] Summary Purpose Family History No Family History Records FoundNo Family History Records FoundNo Family History Records Found Advance Directives No Advanced Directives Records FoundNo Advanced Directives Records FoundNo Advanced Directives Records Found Additional Source Comments (unrecognized sect ion and content) No Status Records FoundNo Status Records FoundNo Status Records Found INFORMATION SOURCE (unrecogn ized section and content) DATE CREATED AUTHOR 03/21/2021 [facility] DATE CREATED AUTHOR AUTHOR'S ORGANIZ ATION 03/23/2023 [facility] DATE CREATED AUTHOR AUTHOR'S ORGANIZ ATION 03/25/2023 [facility] FOR RECORDS PERTAINING TO PATIENTS WHO ARE OR HAVE BEEN ENROLLED IN A CHEMICAL DEPENDENCY/SUBSTANCEABUSE PROGRAM, SOME INFORMATION MAY BE OMITTED. This clinical summary was aggregated from multiple sources. Caution should be exercised in using it in the provision of clinical care. This summary normalizes information from multiple sources, and as a consequence, information in this document may materially change the coding, format and clinical context of patient data. In addition, data may be omitted in some cases. CLINICAL DECISIONS SHOULD BE BASED ON THE PRIMARY CLINICAL RECORDS. [facility] [employer] [facility]. provides no warranty or guarantee of the accuracy or completeness of information in this document.
[2024-02-26] MEDS: Pregabalin 50 MG Capsule PO (21:57)
[2024-02-26] MEDS: Atorvastatin Calcium 80 MG Tablet PO (21:57)
[2024-02-27 00:21] LABS: Bacteria 0 SEEN /hpf (None Seen); Mucous, Urine 0 SEEN /hpf (<or=2+); Red Blood Cells-Urine 0 SEEN /hpf (0-5); Squamous Epithelial Cells - UA 0 SEEN /hpf (0-5); White Blood Cells 0 SEEN /hpf (0-5)
[2024-02-27 00:25] LABS: Color, Urine Yellow (Yellow); Glucose, Dipstick Normal (Normal); Ketone-Dipstick Negative (Negative); Leukocyte Esterase-Dipstick Negative /ul (Negative); Nitrite-Dipstick Negative (Negative); Occult Blood-Urine Negative /ul (Negative); Protein-Dipstick 15 mg/dl (Negative); Specific Gravity, Urine 1.015 (1.002-1.030); Urine Bilirubin Dipstick Negative (Negative); Urine Clarity Clear (Clear); Urine Urobilinogen Normal (Normal)
[2024-02-27 01:35] VITALS: BP 156/85; PULSE 73; RESP 16; TEMP 36.8; O2SAT 98
[2024-02-27] MEDS: Acetaminophen 325 MG Tablet 650 MG PO (01:48)
[2024-02-27 05:35] VITALS: BP 167/56; PULSE 73; RESP 18; TEMP 36.7; O2SAT 94
[2024-02-27 05:46] LABS: Cholesterol 122 mg/dL (200); High Density Lipoprotein 26 mg/dL; Thyroid Stim Hormone (TSH) 0.886 uIU/mL (0.358-3.740); Triglycerides 151 mg/dL; Very Low Density Lipoprotein 30 mg/dL (5-40)
[2024-02-27 07:03] LABS: Bedside Glucose 202 mg/dL (74-106)
[2024-02-27 07:40] VITALS: O2SAT 92
[2024-02-27 09:35] VITALS: BP 117/73; PULSE 84; RESP 18; TEMP 36.9; O2SAT 95
--- NOTE | 2024-02-27 10:00 | PN.HOSP_ITS ---
Reason for Visit Reason for Visit: Diagnoses Acute kidney failure, unspecified (02/26/24) Objective Data Objective Data Vital Signs: Vital Signs Temp Pulse Resp BP Pulse Ox O2 Del Method 98.0 F 73 18 167/56 H 92 Room Air 02/27/24 05:35 02/27/24 05:35 02/27/24 05:35 02/27/24 05:35 02/27/24 07:40 02/27/24 07:40 Oxygen Delivery Method Room Air Weight: 85.4 kg Body Mass Index (BMI) 29.5 Intake & Output: Intake and Output for Last 24 Hours 02/25/24 02/26/24 02/27/24 23:59 23:59 23:59 Intake Total 1560.00 / 1560.00 1350 / 1350 Balance 1560.00 / 1560.00 1350 / 1350 Lab / Micro Data 02/26/24 12:03 02/26/24 12:03 Labs: Laboratory Results - last 24 hr 02/26/24 11:55: POC Glucose 147 H 02/26/24 12:03: WBC 17.6 H, RBC 4.84, Hgb 14.5, Hct 41.5, MCV 85.7, MCH 30.0, MCHC 34.9, RDW Std Deviation 39.8, RDW Coeff of Katherine 12.8, Plt Count 544 H, MPV 8.8, Immature Gran % (Auto) 0.500, Neut % (Auto) 54.4, Lymph % (Auto) 29.7, Dent % (Auto) 8.8, Eos % (Auto) 6.0 H, Baso % (Auto) 0.6, Absolute Neuts (auto) 9.6 H , Absolute Lymphs (auto) 5.23 H, Nucleated RBC % 0, Differential Comment COMMENT, Diff Path Review August foll, PT 12.8, INR 1.0, APTT 32.9, Sodium 126 L, P otassium 3.3 L, Chloride 89 L, Carbon Dioxide 24.0, Anion Gap 14, BUN 45 H, C reatinine 3.94 H, Estim Creat Clear Calc 20.25, Est GFR (MDRD) Af Amer 20 L, Est GFR (MDRD) Non-Af 16 L, BUN/Creatinine Ratio 11.4, Glucose 134 H, Calcium 8.7, Troponin I High Sens 26 02/26/24 16:51: POC Glucose 169 H 02/27/24 00:10: Urine Color Yellow, Urine Clarity Clear, Urine pH 5.0, Ur Specific Hugo 1.015, Urine Protein 15 H, Urine Glucose (UA) Normal, Urine Ketones Negative, Urine Occult Blood Negative, Urine Nitrite Negative, Urine Bilirubin Negative, Urine Urobilinogen Normal, Ur Leukocyte Esterase Negative, Urine RBC 0 SEEN, Urine WBC 0 SEEN, Ur Squamous Epith Cells 0 SEEN, Urine Bacteria 0 SEEN, Urine Mucus 0 SEEN 02/27/24 04:40: Triglycerides 151, Cholesterol 122, LDL Cholesterol 66, VLDL Cholesterol 30, HDL Cholesterol 26 L, TSH 0.886 02/27/24 06:27: POC Glucose 202 H Radiography Diagnostic Testing: Radiology Impression Brain CT 02/26/24 11:56 IMPRESSION: Acute/subacute infarct involving the posterior medial right occipital lobe. 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 N.B. : The above Results were Read Back by Doni Quiroga MD to [facility] and understanding confirmed on 02/26/2024 12:11:48 (ET). Electronically Signed: Doni Quiroga MD at 12:15 EST , ADDENDUM: 02/26/24 1221 IMPRESSION: Acute/subacute infarct involving the posterior medial right occipital lobe. 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 N.B. : The above Results were Read Back by Doni Quiroga MD to Nikolasjorje Stauffer and understanding confirmed on 02/26/2024 12:11:48 (ET). Electronically Signed: Doni Quiroga MD at 12:15 EST , Chest X-Ray 02/26/24 11:56 IMPRESSION: No acute abnormality is seen. Electronically Signed: Doni Quiroga MD at 12:49 EST , Head/Neck CTA 02/26/24 11:56 IMPRESSION: Calcific plaques throughout the right and left common carotid arteries. Calcific plaques at the carotid bifurcations bilaterally. 50-69% stenosis on the right and greater than 70% stenosis on the left. N.B. : The above Results were Read Back by Doni Quiroga MD to Nikolas Stauffer MD, and understanding confirmed on 02/26/2024 12:20:46 (ET). Electronically Signed: Doni Quiroga MD at 12:22 EST , ADDENDUM: 02/26/24 1229 IMPRESSION: Calcific plaques throughout the right and left common carotid arteries. Calcific plaques at the carotid bifurcations bilaterally. 50-69% stenosis on the right and greater than 70% stenosis on the left. N.B. : The above Results were Read Back by Doni Quiroga MD to Nikolas Stauffer MD, and understanding confirmed on 02/26/2024 12:20:46 (ET). Electronically Signed: Doni Quiroga MD at 12:22 EST , Brain MRI 02/26/24 13:15 IMPRESSION: Moderate periventricular white matter ischemic changes Acute foci of ischemia within the right occipital lobe, left frontal parietal region, and left cerebellar hemispheres ingesting embolic disease. Clinical correlation recommended. Electronically Signed: Jhon Lagos MD at 16:41 EST , ADDENDUM: 02/26/24 1711 IMPRESSION: Moderate periventricular white matter ischemic changes Acute foci of ischemia within the right occipital lobe, left frontal parietal region, and left cerebellar hemispheres ingesting embolic disease. Clinical correlation recommended. N.B. : The above Results were Read Back by Jhon Lagos MD to Deedee Hare RN, and understanding confirmed on 02/26/2024 17:05:00 (ET). Electronically Signed: Jhon Lagos MD at 16:41 EST , Renal Ultrasound 02/26/24 13:25 IMPRESSION: Normal ultrasound of the kidneys and urinary bladder. Electronically Signed: Doni Quiroga MD at 14:13 EST , Assessment & Plan Assessment/Plan (1) Acute renal failure: PLAN: Plan # Left visual field deficit with acute infarcts involving posterior medial right occipital lobe, left frontal parietal region, and left cerebellar hemispheres -Admit to tele -CT head w/ acute/subacute infarct involving posterior medial right occipital lobe and an old infarction posterior left occipital lobe and right cerebellar hemisphere -CTA head and neck with greater than 70% stenosis left carotid and between 50 to 69% on the right -MRI ordered -NIH q4hr -asa, Plavix, statin -Echo w/ bubble study done 10/18/2023 and was negative for PFO/ASD so this does not need to be repeated -PT/OT/Speech eval -Teleneuro consult ordered -Hold BP medications to allow for permissive hypertension for 24 hours unless SBP greater than 220 or DBP greater than 120 or until stroke is ruled out -02/26: MRI resulted and demonstrated acute infarcts involving posterior medial right occipital lobe, left frontal parietal region, and left cerebellar hemispheres suggesting embolic disease, patient on telemetry, added limited echo as patient does not have PFO this can further evaluate for anything valvular that could be embolizing. Patient on aspirin, as this appears to be embolic not on Plavix, will await further neurology recommendations. Patient continued on statin # VERONICA -Patient with vomiting 30 times on Sunday and had nausea and vomiting all weekend and has BUN of 45 and creatinine 3.94 with a normal baseline -Will give IV fluids, suspect prerenal, if not improving will obtain further workup w/ urine lytes -02/26: # Nausea and vomiting -Possibly gastroenteritis, patient's symptoms have resolved so do not necessarily feel like any further abdominal imaging is warranted unless symptoms recur, patient volume depleted and with left visual field deficit but otherwise has no acute complaints -02/26: Suspect that nausea and vomiting may have indeed been due to cerebellar infarct as one was seen on MRI though cannot say definitively, the symptoms have improved however # Hyponatremia -Patient has chronic hyponatremia, today slightly lower than it was October 17, suspect that this decrease is due to dehydration -Repeat in the a.m. -02/26: # Leukocytosis -Possibly reactive this patient has no focal complaints at this time but given back pain and kidney function will obtain kidney and bladder ultrasound and UA -02/26: #Type 2 diabetes mellitus -Glucose checks and sliding scale insulin -02/26: A.m. glucose 202, did have recent A1c of 6.4 in October however given this was greater than 3 months we will also recheck, continue sliding scale #Hypertension -Holding home antihypertensives to allow permissive hypertension -02/26: #Hypokalemia -Replace -Repeat in the AM -02/26: #Tobacco use -Advise cessation -Nicotine replacement available if desired -02/26: Agreeable nicotine patch #DVT ppx: SCDs Karmen Chew MD Charges/Coding Visit Charges Inpatient E&M: 66211 Subs Hosp L2
[2024-02-27 10:24] LABS: Absolute Lymphocyte Count 3.22 X10^3/uL (0.83-4.51); Absolute Neutrophil Count 9.7 X10^3/uL (2.0-7.7); Basophil# 0.14 X10^3/uL; Basophil% 0.9 % (0-1); Eosinophil# 1.03 X10^3/uL; Eosinophils% 6.7 % (0-5); Hematocrit 37.8 % (40-54); Hemoglobin 13.5 g/dL (13.0-16.5); Lymphocyte # 3.22 X10^3/ul (0.83-4.51); Lymphocyte % 20.8 % (19-41); Mean Corp Hgb Conc 35.7 g/dL (32-36); Mean Corpuscular Hgb 30.4 pg (27.0-32.0); Mean Corpuscular Volume 85.1 fL (80-94); Mean Platelet Vol. 9.1 fl (6.2-12.0); Monocyte# 1.35 X10^3/uL; Monocyte% 8.7 % (0-10); NRBC Flagged by Analyzer 0 % (0-5); Neutrophil # 9.66 X10^3/uL (2.7-7.7); Neutrophil % 62.4 % (47-70); Platelet Count 476 K/mm3 (150-450); RBC Distribution Width CV 12.7 % (11.6-14.6); RBC Distribution Width SD 39.7 fl (35.1-43.9); Red Blood Count 4.44 M/mm3 (4.6-6.2); White Blood Count 15.5 K/mm3 (4.4-11.0)
[2024-02-27] MEDS: Aspirin 81 MG TAB.CHEW PO (10:25)
[2024-02-27] MEDS: Pregabalin 50 MG Capsule PO (10:25)
--- NOTE | 2024-02-27 10:45 | CASEMGMT ---
RN?CM?EARLY INTERVENTION SPECIALIST?CM?to room to meet with patient for initial transition planning/care coordination?assessment.?RN?CM?introduced self and role at [facility].? Pt voices understanding and consents to?assessment?at this time.? Pt sitting up in chair in room in no distress at this time.? Daughter, Ysabel, @ bedside, pt agreeable to her being present during assessment. Pt is A/O at this time and answers all questions appropriately.?? Care providers, pharmacy, and demographics verified/updated at this time. PCP: Cecilia العلي NP Specialists: none Preferred Pharmacy: [facility] [place] Otherwise, uses [facility], [place]. Insurance: [employer] Prescription Benefit:?yes Living Will/HPOA:?Pt does not currently have LW/HCPOA. LNOK: 3 adult daughters: Tamir Grady, and Tarah Living Arrangements: Lives alone in [facility] apartment w/8 steps (long and wide steps) to enter. Independent and manages his own medications. Daughters assist w/getting groceries and take pt to appts. Transportation:?Pt does not drive. Daughters provide transportation. DME: ?States has the following DME:?grab bars, nebulizer, glucometer. Pt states he has not used the glucometer for about 3-4 months. PCP checks HgbA1C. Pt has an electric W/C and 2 motorized scooters. HHC/SNF: No hx of either. No needs identified. PT/OT evals reviewed-no additional therapy recommended. ST eval reviewed--further ST recommended d/t left eye deficit and for strategies to compensate. Pt and dtr made aware of recommendation. Pt states this is improving and he declines wanting script for OP ST. He was made aware to discuss this w/his PCP if he changes his mind once he returns home. He voices understanding. Pt wishes to return home and states has no concerns with going home at time of discharge.??CM?to follow for any further discharge planning/needs.? Pt and daughter voice no concerns/needs at this time.? PLAN:??Home w/family support and discharge plans in place. Parminder ROUSEN?RN?CM
[2024-02-27 11:02] LABS: ALB/GLOB Ratio 1.2 RATIO (0.9-2.4); AST(SGOT) 15 U/L (15-37); Alanine Aminotransfer ALT/SGPT 20 U/L (16-61); Albumin, Serum 3.6 g/dL (3.2-5.0); Alkaline Phosphatase 123 U/L (45-117); Anion Gap 10 (5-15); BUN 37 mg/dL (7-18); BUN/Creat Ratio 22.4 RATIO (10-20); Calcium,Total 8.4 mg/dL (8.5-10.1); Chloride 101 mmol/L (98-107); Creatinine, Serum 1.65 mg/dL (0.70-1.30); EST Glomerular Filtration Rate 44 mL/min (>60); Est Glom Filt Rate - Afr Amer 54 mL/min (>60); Estimated Creatinine Clearance 45.36 ml/min; Globulin 3.1 g/dL (2.2-4.2); Glucose 137 mg/dL (74-106); Potassium 3.5 mmol/L (3.5-5.1); Protein, Total 6.7 g/dL (6.4-8.2); Sodium Level 131 mmol/L (136-145)
--- NOTE | 2024-02-27 12:10 | CASEMGMT ---
SW completed a PHQ9 as patient may have had a Stroke. Patient scored a 0 which indicates no depression. Patient declined any need for counseling resources. Agatha SALMON
[2024-02-27 12:18] LABS: Bedside Glucose 156 mg/dL (74-106)
--- NOTE | 2024-02-27 13:09 | STROKE.CONS ---
Assessment and Plan: Stroke Assessment/Plan KIM SUN is a 68 M with a history of CKD and a prior left MCA stroke with no residual (10/30) who presents for evaluation of nausea, vomiting, likely fevers and left sided vision changes. Exam with a left homonymous hemianopia. Neurological examination shows left homonymous hemianopia. Neuroimaging shows a right mesial occpital infarct in the [employer] territory. - Please follow up on TTE results to exclude a high risk cardioembolic source. - Would get 21 day event monitor after discharge to rule out subclinical atrial fibrillation. - Continue aspirin 81mg - If PFO on echo, would get lower extremily doppler to rule out DVT given his recent dehydration and vomiting. - Would like to increase atorvastatin to 80mg qhs, but it appears his PCP had concerns with higher doses, so reasonable to continue 40mg qhs. 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 Sun hasn't driven for the last several years. - Recommend smoking cessation. HPI Consult Data Date of Consult: 02/27/24 HPI Narrative HPI Narrative: KIM SUN, is a 68 M who presents after several days of severe nausea, vomiting and likely fevers. He spent most of the prior weekend in bed because he didnt' feel well. When he started to feel somewhat better on Sunday (although he was still severely fatigued), he noticed difficulty in his left visual field. Specifically, he noted that while he was watching a football game he was only able to see the right lower corner of the television and when he went to roll cigarettes he was unable to put the filters on when positioned to the left. He was in acute on chronic renal failure at the time of presentation and his creatinine markedly improved with hydration. He feels quite a bit better today and feels that his vision is nearly normal, although his exam appears to be relativley consistent with what has been documented since admission. No other focal signs or symptoms. It appears that he had a 7 day event monitor that he wore for most of that time after his prior admission, but he is uncertain of the results. He also increased to 80mg atorvastatin after his last stroke, but his dose was reduced back to 40mg qhs by his PCP, although his family isn't quite certain why. [facility] Medical History Arteriosclerosis of both carotid arteries Arthritis Aortic valve, bicuspid Acute ischemic left MCA stroke Hypertension COPD (chronic obstructive pulmonary disease) Pulmonary hypertension Aortic stenosis Diabetes mellitus, type 2 History of alcohol abuse Cannabis use disorder HLD (hyperlipidemia) History of CVA (cerebrovascular accident) Home Medications ?Medication ?Instructions ?Recorded ?Last Taken ?Type amlodipine 5 mg tablet 5 mg PO DAILY blood pressure 90 10/18/23 Unknown Rx days #90 tabs aspirin 81 mg chewable tablet 81 mg PO BREAKFAST heart health 90 10/18/23 Unknown Rx days #90 tabs albuterol sulfate 2.5 mg/3 mL 2.5 mg inhalation Q6H 11/20/23 Unknown History (0.083 %) solution for nebulization atorvastatin 80 mg tablet 40 mg PO QHS cholesterol 11/20/23 Unknown History clonidine HCl 0.2 mg tablet 0.2 mg PO BID blood pressure 11/20/23 Unknown History metformin 500 mg tablet,extended 1,000 mg PO DAILY diabetes 11/20/23 Unknown History release 24 hr pregabalin 150 mg capsule 150 mg PO TID nerve pain 11/20/23 Unknown History Allergy/AdvReac Type Severity Reaction Status Date / Time No Known Allergies Allergy Verified 10/17/23 19:37 Family History Mother Breast cancer Diabetes Father Heart disease Hypertension CAD (coronary artery disease) CVA (cerebral vascular accident) Myocardial infarction Surgical History History of tonsillectomy and adenoidectomy Social History household members: none housing: apartment number of children: 3 current occupational status: retired Smoking Status: Current every day smoker tobacco type: cigarettes quit status: not considering quitting alcohol intake: former year quit: 2022 details: Quit 08/2022, prior 12-15 beers daily. substance use type: marijuana Vital Signs Vital Signs Vital Signs: 02/26/24 13:29 02/26/24 14:48 02/26/24 16:30 Temperature 98.3 F Temperature Source Oral Pulse Rate 70 Pulse Strength Respiratory Rate 17 Respiratory Effort Normal Non-Labored Respiratory Depth Normal Respiratory Pattern Normal Blood Pressure 123/48 H Blood Pressure Mean 73 Blood Pressure Source Monitor Blood Pressure Position Semi-Fowlers Blood Pressure Location Right Arm Pulse Ox 96 95 Oxygen Delivery Method Room Air Room Air Room Air 02/26/24 17:25 02/26/24 20:00 02/26/24 21:35 Temperature 97.8 F 98.2 F Temperature Source Oral Oral Pulse Rate 74 72 Pulse Strength Respiratory Rate 17 18 Respiratory Effort Respiratory Depth Respiratory Pattern Blood Pressure 134/55 H 149/70 H Blood Pressure Mean 81 96 Blood Pressure Source Monitor Monitor Blood Pressure Position Semi-Fowlers Semi-Fowlers Blood Pressure Location Right Arm Right Arm Pulse Ox 95 93 93 Oxygen Delivery Method Room Air Room Air Room Air 02/26/24 21:35 02/26/24 22:00 02/26/24 22:00 Temperature 98.2 F Temperature Source Oral Pulse Rate 72 Pulse Strength Normal (2+) Respiratory Rate 18 Respiratory Effort Normal Non-Labored Respiratory Depth Normal Respiratory Pattern Normal Blood Pressure 149/70 H Blood Pressure Mean 96 Blood Pressure Source Monitor Blood Pressure Position Semi-Fowlers Blood Pressure Location Right Arm Pulse Ox 93 Oxygen Delivery Method Room Air Room Air 02/27/24 01:35 02/27/24 01:35 02/27/24 01:35 Temperature 98.3 F 98.3 F Temperature Source Oral Oral Pulse Rate 73 73 Pulse Strength Respiratory Rate 16 16 Respiratory Effort Normal Non-Labored Respiratory Depth Normal Respiratory Pattern Normal Blood Pressure 156/85 H 156/85 H Blood Pressure Mean 108 108 Blood Pressure Source Monitor Monitor Blood Pressure Position Semi-Fowlers Semi-Fowlers Blood Pressure Location Right Arm Right Arm Pulse Ox 98 98 Oxygen Delivery Method Room Air Room Air Room Air 02/27/24 05:35 02/27/24 05:35 02/27/24 07:40 Temperature 98.0 F 98.0 F Temperature Source Oral Oral Pulse Rate 73 73 Pulse Strength Respiratory Rate 18 18 Respiratory Effort Respiratory Depth Respiratory Pattern Blood Pressure 167/56 H 167/56 H Blood Pressure Mean 93 93 Blood Pressure Source Monitor Monitor Blood Pressure Position Semi-Fowlers Semi-Fowlers Blood Pressure Location Right Arm Right Arm Pulse Ox 94 94 92 Oxygen Delivery Method Room Air Room Air Room Air 02/27/24 09:35 02/27/24 09:35 02/27/24 09:35 Temperature 98.4 F Temperature Source Temporal Pulse Rate 84 Pulse Strength Normal (2+) Respiratory Rate 18 Respiratory Effort Normal Non-Labored Respiratory Depth Normal Respiratory Pattern Normal Blood Pressure 117/73 Blood Pressure Mean 87 Blood Pressure Source Monitor Blood Pressure Position Sitting Blood Pressure Location Left Arm Pulse Ox 95 Oxygen Delivery Method Room Air Room Air 02/27/24 09:35 Temperature 98.4 F Temperature Source Temporal Pulse Rate 84 Pulse Strength Respiratory Rate 18 Respiratory Effort Respiratory Depth Respiratory Pattern Blood Pressure 117/73 Blood Pressure Mean 87 Blood Pressure Source Monitor Blood Pressure Position Sitting Blood Pressure Location Left Arm Pulse Ox 95 Oxygen Delivery Method Room Air Weight Weight: 85.4 kg Body Mass Index (BMI) 29.5 NIHSS NIHSS Nursing Documentation NIHSS Nursing Documentation: NIHSS: Ischemic Stroke/TIA Start: 02/26/24 13:25 Text: For PCU Patients: NIH and Neuro Check every 4 Status: Active hours, PRN and with change in RN caregiver. Freq: QSHIFT Protocol: Activity Type Activity Date Activity User E-sign Co-sign Detail Recorded Client Recorded Date Recorded By Document 02/27/24 09:35 [id number] 02/27/24 11:26 02/27/24 09:35 NIH Stroke Scale [NIHSS] A score of 0 is normal or asymptomatic . Total possible score is 42. Inpatient: RN or Physician to activate a stroke alert for onset of new stroke symptoms or with NIHSS increase >/= 3 points. Following change in neurological status, NIHSS will be performed per physician order or more frequently PRN. -1a. Level of Consciousness Alert; keenly responsive -1b. LOC Questions Answers BOTH questions correctly. -1c. LOC Commands Performs both tasks correctly . -2. Best Gaze Normal -3. Visual Partial hemianopia -4. Facial Palsy Normal symmetrical movements -5a. Left Arm No drift; arm holds 90 (or 45 ) degrees for full 10 seconds -5b. Right Arm No drift; arm holds 90 (or 45 ) degrees for full 10 seconds -6a. Left Leg No drift; leg holds 30-degree position for full 5 seconds -6b. Right Leg No drift; leg holds 30-degree position for full 5 seconds -7. Limb Ataxia Absent -8. Sensory Normal; no sensory loss -9. Best Language No aphasia; normal -10. Dysarthria Normal -11. Extinction and Inattention No abnormality -Total 1 Query Text:A score of 0 is normal or asymptomatic. Total possible score is 42 . ED: Notify Physician for NIHSS increase by > / = 3 points. Inpatient: RN or Physician to activate a stroke alert for NIHSS increase of > / = 3 points. Coma Scale [Assess] -Eye Opening Spontaneous -Motor Obeys Commands -Verbal Oriented [Total] -Coma Scale Total 15 NIHSS 1a. Level of Consciousness: Alert; keenly responsive 1b. LOC Questions: Answers BOTH questions correctly. 1c. LOC Commands: Performs both tasks correctly. 2. Best Gaze: Normal 3. Visual: Complete hemianopia 4. Facial Palsy: Normal symmetrical movements 5a. Left Arm: No drift; arm holds 90 (or 45) degrees for full 10 seconds 5b. Right Arm: No drift; arm holds 90 (or 45) degrees for full 10 seconds 6a. Left Leg: No drift; leg holds 30-degree position for full 5 seconds 6b. Right Leg: No drift; leg holds 30-degree position for full 5 seconds 7. Limb Ataxia: Absent 8. Sensory: Normal; no sensory loss 9. Best Language: No aphasia; normal 10. Dysarthria: Normal 11. Extinction and Inattention: No abnormality Total: 2 Lab / Micro Data 02/27/24 04:40 02/27/24 04:40 Labs: Laboratory Results - last 24 hr 02/26/24 16:51: POC Glucose 169 H 02/27/24 00:10: Urine Color Yellow, Urine Clarity Clear, Urine pH 5.0, Ur Specific [place] 1.015, Urine Protein 15 H, Urine Glucose (UA) Normal, Urine Ketones Negative, Urine Occult Blood Negative, Urine Nitrite Negative, Urine Bilirubin Negative, Urine Urobilinogen Normal, Ur Leukocyte Esterase Negative, Urine RBC 0 SEEN, Urine WBC 0 SEEN, Ur Squamous Epith Cells 0 SEEN, Urine Bacteria 0 SEEN, Urine Mucus 0 SEEN 02/27/24 04:40: WBC 15.5 H, RBC 4.44 L, Hgb 13.5, Hct 37.8 L, MCV 85.1, MCH 30.4, MCHC 35.7, RDW Std Deviation 39.7, RDW Coeff of [place] 12.7, Plt Count 476 H, MPV 9.1, Immature Gran % (Auto) 0.500, Neut % (Auto) 62.4, Lymph % (Auto) 20.8, [place] % (Auto) 8.7, Eos % (Auto) 6.7 H, Baso % (Auto) 0.9, Absolute Neuts (auto) 9.7 H, Absolute Lymphs (auto) 3.22, Nucleated RBC % 0, Sodium 131 L, Potassium 3.5, Chloride 101, Carbon Dioxide 20.0 L, Anion Gap 10, BUN 37 H, Creatinine 1.65 H, Estim Creat Clear Calc 45.36, Est GFR (MDRD) Af Amer 54 L, Est GFR (MDRD) Non-Af 44 L, BUN/Creatinine Ratio 22.4 H, Glucose 137 H, Calcium 8.4 L, Total Bilirubin 0.80, AST 15, ALT 20, Alkaline Phosphatase 123 H, Total Protein 6.7, Albumin 3.6, Globulin 3.1, Albumin/Globulin Ratio 1.2, Triglycerides 151, Cholesterol 122, LDL Cholesterol 66, VLDL Cholesterol 30, HDL Cholesterol 26 L, TSH 0.886 02/27/24 06:27: POC Glucose 202 H 02/27/24 11:59: POC Glucose 156 H Imaging Radiology Impression Brain MRI 02/26/24 13:15 IMPRESSION: Moderate periventricular white matter ischemic changes Acute foci of ischemia within the right occipital lobe, left frontal parietal region, and left cerebellar hemispheres ingesting embolic disease. Clinical correlation recommended. Electronically Signed: Jhon Lagos MD at 16:41 EST , ADDENDUM: 02/26/24 1711 IMPRESSION: Moderate periventricular white matter ischemic changes Acute foci of ischemia within the right occipital lobe, left frontal parietal region, and left cerebellar hemispheres ingesting embolic disease. Clinical correlation recommended. N.B. : The above Results were Read Back by Jhon Lagos MD to Deedee Hare RN, and understanding confirmed on 02/26/2024 17:05:00 (ET). Electronically Signed: Jhon Lagos MD at 16:41 EST , Renal Ultrasound 02/26/24 13:25 IMPRESSION: Normal ultrasound of the kidneys and urinary bladder. Electronically Signed: Doni Quiroga MD at 14:13 EST , Active Medications Active Medications Active Medications: Current Medications Generic Name Dose Route Start Last Admin Trade Name Freq PRN Reason Stop Dose Admin Acetaminophen 650 mg 02/26/24 13:25 02/27/24 01:48 Acetaminophen 325 Mg Tablet PO 650 mg Q6H PRN PRN Administration Pain 1-10 Or Fever >100.7 Albuterol Sulfate 2.5 mg 02/26/24 13:25 Albuterol 2.5 Mg/3 Ml Vial.Neb. INHALATION Q2H PRN PRN SOB &/OR WHEEZING Aspirin 81 mg 02/27/24 08:00 02/27/24 10:25 Aspirin 81 Mg Tab.Chew PO 81 mg BREAKFAST ALLI Administration Atorvastatin Calcium 80 mg 02/26/24 22:00 02/26/24 21:57 Atorvastatin Calcium 80 Mg Tablet PO 80 mg QHS ALLI Administration Glucagon 1 mg 02/26/24 13:25 Glucagon 1 Mg/Ml Syringe IM X1 PRN HYPOGLYCEMIA Protocol Hydralazine HCl 5 mg 02/26/24 13:25 Hydralazine 20 Mg/Ml Vial IV 02/27/24 13:25 Q30M PRN maintain BP parameters with HR <60 Dextrose 250 mls @ 0 mls/hr 02/26/24 13:25 Dextrose 10%-Water IV .Q0M PRN HYPOGLYCEMIA Protocol As Directed Sodium Chloride 500 mls @ 15 mls/hr 02/26/24 13:49 IV .[id number] PRN Saline Flush Sodium Chloride 500 mls @ 15 mls/hr 02/26/24 13:49 IV .[id number] PRN Additional IVPB Infusion Insulin Human Lispro 0 unit 02/26/24 16:00 02/27/24 12:11 Insulin Lispro 100 Unit/Ml Insuln.Pen SC Not Given TIDAC ALLI Protocol Labetalol HCl 10 - 20 mg 02/26/24 13:25 Labetalol (Prefilled) 20 Mg/4 Ml Vial IV 02/27/24 13:25 Q10M PRN PRN maintain BP parameters with HR >/=60 Melatonin 3 mg 02/26/24 13:25 Melatonin 3 Mg Tablet PO QHS PRN PRN INSOMNIA Nicotine 21 mg 02/27/24 10:00 02/27/24 10:25 Nicotine 21 Mg Patch TD 21 mg DAILY ALLI Administration Ondansetron HCl 4 mg 02/26/24 13:25 Ondansetron 4 Mg/2 Ml Vial IV Q8H PRN PRN NAUSEA/VOMITING Pregabalin 50 mg 02/26/24 22:00 02/27/24 10:25 Pregabalin 50 Mg Capsule PO 50 mg BID ALLI Administration Senna/Docusate Sodium 2 tablet 02/26/24 13:25 Senna/Docusate Sodium 1 Tablet PO BID PRN PRN Constipation Sodium Chloride 10 - 40 ml 02/26/24 13:49 02/26/24 16:54 0.9% Saline Lock 10 Ml Syringe IV 10 ml UD PRN Administration SALINE FLUSH
[2024-02-27 14:17] LABS: Pathologist Review Reviewed
--- NOTE | 2024-02-27 16:09 | CHAPLAIN ---
Type of Pastoral Visit ___ Initial Visit _x__ Follow-up Visit ___ On-call Visit ___ General Patient Visit ___ Spiritual Assessment ___ Family Conference ___ Bereavement ___ Rapid Response ___ Code Blue ___ Other (describe below) Pastoral Care Referral From _x__ Patient ___ Family ___ Nurse ___ Physician ___ [employer]ages Platemaker ___ Roll Bucker ___ Other (describe below) Sacrament/Intervention _x__ Active listening ___ Anointing ___ Orthodoxy ___ Bereavement ___ Communion ___ Harelen exploration ___ ___ Life review ___ Prayer ___ Reconciliation ___ Sacrament of Sick _x__ Supportive presence ___ Wedding ___ Other (describe below) Pastoral Comments follow up to patient that was in a stroke alert yesterday; pt is feeling better and expects to be discharged soon; pt states what has been happening and that he was scared; offered presence and listening ear; pt declined any other needs at this time
--- NOTE | 2024-02-27 16:13 | DCINST_ITS ---
Discharge Instructions Diet Discharge Diet: - (DASH diet) Activity Discharge Activity: May Not Drive Follow Up Care Test Results: Test results from this visit will be discussed in further detail at your follow- up appointment, if applicable. Discharge Plan Admission Admit Date/Time: 02/26/24 13:00 Primary Reason for Your Visit: Decreased left sided vision Attending Provider: Karmen Chew Primary Care Provider: Cecilia العلي NP Consulting Providers: Rod Melendez; Bonifacio Romero; Anabel Small; Soha Lr; Aretha Michaels; Montrell Patel; Hillary Garcia; Taran Lindsey; Hunter Kirby; Cayetano Salmeron; Lashonda Phillip; Yonas Cortez; Antonia Roberto; Melisa Short; Aniket Christopher; Benigno Valdez; Kate Ball; Arnaldo Carranza; Slime Desouza; Maura Hampton Instructions Patient Instructions: Discharge Instructions for Stroke Additional Instructions / Restrictions: DISCHARGE INSTRUCTIONS PLEASE READ *Please take this with you to your next doctors appointment* -Please follow-up with neurology upon discharge, please call Dr. Saxena's office upon discharge to schedule an appointment to establish care for your multiple strokes (ph [phone]) -You will be discharged with instructions for a 30-day heart monitor to evaluate for any underlying abnormal heart rhythms -It is advised to take 80 mg of atorvastatin at home, this had been cut in half by your primary care provider, please discuss this at your next appointment -Would recommend lab work (BMP) to check your kidney function in 2 to 3 days through your primary care physician's office. Please call their office upon discharge to obtain order for lab work. -Please follow-up with vascular doctor upon discharge due to the narrowing of the arteries in your neck. Please call their office on discharge to schedule an appointment to establish care -Please call your primary care provider's office upon discharge to schedule a hospital follow up within 1 week. -For any concerning signs or symptoms please call 911 or proceed to the nearest emergency department Discharge Orders/Prescriptions Prescriptions: Continued albuterol sulfate 2.5 mg /3 mL (0.083 %) solution for nebulization 2.5 mg inhalation Q6H atorvastatin 80 mg tablet 40 mg PO QHS pregabalin 150 mg capsule 150 mg PO TID clonidine HCl 0.2 mg tablet 0.2 mg PO BID metformin 500 mg tablet extended release 24 hr 1,000 mg PO DAILY amlodipine 5 mg Tablet 5 mg PO DAILY 90 Days Qty: 90 0RF aspirin 81 mg Tablet,Chewable 81 mg PO BREAKFAST 90 Days Qty: 90 0RF Other Ambulatory Orders: 30 Day Event Recorder Preventi (Urgent) Timeframe: 1 Day Facility: [facility] - Location: Cardiovascular Services Ordered By: Dr. Karmen Chew Referrals / Follow Up: Larry Crum MD [Med Staff - Active Staff] - Aureliano Saxnea MD [Non-Staff -Ordering Privileges] - Cecilia العلي NP, RADIOLOGY EQUIPMENT SERVICER-C [Primary Care Provider] - Within 1 Week Disposition Disposition (needs filled in before D/C Order can be placed): Home, Self Care
--- NOTE | 2024-02-27 16:18 | DS.PCM_ITS ---
Providers Date of Admission: 02/26/24 Date of Discharge: 02/27/24 Primary Care Physician: JANINE Bradshaw Consultations 02/26/24 13:25 Consult: Tele-Neurology Routine Consulting Provider: [facility] Reason for Consult: Acute Ischemic Stroke/TIA EMERGENT Consult: No MD Notified: Yes Date Notified: 02/26/24 Time Notified: 13:52 Method of Notification: Answering Service Nursing Unit Staff Notify [facility] of Tele-Neurology Consult: Yes Reason For Visit: CVA, VERONICA Diagnosis Discharge Diagnosis (1) Acute renal failure: Status: Acute Code(s): N17.9 - Acute kidney failure, unspecified Plan # Left visual field deficit with acute infarcts involving posterior medial right occipital lobe, left frontal parietal region, and left cerebellar hemispheres # VERONICA 2/2 volume depletion 2/2 n/v # Nausea and vomiting # Hyponatremia # Leukocytosis #Type 2 diabetes mellitus #Hypertension #Hypokalemia #Tobacco use Medications at Discharge Home Medications amlodipine 5 mg tablet 5 mg PO DAILY blood pressure 90 days #90 tabs 10/18/23 aspirin 81 mg chewable tablet 81 mg PO BREAKFAST [facility] 90 days #90 tabs 10/18/23 albuterol sulfate 2.5 mg/3 mL (0.083 %) solution for nebulization 2.5 mg inhalation Q6H 11/20/23 atorvastatin 80 mg tablet 40 mg PO QHS cholesterol 11/20/23 clonidine HCl 0.2 mg tablet 0.2 mg PO BID blood pressure 11/20/23 metformin 500 mg tablet,extended release 24 hr 1,000 mg PO DAILY diabetes 11/20/23 pregabalin 150 mg capsule 150 mg PO TID nerve pain 11/20/23 Hospital Course Summary of Care Provided Minutes Spent on Discharge: 34 Hospital Course: Per HPI: KIM SUN, is a 68-year-old male history of left MCA stroke in September of this year, diabetes, COPD, tobacco use, hypertension who presented to [facility] ED 02/26/2024 with loss of left-sided vision while watching TV last evening at 10 PM. Additionally was ill on Sunday with profuse nausea and vomiting 30 times. In the ED patient found to have acute infarct involving posterior medial right occipital lobe patient also had significant VERONICA with creatinine up to 3.94. Hospitalist contacted for admission for further stroke workup and VERONICA. Patient evaluated bedside with daughter present. Patient reports that all weekend he had significant nausea and vomiting as well as some left-sided back pain and felt like he was dying , no abdominal pain, no GI changes, no urinary complaints but felt very very ill however it is since resolved and is no longer feeling nauseous but has had poor p.o. over the past couple of days in addition and feels generally unwell. But primarily brought him in is a left-sided visual field defects that he noticed last night at 10 PM when he could not see the left side of the TV and he reports this has persisted. Intermittently still has some left-sided back pain but this is not a main complaint. Not presently nauseous, was able to eat earlier without significant difficulty. No chest pain or shortness of breath, no headache, no numbness, weakness, tingling, problems with speech or other new or acute complaints. INTERVAL HISTORY: MRI resulted and demonstrated acute infarcts involving posterior medial right occipital lobe, left frontal parietal region, and left cerebellar hemispheres suggesting embolic disease so echo ordered. Patient also evaluated by neurology who recommended continuing aspirin and statin and an event monitor on discharge. On day of discharge patient feeling much better, reports his vision seems to be returning the still has some deficit, no difficulty ambulating or no focal complaints other than vision and has no new or acute complaints. Kidney function markedly improved with IV hydration. Query if his nausea and vomiting was due to cerebellar component of stroke or some kind of gastroenteritis but this patient is no longer symptomatic and improving with fluids the treatment is the same. All questions answered at bedside. Discharge instructions as followed: DISCHARGE INSTRUCTIONS PLEASE READ *Please take this with you to your next doctors appointment* -Please follow-up with neurology upon discharge, please call Dr. Saxena's office upon discharge to schedule an appointment to establish care for your multiple strokes (ph [phone]) -You will be discharged with instructions for a 30-day heart monitor to evaluate for any underlying abnormal heart rhythms -It is advised to take 80 mg of atorvastatin at home, this had been cut in half by your primary care provider, please discuss this at your next appointment -Would recommend lab work (BMP) to check your kidney function in 2 to 3 days through your primary care physician's office. Please call their office upon discharge to obtain order for lab work. -Please follow-up with vascular doctor upon discharge due to the narrowing of the arteries in your neck. Please call their office on discharge to schedule an appointment to establish care -Please call your primary care provider's office upon discharge to schedule a hospital follow up within 1 week. -For any concerning signs or symptoms please call 911 or proceed to the nearest emergency department Physical Exam Narrative General: Alert, oriented, no apparent distress HEENT: Atraumatic, normocephalic Eyes: Anicteric, normal conjunctiva, extraocular movements intact, pupils equal, still has decreased visual deficit on left side Neck: Supple Respiratory: Clear to auscultation bilaterally, normal respiratory effort Cardiovascular: Regular rate and rhythm GI: Soft, nontender, nondistended Extremities: No edema Musculoskeletal: Strength 5 out of 5 in right upper extremity, 5 out of 5 left upper extremity, 5 out of 5 right lower extremity, 5 out of 5 left lower extremity Neuro: No overt focal neurological deficits aside from visual field deficit, cranial nerves II through XII intact, [id number] without significant difficulty bilaterally Skin: No rashes appreciated Psych: Cooperative Weight / BMI Weight Weight: 85.4 kg Body Mass Index (BMI) 29.5 ABG / Lab / Microbiology Data 02/27/24 04:40 02/27/24 04:40 Laboratory: Laboratory Results - last 24 hr 02/26/24 12:03: Diff Path Review Reviewed 02/26/24 16:51: POC Glucose 169 H 02/27/24 00:10: Urine Color Yellow, Urine Clarity Clear, Urine pH 5.0, Ur Specific [place] 1.015, Urine Protein 15 H, Urine Glucose (UA) Normal, Urine Ketones Negative, Urine Occult Blood Negative, Urine Nitrite Negative, Urine Bilirubin Negative, Urine Urobilinogen Normal, Ur Leukocyte Esterase Negative, Urine RBC 0 SEEN, Urine WBC 0 SEEN, Ur Squamous Epith Cells 0 SEEN, Urine Bacteria 0 SEEN, Urine Mucus 0 SEEN 02/27/24 04:40: WBC 15.5 H, RBC 4.44 L, Hgb 13.5, Hct 37.8 L, MCV 85.1, MCH 30.4, MCHC 35.7, RDW Std Deviation 39.7, RDW Coeff of Katherine 12.7, Plt Count 476 H, MPV 9.1, Immature Gran % (Auto) 0.500, Neut % (Auto) 62.4, Lymph % (Auto) 20.8, [place] % (Auto) 8.7, Eos % (Auto) 6.7 H, Baso % (Auto) 0.9, Absolute Neuts (auto) 9.7 H, Absolute Lymphs (auto) 3.22, Nucleated RBC % 0, Sodium 131 L, Potassium 3.5, Chloride 101, Carbon Dioxide 20.0 L, Anion Gap 10, BUN 37 H, Creatinine 1.65 H, Estim Creat Clear Calc 45.36, Est GFR (MDRD) Af Amer 54 L, Est GFR (MDRD) Non-Af 44 L, BUN/Creatinine Ratio 22.4 H, Glucose 137 H, Calcium 8.4 L, Total Bilirubin 0.80, AST 15, ALT 20, Alkaline Phosphatase 123 H, Total Protein 6.7, Albumin 3.6, Globulin 3.1, Albumin/Globulin Ratio 1.2, Triglycerides 151, Cholesterol 122, LDL Cholesterol 66, VLDL Cholesterol 30, HDL Cholesterol 26 L, TSH 0.886 02/27/24 06:27: POC Glucose 202 H 02/27/24 11:59: POC Glucose 156 H Radiography Diagnostic Testing: Radiology Impression Brain MRI 02/26/24 13:15 IMPRESSION: Moderate periventricular white matter ischemic changes Acute foci of ischemia within the right occipital lobe, left frontal parietal region, and left cerebellar hemispheres ingesting embolic disease. Clinical correlation recommended. Electronically Signed: Jhon Lagos MD at 16:41 EST , ADDENDUM: 02/26/24 1711 IMPRESSION: Moderate periventricular white matter ischemic changes Acute foci of ischemia within the right occipital lobe, left frontal parietal region, and left cerebellar hemispheres ingesting embolic disease. Clinical correlation recommended. N.B. : The above Results were Read Back by Jhon Lagos MD to Deedee Hare RN, and understanding confirmed on 02/26/2024 17:05:00 (ET). Electronically Signed: Jhon Lagos MD at 16:41 EST , Echocardiogram 02/26/24 16:51 Interpretation Summary Normal LV size. Left ventricular systolic function is normal. The left ventricular ejection fraction is 60 %. Mild focal aortic valve calcification. Contrast injection was performed. Ordering Physician: Karmen Chew Performed By: Karmen Hess RDCS D/C Instructions Discharge Diet: - (DASH diet) DC O2, CPAP, BIPAP Needs Additional Home O2 Discharge instructions: No DC home with Oxygen: No Meaningful Use Info Meaningful Use Meaningful Use Diagnoses (Choose all that apply): None applicable Ischemic Stroke Statin Dosing Therapy Reference: STATIN DOSE THERAPY REFERENCE: * Patients > 75 years receive moderate or high dose statin therapy. * Patients 75 years or YOUNGER should receive HIGH intensity statin dose unless contraindicated. You will be required to document reason for non-treatment if statin daily dose does not meet guidelines. HIGH DOSE STATIN THERAPY DAILY Atorvastatin > than or = to 40 mg Rosuvastatin > than or = to 20 mg Amlodipine + Atorvastatin > than or = to 2.5/40 mg Ezetimibe + Simvastatin 10/80 mg Simvastatin 80mg Discharge Plan Admission Admit Date/Time: 02/26/24 13:00 Primary Reason for Your Visit: Decreased left sided vision Attending Provider: Karmen Chew Primary Care Provider: Cecilia العلي EXECUTIVE MEETING MANAGER Consulting Providers: Rod Melendez; Bonifacio Romero; Anabel Small; oSha Lr; Aretha Michaels; Montrell Patel; Hillary Garcia; Taran Lindsey; Hunter Kirby; Cayetano Salmeron; Lashonda Phillip; Yonas Cortez; Antonia Roberto; Melisa Short; Aniket Christopher; Benigno Valdez; Kate Ball; Arnaldo Carranza; Slime Desouza; Maura Hampton Instructions Patient Instructions: Discharge Instructions for Stroke Additional Instructions / Restrictions: DISCHARGE INSTRUCTIONS PLEASE READ *Please take this with you to your next doctors appointment* -Please follow-up with neurology upon discharge, please call Dr. Saxena's office upon discharge to schedule an appointment to establish care for your multiple strokes (ph [phone]) -You will be discharged with instructions for a 30-day heart monitor to evaluate for any underlying abnormal heart rhythms -It is advised to take 80 mg of atorvastatin at home, this had been cut in half by your primary care provider, please discuss this at your next appointment -Would recommend lab work (BMP) to check your kidney function in 2 to 3 days through your primary care physician's office. Please call their office upon discharge to obtain order for lab work. -Please follow-up with vascular doctor upon discharge due to the narrowing of the arteries in your neck. Please call their office on discharge to schedule an appointment to establish care -Please call your primary care provider's office upon discharge to schedule a hospital follow up within 1 week. -For any concerning signs or symptoms please call 911 or proceed to the nearest emergency department Discharge Orders/Prescriptions Prescriptions: Continued albuterol sulfate 2.5 mg /3 mL (0.083 %) solution for nebulization 2.5 mg inhalation Q6H atorvastatin 80 mg tablet 40 mg PO QHS pregabalin 150 mg capsule 150 mg PO TID clonidine HCl 0.2 mg tablet 0.2 mg PO BID metformin 500 mg tablet extended release 24 hr 1,000 mg PO DAILY amlodipine 5 mg Tablet 5 mg PO DAILY 90 Days Qty: 90 0RF aspirin 81 mg Tablet,Chewable 81 mg PO BREAKFAST 90 Days Qty: 90 0RF Other Ambulatory Orders: 30 Day Event Recorder Preventi (Urgent) Timeframe: 1 Day Facility: [facility] - Location: Cardiovascular Services Ordered By: Dr. Karmen Chew Referrals / Follow Up: Larry Crum MD [Med Staff - Active Staff] - Aureliano Saxena MD [Non-Staff -Ordering Privileges] - Cecilia العلي NP, EXECUTIVE MEETING MANAGER-C [Primary Care Provider] - Within 1 Week Disposition Disposition (needs filled in before D/C Order can be placed): Home, Self Care Charges/Coding Visit Charges Inpatient E&M: 29843 Disch Hosp >30min
--- NOTE | 2024-02-27 16:22 | CASEMGMT ---
Patient has order for discharge. RN CM in to discuss needs at discharge. Patient denies needs or help at discharge. Patient had no further questions or concerns.
[2024-02-27 16:29] VITALS: BP 180/64; PULSE 78; RESP 16; TEMP 36.9; O2SAT 98
== END 2024-02-27 16:54 | disposition home or self-care (01) | DRG 682 ==
LOC: ED 12:46 → PCU 13:05
PROVIDERS: Admitting Provider Internal Medicine; Emergency Provider Emergency Medicine; PCP Nurse Practitioner Family; Visit Provider Internal Medicine
DX: N17.9 Acute kidney failure, unspecified (principal); I63.531 Cerebral infarction due to unspecified occlusion or stenosis of right posterior cerebral artery; E87.1 Hypo-osmolality and hyponatremia; I27.23 Pulmonary hypertension due to lung diseases and hypoxia; J44.9 Chronic obstructive pulmonary disease, unspecified; E11.22 Type 2 diabetes mellitus with diabetic chronic kidney disease; I12.9 Hypertensive chronic kidney disease with stage 1 through stage 4 chronic kidney disease, or unspecified chronic kidney disease; N18.9 Chronic kidney disease, unspecified; E86.0 Dehydration; H53.462 Homonymous bilateral field defects, left side; E78.5 Hyperlipidemia, unspecified; M48.02 Spinal stenosis, cervical region; K52.9 Noninfective gastroenteritis and colitis, unspecified; F17.210 Nicotine dependence, cigarettes, uncomplicated; E87.6 Hypokalemia; M54.9 Dorsalgia, unspecified; Z79.84 Long term (current) use of oral hypoglycemic drugs; Z79.82 Long term (current) use of aspirin; Z86.73 Personal history of transient ischemic attack (TIA), and cerebral infarction without residual deficits
CPT/HCPCS: 36415; 70450; 70496; 70498; 70551; 71045; 76770; 80048; 80053; 80061; 81001; 82962; 84443; 84484; 85025; 85610; 85730; 92507; 93005; 93308; 94762; 97162; 97166; 97535; 99285; J7030; Q9957; Q9967; A4216; C8924

== ENCOUNTER → 2024-02-29 | Outpatient (CLI) | payer MEDICARE, MEDICAID, SELFPAY ==
[2024-02-29 09:34] LABS: Hematocrit 37.7 % (40-54); Hemoglobin 13.5 g/dL (13.0-16.5); Mean Corp Hgb Conc 35.8 g/dL (32-36); Mean Corpuscular Hgb 30.4 pg (27.0-32.0); Mean Corpuscular Volume 84.9 fL (80-94); Platelet Count 508 K/mm3 (150-450); RBC Distribution Width CV 12.7 % (11.6-14.6); RBC Distribution Width SD 39.3 fl (35.1-43.9); Red Blood Count 4.44 M/mm3 (4.6-6.2); White Blood Count 15.1 K/mm3 (4.4-11.0)
[2024-02-29 09:37] LABS: Hemoglobin A1c 6.7 % (3.8-5.6)
[2024-02-29 09:44] LABS: ALB/GLOB Ratio 1.1 RATIO (0.9-2.4); AST(SGOT) 11 U/L (15-37); Alanine Aminotransfer ALT/SGPT 16 U/L (16-61); Albumin, Serum 3.8 g/dL (3.2-5.0); Alkaline Phosphatase 107 U/L (45-117); Anion Gap 7 (5-15); BUN 15 mg/dL (7-18); BUN/Creat Ratio 16.3 RATIO (10-20); Calcium,Total 9.2 mg/dL (8.5-10.1); Chloride 100 mmol/L (98-107); Cholesterol 126 mg/dL (200); Creatinine, Serum 0.92 mg/dL (0.70-1.30); EST Glomerular Filtration Rate 87 mL/min (>60); Est Glom Filt Rate - Afr Amer 105 mL/min (>60); Globulin 3.4 g/dL (2.2-4.2); Glucose 137 mg/dL (74-106); High Density Lipoprotein 29 mg/dL; Potassium 3.5 mmol/L (3.5-5.1); Protein, Total 7.2 g/dL (6.4-8.2); Sodium Level 132 mmol/L (136-145); Triglycerides 135 mg/dL; Very Low Density Lipoprotein 27 mg/dL (5-40)
== END | disposition home or self-care (01) ==
PROVIDERS: PCP Nurse Practitioner Family; Referring Provider Nurse Practitioner Family; Visit Provider Nurse Practitioner Family
DX: N19 Unspecified kidney failure (principal); R73.03 Prediabetes; E78.5 Hyperlipidemia, unspecified
CPT/HCPCS: 36415; 80053; 80061; 83036; 85027

== ENCOUNTER 2024-04-11 12:29 | Outpatient (CLI) | payer MEDICARE, MEDICAID, SELFPAY ==
--- NOTE | 2024-04-11 12:34 | STEWCON_ITS ---
Reason For Study: Pre-Op Stress Results Protocol: Dobutamine Stress Echo With Definity Maximum Predicted HR: 153 bpm Target HR: 130 bpm % Maximum Predicted HR: 86 % DurationHeart Rate Stage (mm:ss) (bpm) BP Comment Baseline 67 130/84No Chest Pain; 4 ML Diluted Definity Dobutamine 10 MCG 3:39 90 191/84No Chest Pain Dobutamine 20 MCG 3:00 99 192/64No Chest Pain Dobutamine 30 MCG 3:00 114 184/62No Chest Pain Dobutamine 40 MCG 2:48 131 156/70No Chest Pain Recovery 85 140/74No Chest Pain Stress Duration: 12:27 mm:ss Maximum Stress HR: 131 bpm METS: 1 Baseline Echocardiogram Findings Stress Echo Wall motion Data Resting WM Intermediate WM Stress WM ECHO/Stress Test Echo W/Contrast Interpretation Summary Dobutamine stress echocardiogram. 68-year-old man for preoperative evaluation. Resting EKG demonstrates sinus rhythm with a rate of 67 bpm. Resting blood pres sure is 130/84 mmHg. Dobutamine was infused starting at 10 mcg/kg/min increasing in 10 mg aliquots t o a peak of 40 mcg/kg/min. The maximal heart rate attained was 131 bpm which was 85% of max im pacted heart rate the maximum workload was 1 metabolic equivalent. At rest there were no ST or T wave changes noted suggest ischemia and at peak infusion no ST or T wave changes were noted to sug gest ischemia. No clinical angina was noted and no significant arrhythmias were present. The peak blood pressure was 202/78 mmHg reflecting adequate blood pressure augmentation with dobutamine inf usion. Stress echocardiogram. The resting echocardiographic evaluation demonstrated an ejection fraction of 60% with no wall motion abnormalities present. This was performed with Definity enhancement. At a low dose and with peak there was improvement in left ventricular ejection fract ion with peaking of ejection fraction approximately 75% with no wall motion abnormalities present. Conclusion: Dobutamine stress echocardiogram with no evidence of ischemia. Preserved ejection fraction Ordering Physician: Larry Crum Referring Physician: Larry Crum Performed By: Eve Angelo, LORY, RVT
== END 2024-04-11 23:59 | disposition home or self-care (01) ==
LOC: CVS 12:31
PROVIDERS: PCP Nurse Practitioner Family; Referring Provider Surgery Trauma Surgery; Visit Provider Surgery Trauma Surgery
DX: Z01.810 Encounter for preprocedural cardiovascular examination (principal); I63.232 Cerebral infarction due to unspecified occlusion or stenosis of left carotid arteries
CPT/HCPCS: 93017; 93350; Q9957; A4216; C8928

== ENCOUNTER 2024-04-15 13:51 | Inpatient (IN) | payer MEDICARE, MEDICAID, SELFPAY ==
--- NOTE | 2024-03-28 08:09 | PAT.ANE_ITS ---
Pre-Assessment Diagnosis/Proposed Procedure Planned Operative Procedure(s): (L) Carotidstent, TCAR, Combining Machine Operator, Anes, FILTER TANK TENDER HELPER HEAD, OR Staff Anesthesia History Anesthesia History - business development sales executive: Anesthesia History - business development sales executive Hx Hospitalization Yes: STROKE 02/27/24 03/27/24 14:13 Any Problems With Anesthesia No 03/27/24 14:13 Cholinesterase deficiency No 03/27/24 14:13 You/Your Family Experience No 03/27/24 14:13 fever (hyperthermia) with Relationship Recent Exposure to Contagious Disease Does patient have nerve No 03/27/24 14:13 stimulator Patient instructed to have device shut off --Does patient have Pacemaker or ICD? When Was Last Pacemaker Check QUESTION #4 FULL TEXT: You/Your Family Experience fever (hyperthermia) with Anesthesia Last Oral Intake Last Oral intake: Last Oral Intake NPO since Meds taken in AM with sips of water? Meds patient instructed to take am of surgery PONV PONV - business development sales executive: PONV - business development sales executive Female Yes 03/27/24 14:13 HX of Motion Sickness No 03/27/24 14:13 HX of N/V After Surgery No 03/27/24 14:13 Non-Smoker No 03/27/24 14:13 Duration of Surgery greater Yes 03/27/24 14:13 than 60 minutes Number of Risk Factors 2 03/27/24 14:13 PONV Score Moderate Risk 03/27/24 14:13 Height & Weight Height & Weight: Anesthesia: Height & Weight Height 5 ft 7 in 03/21/24 11:02 Respiratory Assessment Respiratory Assessment - business development sales executive: Respiratory Tract Infection Hx - business development sales executive Hx Respiratory Tract Infection No 03/27/24 14:13 STOP Sleep Apnea STOP Sleep Apnea - business development sales executive: STOP Sleep Apnea - business development sales executive Hx Hypertension Yes: CONTROLLED WITH MED 03/27/24 14:13 Hx Sleep Apnea No 03/27/24 14:13 CPAP BIPAP Do you snore loudly (louder No 03/27/24 14:13 than talking or can be heard Do you often feel tired/ No 03/27/24 14:13 fatigued/ sleepy during daytime? Has anyone observed you stop No 03/27/24 14:13 breathing during sleep? STOP Results Negative 03/27/24 14:13 QUESTION #5 FULL TEXT : Do you snore loudly (louder than talking or can be heard through closed doors)? Tobacco Use History Tobacco Use History - business development sales executive: Tobacco Use History - business development sales executive Tobacco Use Cigarettes 02/27/24 09:35 Smoking Status Current every day smoker 03/27/24 14:13 Hx Tobacco Use Yes 03/27/24 14:13 Years Smoking Packs Smoked per Day 0.5 03/27/24 14:13 Smoking Cessation Date was within the last 15 years Hx Smoking Cessation Date Hx Smoking Cessation No 03/27/24 14:13 Counseling Hematologic Medial History Hematologic Hx - business development sales executive: Hematologic Medical Hx - marketing team lead Hx of Blood Transfusion No 03/27/24 14:13 Hx of Transfusion in last 3 No 03/27/24 14:13 Months Date of Last Transfusion (if within last 3 months) Ever experience any problems No 03/27/24 14:13 with transfusion(s)? Specify any problems Hx of Preganancy in last 3 N/A 03/27/24 14:13 Months Nurse Filling Out Transfusion NBUCHER 03/27/24 14:13 & Questions: Date: 03/27/24 03/27/24 14:13 Time: 14:15 03/27/24 14:13 Patient unable to answer at this time (ie. confused, unrespo /Reproduction History /Reproductive History - business development sales executive: /Reproductive Hx- business development sales executive Hx Now No 03/27/24 14:13 Gestational Age (in weeks): EDC: Hx Hx Para Hx Section SAB No 03/27/24 14:13 PFS Medical History (Updated 03/27/24 @ 14:19 by Gisel Ibarra) Wears dentures Depression Marijuana use High cholesterol Stroke/cerebrovascular accident Smoker History of Holter monitoring History of echocardiogram Arteriosclerosis of both carotid arteries Arthritis Aortic valve, bicuspid COPD (chronic obstructive pulmonary disease) Pulmonary hypertension Aortic stenosis Acute ischemic left MCA stroke Diabetes mellitus, type 2 History of alcohol abuse Cannabis use disorder HLD (hyperlipidemia) History of CVA (cerebrovascular accident) Hypertension Home Medications ?Medication ?Instructions ?Recorded ?Last Taken ?Type aspirin 81 mg chewable tablet 81 mg PO BREAKFAST [facility] 90 10/18/23 Unknown Rx days #90 tabs albuterol sulfate 2.5 mg/3 mL 2.5 mg inhalation Q6H PRN 11/20/23 Unknown History (0.083 %) solution for nebulization shortness of breath or wheezing clonidine HCl 0.2 mg tablet 0.2 mg PO BID blood pressure 11/20/23 Unknown History metformin 500 mg tablet,extended 1,000 mg PO DAILY diabetes 11/20/23 Unknown History release 24 hr pregabalin 150 mg capsule 150 mg PO TID nerve pain 11/20/23 Unknown History amlodipine 5 mg tablet 10 mg PO DAILY blood pressure 03/20/24 Unknown History atorvastatin 80 mg tablet 80 mg PO QHS cholesterol 03/20/24 Unknown History bupropion HCl 100 mg tablet,12 hr 150 mg PO BID DEPRESSION 03/20/24 Unknown History sustained-release (Wellbutrin SR) clopidogrel 75 mg tablet (Plavix) 75 mg PO DAILY BLOOD THINNER #60 03/20/24 Unknown Rx tabs losartan 50 mg-hydrochlorothiazide 1 tab PO QDAY HTN 03/20/24 Unknown History 12.5 mg tablet Allergy/AdvReac Type Severity Reaction Status Date / Time No Known Allergies Allergy Verified 03/27/24 14:09 Family History Mother Breast cancer Diabetes Father Heart disease Hypertension CAD (coronary artery disease) CVA (cerebral vascular accident) Myocardial infarction Surgical History History of tonsillectomy and adenoidectomy Social History household members: none housing: apartment number of children: 3 current occupational status: retired Smoking Status: Current every day smoker tobacco type: cigarettes quit status: not considering quitting alcohol intake: former year quit: 2022 details: Quit 08/2022, prior 12-15 beers daily. substance use type: marijuana caffeine: Yes (On avg 3 cups coffee daily) Type: coffee Audit: Pertinent Findings Pertinent Findings EKG Perinent findings: 02/27/2024 normal sinus rhythm 72 bpm cannot rule out anterior infarct age undetermined Echo (EF%) pertinent findings: 02/27/2024 normal systolic function EF 60% Pulmonary function results/spirometer pertinent findings: Chest x-ray normal 02/26/2024 Additional pertinent findings: Elevated white count noted by surgeon Recommendation Anesthesia Recommendation Anesthesia recommendation: OPTIMIZED for anesthesia
[2024-04-15] VITALS (21 sets, daily range): BP systolic 142–188; BP diastolic 51–105; PULSE 63–87; RESP 16–18; TEMP 36.1–36.9; O2SAT 92–99; BMI 28.3; BMI 28.4
[2024-04-15] MEDS: 0.9% Normal Saline (1000mL) 1,000 ML 15 ML IV (10:02)
--- NOTE | 2024-04-15 10:35 | PCM.PRE.AN2 ---
ASA Classification* ASA Classification ASA Classification: 3 Assessment & Plan Anesthesia* Anesthesia Assessment Anesthesia Assessment: Discussed sedation and/or anesthesia options, risks, benefits, and alternatives with patient/parents/legal guardian/POA. Questions invited. The patient/parents/legal guardian/POA seems to understand and agrees to proceed with anesthesia plan. Reviewed the physical assessment, medical history, allergy history and patient home medications list prior to surgery/procedure/anesthetic and documented any changes. Performed airway and anesthesia risk assessments. Anesthesia Type Anesthesia Type: General History Source History Obtained from:: Patient and Chart Anesthesia Focused Assessment* Temperature: 97.7 F Pulse Rate: 77 Blood Pressure: 182/67 Respiratory Rate: 16 Pulse Ox: 97 Oxygen Delivery Method: Room Air Airway Assessment Mouth opens: >3 cm Mallampati Score: IV Teeth Condition: Dentures (Upper dentures.) and Missing (Patient is edentulous.) Neck Range of motion (ROM): Limited ROM (Somewhat decreased extension) Focused Labs Anesthesia Preop lab: CBC WBC 15.1 K/mm3 (4.4-11.0) H 02/29/24 08:46 RBC 4.44 M/mm3 (4.6-6.2) L 02/29/24 08:46 Hgb 13.5 g/dL (13.0-16.5) 02/29/24 08:46 Hct 37.7 % (40-54) L 02/29/24 08:46 Plt Count 508 K/mm3 (150-450) H 02/29/24 08:46 CHEMISTRY Potassium 3.5 mmol/L (3.5-5.1) 02/29/24 08:46 Sodium 132 mmol/L (136-145) L 02/29/24 08:46 Magnesium 2.4 mg/dL (1.6-2.6) 10/18/23 06:10 Phosphorus 2.8 mg/dL (2.5-4.9) 10/17/23 18:16 BUN 15 mg/dL (7-18) 02/29/24 08:46 Creatinine 0.92 mg/dL (0.70-1.30) 02/29/24 08:46 Glucose 137 mg/dL (74-106) H 02/29/24 08:46 POC Glucose 139 mg/dL (74-106) H 04/15/24 09:59 TSH 0.886 uIU/mL (0.358-3.740) 02/27/24 04:40 COAG PT 12.8 SECONDS (11.7-14.9) 02/26/24 12:03 Pre-Assessment Diagnosis/Proposed Procedure Planned Operative Procedure(s): (L) Carotidstent, TCAR, Stage Electrician Helper, Anesthesia History Anesthesia History - management assistant: Anesthesia History - management assistant Hx Hospitalization Yes: STROKE 02/27/24 03/27/24 14:13 Any Problems With Anesthesia No 03/27/24 14:13 Cholinesterase deficiency No 03/27/24 14:13 You/Your Family Experience No 03/27/24 14:13 fever (hyperthermia) with Relationship Recent Exposure to Contagious No 04/15/24 09:52 Disease Does patient have nerve No 03/27/24 14:13 stimulator Patient instructed to have device shut off --Does patient have Pacemaker No 04/15/24 09:52 or ICD? When Was Last Pacemaker Check QUESTION #4 FULL TEXT: You/Your Family Experience fever (hyperthermia) with Anesthesia Last Oral Intake Last Oral intake: Last Oral Intake NPO since 20:00 04/15/24 09:52 Meds taken in AM with sips of water? Meds patient instructed to take am of surgery PONV PONV - management assistant: PONV - management assistant Female Yes 03/27/24 14:13 HX of Motion Sickness No 03/27/24 14:13 HX of N/V After Surgery No 03/27/24 14:13 Non-Smoker No 03/27/24 14:13 Duration of Surgery greater Yes 03/27/24 14:13 than 60 minutes Number of Risk Factors 2 03/27/24 14:13 PONV Score Moderate Risk 03/27/24 14:13 Height & Weight Height & Weight: Anesthesia: Height & Weight Height 5 ft 7 in 04/15/24 09:52 Weight: 82.1 kg 04/15/24 09:52 Body Mass Index (BMI) 28.3 04/15/24 09:52 Respiratory Assessment Respiratory Assessment - management assistant: Respiratory Tract Infection Hx - management assistant Hx Respiratory Tract Infection No 03/27/24 14:13 STOP Sleep Apnea STOP Sleep Apnea - management assistant: STOP Sleep Apnea - management assistant Hx Hypertension Yes: CONTROLLED WITH MED 03/27/24 14:13 Hx Sleep Apnea No 03/27/24 14:13 CPAP BIPAP Do you snore loudly (louder No 03/27/24 14:13 than talking or can be heard Do you often feel tired/ No 03/27/24 14:13 fatigued/ sleepy during daytime? Has anyone observed you stop No 03/27/24 14:13 breathing during sleep? STOP Results Negative 03/27/24 14:13 QUESTION #5 FULL TEXT : Do you snore loudly (louder than talking or can be heard through closed doors)? Tobacco Use History Tobacco Use History - management assistant: Tobacco Use History - management assistant Tobacco Use Cigarettes 02/27/24 09:35 Smoking Status Current every day smoker 03/27/24 14:13 Hx Tobacco Use Yes 03/27/24 14:13 Years Smoking Packs Smoked per Day 0.5 03/27/24 14:13 Smoking Cessation Date was within the last 15 years Hx Smoking Cessation Date Hx Smoking Cessation No 03/27/24 14:13 Counseling Any additional information?: Yes Smoking Status: Current every day smoker (Patient smoked today.) Hematologic Medial History Hematologic Hx - management assistant: Hematologic Medical Hx - can feeder Hx of Blood Transfusion No 03/27/24 14:13 Hx of Transfusion in last 3 No 03/27/24 14:13 Months Date of Last Transfusion (if within last 3 months) Ever experience any problems No 03/27/24 14:13 with transfusion(s)? Specify any problems Hx of Preganancy in last 3 N/A 03/27/24 14:13 Months Nurse Filling Out Transfusion NBUCHER 03/27/24 14:13 & Questions: Date: 03/27/24 03/27/24 14:13 Time: 14:15 03/27/24 14:13 Patient unable to answer at this time (ie. confused, unrespo /Reproduction History /Reproductive History - management assistant: /Reproductive Hx- management assistant Hx Now No 03/27/24 14:13 Gestational Age (in weeks): EDC: Hx Hx Para Hx Section SAB No 03/27/24 14:13 Active Medications Active Medications: Current Medications Generic Name Dose Route Start Last Admin Trade Name Freq PRN Reason Stop Dose Admin Sodium Chloride 1,000 mls @ 15 mls/hr 04/15/24 08:55 04/15/24 10:02 IV 04/20/24 22:14 15 mls/hr .Q48H ALLI Administration Protocol Sodium Chloride 500 mls @ 1 mls/hr 04/15/24 08:55 IV .Q48H PRN Saline Flush PFSH Medical History Wears dentures Depression Marijuana use High cholesterol Stroke/cerebrovascular accident Smoker History of Holter monitoring History of echocardiogram Arteriosclerosis of both carotid arteries Arthritis Aortic valve, bicuspid COPD (chronic obstructive pulmonary disease) Pulmonary hypertension Aortic stenosis Acute ischemic left MCA stroke Diabetes mellitus, type 2 History of alcohol abuse Cannabis use disorder HLD (hyperlipidemia) History of CVA (cerebrovascular accident) Hypertension Home Medications ?Medication ?Instructions ?Recorded ?Last Taken ?Type aspirin 81 mg chewable tablet 81 mg PO BREAKFAST heart health 90 10/18/23 04/15/24 07:00 Rx days #90 tabs albuterol sulfate 2.5 mg/3 mL 2.5 mg inhalation Q6H PRN 11/20/23 04/14/24 History (0.083 %) solution for nebulization shortness of breath or wheezing clonidine HCl 0.2 mg tablet 0.2 mg PO BID blood pressure 11/20/23 04/15/24 07:30 History metformin 500 mg tablet,extended 1,000 mg PO DAILY diabetes 11/20/23 04/14/24 History release 24 hr pregabalin 150 mg capsule 150 mg PO TID nerve pain 11/20/23 04/15/24 07:30 History amlodipine 5 mg tablet 10 mg PO DAILY blood pressure 03/20/24 04/15/24 07:30 History atorvastatin 80 mg tablet 80 mg PO QHS cholesterol 03/20/24 04/14/24 History bupropion HCl 100 mg tablet,12 hr 150 mg PO BID DEPRESSION 03/20/24 04/15/24 History sustained-release (Wellbutrin SR) clopidogrel 75 mg tablet (Plavix) 75 mg PO DAILY BLOOD THINNER #60 03/20/24 04/15/24 07:30 Rx tabs losartan 50 mg-hydrochlorothiazide 1 tab PO QDAY HTN 03/20/24 04/14/24 History 12.5 mg tablet Allergy/AdvReac Type Severity Reaction Status Date / Time No Known Allergies Allergy Verified 04/15/24 09:50 Family History Mother Breast cancer Diabetes Father Heart disease Hypertension CAD (coronary artery disease) CVA (cerebral vascular accident) Myocardial infarction Surgical History History of tonsillectomy and adenoidectomy Social History household members: none housing: apartment number of children: 3 current occupational status: retired Smoking Status: Current every day smoker (Patient smoked today.) tobacco type: cigarettes quit status: not considering quitting alcohol intake: former year quit: 2022 details: Quit 08/2022, prior 12-15 beers daily. substance use type: marijuana caffeine: Yes (On avg 3 cups coffee daily) Type: coffee Review of Systems (Anesthesia) ROS Narrative System reviewed and no additional complaints, except as documented.
[2024-04-15 10:49] LABS: Bedside Glucose 139 mg/dL (74-106)
--- NOTE | 2024-04-15 11:05 | PCM.HP.BLA ---
History and Physical Allergies No Known Allergies Allergy (Verified 03/20/24 13:44) Medications ?Medication ?Instructions ?Recorded ?Confirmed ?Type aspirin 81 mg chewable tablet 81 mg PO BREAKFAST heart health 90 10/18/23 03/20/24 Rx days #90 tabs albuterol sulfate 2.5 mg/3 mL 2.5 mg inhalation Q6H 11/20/23 03/20/24 History (0.083 %) solution for nebulization clonidine HCl 0.2 mg tablet 0.2 mg PO BID blood pressure 11/20/23 03/20/24 History metformin 500 mg tablet,extended 1,000 mg PO DAILY diabetes 11/20/23 03/20/24 History release 24 hr pregabalin 150 mg capsule 150 mg PO TID nerve pain 11/20/23 03/20/24 History amlodipine 5 mg tablet 10 mg PO DAILY blood pressure 03/20/24 History atorvastatin 80 mg tablet 80 mg PO QHS cholesterol 03/20/24 03/20/24 History bupropion HCl 100 mg tablet,12 hr 100 mg PO BID 03/20/24 03/20/24 History sustained-release (Wellbutrin SR) clopidogrel 75 mg tablet (Plavix) 75 mg PO DAILY #60 tabs 03/20/24 03/20/24 Rx losartan 50 mg-hydrochlorothiazide 1 tab PO QDAY 03/20/24 03/20/24 History 12.5 mg tablet Have you fallen in the past year?: No PFSH Medical History Arteriosclerosis of both carotid arteries Arthritis Aortic valve, bicuspid Acute ischemic left MCA stroke Hypertension COPD (chronic obstructive pulmonary disease) Pulmonary hypertension Aortic stenosis Diabetes mellitus, type 2 History of alcohol abuse Cannabis use disorder HLD (hyperlipidemia) History of CVA (cerebrovascular accident) Surgical History History of tonsillectomy and adenoidectomy Family History Mother Breast cancer DiabetesFather Heart disease Hypertension CAD (coronary artery disease) CVA (cerebral vascular accident) Myocardial infarction Social History household members: none housing: apartment number of children: 3 current occupational status: retired Smoking Status: Current every day smoker tobacco type: cigarettes quit status: not considering quitting alcohol intake: former year quit: 2022 details: Quit 08/2022, prior 12-15 beers daily. substance use type: marijuana HPI HPI HPI: KIM SUN, is a 68 M who presents to the office today for evaluation of left carotid artery stenosis. He initially presented with expressive aphasia in September and was found to have a left hemispheric infarct. His CTA of the neck at the time was interpreted as no significant carotid artery stenosis. He was placed briefly on Plavix with no further explanation for the cause of his event. He later presented in February with vision changes and imbalance and an episode of what appeared to be viral illness and dehydration. He was found to have bilateral infarcts within the cerebral as well as the cerebellar regions. He again had a CTA this time interpreted as greater than 70% stenosis of the left internal carotid artery. Given the bilateral and both anterior and posterior circulation nature of his infarcts he had an event monitor upon discharge which has been returned but no official report given to him. ROS General General: No weight change, appetite, fatigue, colon cancer, breast cancer or weakness HEENT HEENT: No difficulty swallowing, eye injury, eye surgery, swollen glands or hoarseness Endo Endocrine: Yes diabetes mellitus; No thyroid disease, thyroid cancer, Hair loss, heat intolerance or cold intolerance Skin Skin: No rash or changing moles Musc Musculoskeletal: No back problems, arthritis, rheumatoid arthritis, gout or joint pain Cardio Cardiovascular: Yes high blood pressure; No murmur, pacemaker, heart disease, atrial fibrillation, heart attack, heart stent, palpitations, shortness of breat with exertion or chest pain Psych Psychiatric: Yes depression; No anxiety or hearing voices Resp Respiratory: No shortness of breath, No sleep apnea, No cough, Yes COPD, No asthma, No emphysema and No wheezing Gastro Gastrointestinal: No abdominal pain, No nausea or vomiting, No diarrhea, No constipation, No blood in stool, No acid reflux, No hemorrhoids, No ulcers, No gallbladder problem and No black,tarry stools Jj Hematologic: No blood thinners, No blood disorders, No bleeding, No anemia and No blood clots Neuro Neurologic: No system reviewed and no additional complaints, except as documented, No as per HPI, Yes abnormal gait, No abnormal hearing, No abnormal movements, No abnormal speech, No behavioral changes, No burning sensations, No confusion, No convulsions, Yes disequilibrium, No dizziness, No localized weakness, No frequent falls, No headache(s), No lack of coordination, Yes loss of vision, No memory loss, Yes numbness, No other visual disturbances, No radicular pain, No restless legs, No sensory deficit, No syncope, Yes tingling, No tremor(s), No weakness and No other Exam Const General: cooperative, healthy appearing, comfortable, no acute distress and well developed Nutritional Appearance: well nourished Orientation: alert, awake and oriented x3 HENMT Head: normocephalic and atraumatic Ears: hearing grossly normal bilaterally Nose: external nose normal Eyes General: appearance normal, both eyes and all related structures EOM: EOM intact bilaterally Neck Neck: normal visual inspection, full ROM, no lymphadenopathy and trachea midline Thyroid: thyroid normal Lymphatic: no lymphadenopathy noted Resp Effort & Inspection: normal respiratory effort, able to speak in complete sentences, symmetric chest movement, no audible wheezes, not labored, no stridor and no use of accessory muscles Auscultation: clear to auscultation bilaterally Cardio Rate: regular rate Rhythm: regular rhythm Heart Sounds: murmur systolic at the base Bruits: carotid bruit bilaterally Pulses: brachial pulses present, radial pulses present, popliteal pulses not present, posterior tibial pulses not present and dorsalis pedis pulses not present Skin General: no rashes or lesions noted and no erythema Wounds: no wounds Neuro Cranial Nerves: CN's II-XI intact bilaterally and EOM intact bilaterally Speech: speech normal Gait: normal gait Motor: strength 5/5 throughout Sensory Exam: no sensory deficits noted Psych Appearance: grossly normal and well kempt Mental Status: mental status grossly normal Mood: congruent mood Speech and Movement: speech and movement normal Thought Content: normal Judgment: judgment good Coding Level of Care Code Off vis,est,level 4 Diagnoses Stenosis of left internal carotid artery with cerebral infarction I63.232 Assessment and Plan Assessment and Plan (1) Stenosis of left internal carotid artery with cerebral infarction: Status: Chronic Comment: CTA-images reviewed, 70% stenosis of the internal carotid artery approximately 2 cm distal to the bifurcation with no significant calcification in the lesion. He does have diffusely moderate to severely diseased common carotid artery though no significant stenosis Plan: -left TCAR
[2024-04-15 11:06] LABS: Hemoglobin 13.6 g/dL (13.0-16.5); Mean Corp Hgb Conc 34.9 g/dL (32-36); Mean Corpuscular Hgb 30.3 pg (27.0-32.0); Mean Corpuscular Volume 86.9 fL (80-94); Mean Platelet Vol. 8.2 fl (6.2-12.0); Platelet Count 484 K/mm3 (150-450); RBC Distribution Width CV 13.3 % (11.6-14.6); RBC Distribution Width SD 42.2 fl (35.1-43.9); Red Blood Count 4.49 M/mm3 (4.6-6.2); White Blood Count 12.6 K/mm3 (4.4-11.0)
[2024-04-15 11:12] LABS: Anion Gap 5 (5-15); BUN 10 mg/dL (7-18); Calcium,Total 10.3 mg/dL (8.5-10.1); Chloride 103 mmol/L (98-107); Creatinine, Serum 0.91 mg/dL (0.70-1.30); EST Glomerular Filtration Rate 88 mL/min (>60); Est Glom Filt Rate - Afr Amer 107 mL/min (>60); Estimated Creatinine Clearance 80.78 ml/min; Glucose 136 mg/dL (74-106); Sodium Level 133 mmol/L (136-145)
[2024-04-15 13:48] LABS: ACT Activated Clotting Time 296 sec (74-137)
[2024-04-15 13:48] LABS: ACT Activated Clotting Time 164 sec (74-137)
[2024-04-15 13:48] LABS: ACT Activated Clotting Time 256 sec (74-137)
--- NOTE | 2024-04-15 14:19 | PCM.POST.ANE ---
Anesthesia: Postop Eval I Current Vital Signs Temperature: 97.2 F Pulse Rate: 86 Blood Pressure: 161/74 (cuff pressure, a-line reading; 180/68 (112)) Respiratory Rate: 18 Pulse Ox: 99 Oxygen Delivery Method: Room Air Assessment Airway patent: Yes Spontaneous unlabored respirations: Yes Mental status: Awake and Calm nausea: No Vomiting: No Anesthesia Complication: No Fluid Hydration Crystalloid volume administer (ml): 1,500 Total IV fluid infused: 1,500 Progress Note Anesthesia document: Postop Eval 1 completed: Yes
[2024-04-15] MEDS: hydrALAZINE 20 MG/ML Vial 10 MG IV ×2 (14:34→15:12)
--- NOTE | 2024-04-15 14:34 | PCM.OPRPT ---
Operative Report (Standard) Operative Information Date of Procedure: 04/15/24 Pre-Operative Diagnosis: left carotid stenosis, symptomatic with prior infarct Post-Operative Diagnosis: same Surgery/Procedure Performed: left trans-carotid stent assistant shift supervisor: Yes Flat Finisher: Charlene Martin Tasks completed by assistant branch operations manager: Opening, Closing, Opening & closing, Implanting device, Hemostasis: Tie and Retracting Type of Anesthesia: General RN Documented Start/Stop Times: Operation Date: 04/15/24 11:00 Case Time Into Pre-Op 04/15/24 08:54 Out of Pre-Op 04/15/24 11:15 Into Recovery 04/15/24 14:20 Procedure Start Time: 12:00 Procedure Stop Time: 14:00 Select all DRAINS/GRAFTS/IMPLANTS that apply: Implanted device Implanted device details: En route 10 x 40 stent Estimated Blood Loss: 19 Specimen collected: No Description of surgery: HPI: Patient is a 68-year-old male with severe left carotid artery stenosis and prior left hemispheric infarct. Imaging revealed a lesion that was amenable to stenting with significantly diseased and calcified common carotid artery but no significant stenosis. It was felt that TCAR with access proximal to the diseased segment was his safest option so he presents now for carotid stenting. Description of procedure: Upon obtaining form consent and verification correct patient procedure site patient taken to the Manager Vehicle where he was placed under general anesthesia. He was then positioned prepped and draped in usual sterile fashion a time was performed. Transverse incision was made parallel to the left clavicle centered over the common carotid artery. Bovie electrocautery was dissect down through subcutaneous tissue to level the platysma which was then divided and self-retaining retractor put in position. Further dissection was carried down to the sternocleidomastoid splitting between the sternal and clavicular heads. Once this was dissected free self-retaining retractors moved deeper into the wound and the carotid sheath visualized. Sharp dissection then used to dissect free the jugular vein with sidebranches ligated with silk ties and divided. The vessel was then retracted laterally exposing the proximal common carotid artery and care was taken to identify and protect the vagus nerve. Sharp dissection was used dissect free the common carotid artery proximal to any palpable or visible plaque and a right angle used to place vessel loop. Our intended site of access was identified and found to be free of any significant atherosclerosis. A 5-0 Prolene pursestring was placed at the intended access site and the patient was then heparinized allowed to circulate for 3 minutes. Subsequent heparin dosing was based on ACT results. Next the right common femoral vein was accessed under ultrasound guidance with a micropuncture needle and wire. This was then exchanged for micropuncture sheath through which a J-wire was advanced and the micropuncture sheath exchanged for the 8 [place] venous return sheath. Once an adequate ACT was obtained a micropuncture needle and wire were used to access the common carotid artery and then exchanged for a micropuncture sheath. Through this a hand-injection carotid angiogram was performed revealing satisfactory positioning with no extravasation or dissection. This also revealed the lesion location and we planned to stop short of the plaque with our J-wire. The J-wire was then advanced through the micropuncture sheath which was then exchanged for the silk [address] flow reversal arterial sheath. This was then attached to the flow reversal tubing and ultimately to the femoral vein sheath. Satisfactory flow reversal was confirmed and hand-injection oblique views of the sheath confirm satisfactory sheath positioning. The common carotid artery was then occluded with Vesseloops and again flow reversal confirmed. Next utilizing the silk [address] 014 wire we navigated the distal common carotid artery plaque and then selectively cannulated the internal carotid artery. This wire was not able to traverse the lesion so it was then withdrawn and exchanged for a command 14 wire which was able to again selectively cannulate the internal carotid artery and traverse the area of stenosis. A 5 mm x [address] angioplasty balloon was then advanced in position centered on the lesion and inflated to nominal for 15 seconds and then deflated and withdrawn. An en route 10 x 40 stent was then advanced into position and deployed. After 2 minutes of flow reversal repeat carotid angiography revealed satisfactory stent positioning with no extravasation or dissection, no residual stenosis, and no plaque prolapse through the stent. Additional views were obtained which confirmed satisfactory stent expansion with no residual stenosis or plaque prolapse. The wire was then withdrawn and the common carotid vessel loop released with an additional minute of flow reversal performed. The flow reversal tubing was then detached and blood within the tubing returned via the venous sheath. The venous sheath was then withdrawn and manual pressure held for 5 minutes with satisfactory stasis noted. Carotid pursestring suture was then secured as the sheath was withdrawn and satisfactory stasis was noted. Vessels were interrogated with Doppler and found to be patent with low resistance signal. Heparin was reversed with protamine and the incision inspected for hemostasis. There is some oozing from the surrounding tissue so [place] topical hemostatic was applied and a 15 [place] [address] VICKY placed via separate stab incision. The incision was then closed with 3-0 Vicryl followed by 4 Monocryl and Dermabond for the skin. At the conclusion the case the patient was awake from anesthesia moving all extremities to command he was then taken to recovery room with anticipated [facility] intensive care unit for hemodynamic and neurologic monitoring Surgical Findings: see above Complications Complications: No
--- NOTE | 2024-04-15 16:10 | POSTOPAN2_ITS ---
Anesthesia Postop Eval I Sum Postop Eval Completion status Anesthesia document: Postop Eval 1 completed: Yes Anesthesia Postop Eval I Summary Anesthesia Postop Eval I Summary: Anesthesia Postop Eval I: Assessment Summary Airway patent Yes 04/15/24 14:22 FIELD CROP FARMER.[email or web address] Spontaneous unlabored Yes 04/15/24 14:22 FIELD CROP FARMER.RODNEY respirations Mental status Awake,Calm 04/15/24 14:22 FIELD CROP FARMER.SKOBY nausea No 04/15/24 14:22 FIELD CROP FARMER.SKOBY Vomiting No 04/15/24 14:22 FIELD CROP FARMER.IVNOEOBShannan Anesthesia Postop Eval I: Fluid Summary Crystalloid volume administer 1,500 04/15/24 14:22 FIELD CROP FARMER.SKOBY (ml) Colloids volume administered ( ml) Blood Product volume administered (ml) Total IV fluid infused 1,500 04/15/24 14:22 FIELD CROP FARMER.IVONEOBShannan Anesthesia Postop Eval I: Summary Notes Anesthesia Complication No 04/15/24 14:22 FIELD CROP FARMER.RODNEY Anesthesia Complication Comment: Post-operative progress note Anesthesia: Postop Eval II Evaluation Mental status: Awake and Calm Pain Level: 2 nausea: No Vomiting: No Complications Anesthesia Complication: No
--- NOTE | 2024-04-15 16:10 | PCM.POSTANE2 ---
Anesthesia Postop Eval I Sum Postop Eval Completion status Anesthesia document: Postop Eval 1 completed: Yes Anesthesia Postop Eval I Summary Anesthesia Postop Eval I Summary: Anesthesia Postop Eval I: Assessment Summary Airway patent Yes 04/15/24 14:22 ASSEMBLER SANDAL PARTS.SKOBY Spontaneous unlabored Yes 04/15/24 14:22 ASSEMBLER SANDAL PARTS.RODNEY respirations Mental status Awake,Calm 04/15/24 14:22 ASSEMBLER SANDAL PARTS.SKOBY nausea No 04/15/24 14:22 ASSEMBLER SANDAL PARTS.SKOBY Vomiting No 04/15/24 14:22 ASSEMBLER SANDAL PARTS.IVONEOBShannan Anesthesia Postop Eval I: Fluid Summary Crystalloid volume administer 1,500 04/15/24 14:22 ASSEMBLER SANDAL PARTS.SKOBY (ml) Colloids volume administered ( ml) Blood Product volume administered (ml) Total IV fluid infused 1,500 04/15/24 14:22 ASSEMBLER SANDAL PARTS.IVONEOBShannan Anesthesia Postop Eval I: Summary Notes Anesthesia Complication No 04/15/24 14:22 ASSEMBLER SANDAL PARTS.RODNEY Anesthesia Complication Comment: Post-operative progress note Anesthesia: Postop Eval II Evaluation Mental status: Awake and Calm Pain Level: 2 nausea: No Vomiting: No Complications Anesthesia Complication: No
[2024-04-15 16:24] LABS: Bedside Glucose 182 mg/dL (74-106)
[2024-04-15] MEDS: Cefazolin 1 GM/50 ML BAG IV (18:31)
[2024-04-15] MEDS: Atorvastatin Calcium 80 MG Tablet PO (20:36)
[2024-04-15] MEDS: Pregabalin 75 MG Capsule 150 MG PO (20:36)
[2024-04-15] MEDS: Acetaminophen 500 MG Tablet 1000 MG PO (20:36)
[2024-04-15] MEDS: cloNIDine HCl 0.2 MG Tablet PO (20:36)
[2024-04-15] MEDS: buPROPion (SR) 150 MG Tablet.SA PO (20:36)
[2024-04-15 20:56] LABS: Bedside Glucose 194 mg/dL (74-106)
[2024-04-16] VITALS (8 sets, daily range): BP systolic 148–175; BP diastolic 69–78; PULSE 67–78; RESP 16–20; TEMP 36.6–36.8; O2SAT 93–96
[2024-04-16] MEDS: Cefazolin 1 GM/50 ML BAG IV (03:32)
[2024-04-16] MEDS: Acetaminophen 500 MG Tablet 1000 MG PO (05:52)
[2024-04-16] MEDS: Pregabalin 75 MG Capsule 150 MG PO (05:52)
--- NOTE | 2024-04-16 07:26 | PCM.DC.SUM ---
Providers Date of Admission: 04/15/24 Primary Care Physician: GARRETT BradshawC Reason For Visit: Carotidstent, TCAR, Mechanical Cad Drafter, Anes, HAIR OR BEAUTY SALON ASSISTANT, OR Staff Medications at Discharge Home Medications aspirin 81 mg chewable tablet 81 mg PO BREAKFAST [facility] [employer] 90 days #90 tabs 10/18/23 albuterol sulfate 2.5 mg/3 mL (0.083 %) solution for nebulization 2.5 mg inhalation Q6H PRN shortness of breath or wheezing 11/20/23 clonidine HCl 0.2 mg tablet 0.2 mg PO BID blood pressure 11/20/23 metformin 500 mg tablet,extended release 24 hr 1,000 mg PO DAILY diabetes 11/20/23 pregabalin 150 mg capsule 150 mg PO TID nerve pain 11/20/23 amlodipine 5 mg tablet 10 mg PO DAILY blood pressure 03/20/24 atorvastatin 80 mg tablet 80 mg PO QHS cholesterol 03/20/24 bupropion HCl 100 mg tablet,12 hr sustained-release (Wellbutrin SR) 150 mg PO BID DEPRESSION 03/20/24 clopidogrel 75 mg tablet (Plavix) 75 mg PO DAILY BLOOD THINNER #60 tabs 03/20/24 losartan 50 mg-hydrochlorothiazide 12.5 mg tablet 1 tab PO QDAY HTN 03/20/24 oxycodone 5 mg tablet 5 mg PO Q8H PRN PRN Pain Score 4-10 3 days #9 tabs 04/16/24 Hospital Course Summary of Care Provided Hospital Course: Mr. Jeremy Chacon underwent L TCAR 04/15/2023. The procedure was without complication and he tolerated it well. Postoperatively, he was routinely admitted to the ICU for hemodynamic and neurologic monitoring. He has been neurologically stable, he had noted visual deficit which is residual from prior stroke. He has been hemodynamically stable, all of his home antihypertensives were restarted. He denied any new weakness, sensory changes, new/worse vision changes, hoarseness, difficulty chewing/swallowing, unilateral headache. He is adamant he will leave this morning, on my exam already partially dressed and denies any complaints/concerns other than strongly expressing his desire to leave. The VICKY drain was removed without issue. The incision site is satisfactory in appearance. He is discharged to home in medically stable condition with scheduled outpatient follow-up. Weight / BMI Weight Weight: 180 lb 15.992 oz Body Mass Index (BMI) 28.4 ABG / Lab / Microbiology Data 04/15/24 10:55 04/15/24 10:20 Laboratory: Laboratory Results - last 24 hr 04/15/24 09:59: POC Glucose 139 H 04/15/24 10:20: WBC Cancelled, Corrected WBC Cancelled, RBC Cancelled, Hgb Cancelled, Hct Cancelled, MCV Cancelled, MCH Cancelled, MCHC Cancelled, RDW Std Deviation Cancelled, RDW Coeff of Katherine Cancelled, Plt Count Cancelled, MPV Cancelled, Diff Path Review Cancelled, Sodium 133 L, Potassium 4.0, Chloride 103, Carbon Dioxide 25.0, Anion Gap 5, BUN 10, Creatinine 0.91, Estim Creat Clear Calc 80.78, Est GFR (MDRD) Af Amer 107, Est GFR (MDRD) Non-Af 88, BUN/Creatinine Ratio 11.0, Glucose 136 H, Calcium 10.3 H, Blood Type O POSITIVE, Antibody Screen NEGATIVE 04/15/24 10:55: WBC 12.6 H, RBC 4.49 L, Hgb 13.6, Hct 39.0 L, MCV 86.9, MCH 30.3, MCHC 34.9, RDW Std Deviation 42.2, RDW Coeff of Katherine 13.3, Plt Count 484 H, MPV 8.2 04/15/24 12:13: Activated Clotting Time 164 H 04/15/24 12:35: Activated Clotting Time 296 H 04/15/24 13:12: Activated Clotting Time 256 H 04/15/24 16:06: POC Glucose 182 H 04/15/24 20:33: POC Glucose 194 H D/C Instructions Discharge Diet: No restrictions May shower in (days): 1 Weight Bearing Status: Weight bearing as tolerated Lifting Restricted to (Lbs): 20 Lifting Restrictions: Do not lift greater than 20 pounds for 3 weeks Call your doctor if your incision/area has: Continuous Slow Oozing, Increased Pain/ Swelling and Foul Smelling Discharge Call your doctor if you observe: Fever of 101 or Higher and Uncontrolled pain DC O2, CPAP, BIPAP Needs Home O2 Discharge instructions: No Additional Instructions: You have a small bandage over the site from which the surgical drain was removed and a small bandage over the groin puncture site. You may remove both bandages tomorrow. As long as there is no residual drainage, you may leave them open to air. If you do notice some continued drainage, you may re-cover with a Band-Aid. Your neck incision site is covered with skin glue which will continue to protect it. The skin glue will peel/flake off on its own over the next few weeks. Please do not pick at it. You may shower tomorrow. It is okay for soap and water to rinse over the incision site, pat to dry. Do not submerge the neck incision site or groin puncture site in water such as to take a bath or go swimming etc. for 3 weeks. Do not lift greater than 20 pounds for 3 weeks. Otherwise, please continue with activity as tolerated. Do not drive until you can turn your head well enough to safely check your blind spots. I have prescribed a prescription pain medication oxycodone 5 mg tablets to be taken by mouth every 8 hours as needed for pain. Do not take in combination with any other prescription pain medications. You may take this in addition to Tylenol or ibuprofen as allowed. You are scheduled for follow-up in the office 04/29/23. If you need to change this appointment or have any other questions/concerns then please contact the office at [phone]. Please Follow Up With: Soha Stein PA When: 04/29/23 Meaningful Use Info Meaningful Use Meaningful Use Diagnoses (Choose all that apply): None applicable Ischemic Stroke Statin Dosing Therapy Reference: STATIN DOSE THERAPY REFERENCE: * Patients > 75 years receive moderate or high dose statin therapy. * Patients 75 years or YOUNGER should receive HIGH intensity statin dose unless contraindicated. You will be required to document reason for non-treatment if statin daily dose does not meet guidelines. HIGH DOSE STATIN THERAPY DAILY Atorvastatin > than or = to 40 mg Rosuvastatin > than or = to 20 mg Amlodipine + Atorvastatin > than or = to 2.5/40 mg Ezetimibe + Simvastatin 10/80 mg Simvastatin 80mg Discharge Plan Admission Admit Date/Time: 04/15/24 13:51 Attending Provider: Larry Crum Primary Care Provider: Cecilia العلي NP Discharge Orders/Prescriptions Prescriptions: New oxycodone 5 mg Tablet 5 mg PO Q8H PRN PRN (Reason: Pain Score 4-10) 3 Days Qty: 9 0RF Continued albuterol sulfate 2.5 mg /3 mL (0.083 %) solution for nebulization 2.5 mg inhalation Q6H PRN (Reason: shortness of breath or wheezing) pregabalin 150 mg capsule 150 mg PO TID clonidine HCl 0.2 mg tablet 0.2 mg PO BID atorvastatin 80 mg tablet 80 mg PO QHS amlodipine 5 mg tablet 10 mg PO DAILY losartan-hydrochlorothiazide 50-12.5 mg tablet 1 tab PO QDAY bupropion HCl [Wellbutrin SR] 100 mg tablet sustained-release 12 hr 150 mg PO BID clopidogrel [Plavix] 75 mg tablet 75 mg PO DAILY Qty: 60 0RF aspirin 81 mg Tablet,Chewable 81 mg PO BREAKFAST 90 Days Qty: 90 0RF Held metformin 500 mg tablet extended release 24 hr 1,000 mg PO DAILY Hold Instructions: Resume on 04/17/24. Referrals / Follow Up: Cecilia العلي NP, STEEL CRANE OPERATOR-C [Primary Care Provider] - Disposition Disposition (needs filled in before D/C Order can be placed): Home, Self Care
--- NOTE | 2024-04-16 09:24 | CASEMGMT ---
RN CM initial assessment not competed due to the pt leaving the floor this morning. Per the pt RN during ICU rounds, the pt was not waiting around for anyone. Per chart review, no needs identified.
== END 2024-04-16 08:45 | disposition home or self-care (01) | DRG 36 ==
LOC: ACINP 14:44 → ICU 15:30
PROVIDERS: Admitting Provider Surgery Trauma Surgery; PCP Nurse Practitioner Family; Referring Provider Surgery Trauma Surgery; Visit Provider Surgery Trauma Surgery
PROC: 037L3DZ Dilation of Left Internal Carotid Artery with Intraluminal Device, Percutaneous Approach (ICD-10-PCS; CPT 37236; principal; 2024-04-15 10:30)
DX: I63.232 Cerebral infarction due to unspecified occlusion or stenosis of left carotid arteries (principal); E11.9 Type 2 diabetes mellitus without complications; J44.9 Chronic obstructive pulmonary disease, unspecified; I10 Essential (primary) hypertension; E78.5 Hyperlipidemia, unspecified; F17.210 Nicotine dependence, cigarettes, uncomplicated; F12.90 Cannabis use, unspecified, uncomplicated; I97.3 Postprocedural hypertension; Z79.02 Long term (current) use of antithrombotics/antiplatelets; Z79.84 Long term (current) use of oral hypoglycemic drugs
CPT/HCPCS: 37215; 76937; 80048; 82962; 85027; 85347; 86850; 86900; 86901; 99252; A4648; C1725; C1769; C1876; C1884; C1894; Q9967; G0463; J2405

== ENCOUNTER → 2024-06-11 | Outpatient (CLI) | payer MEDICARE, MEDICAID, SELFPAY ==
--- NOTE | 2024-06-11 09:54 | CDU_ITS ---
Reason For Study Reason For Study: S/P Lt TCAR Rt. Velocities/BP Lt. Velocities/BP Prox CCA 70.2/10.9 cm/sec. Prox CCA 77.1/15.7 cm/sec. Mid CCA 59.2/7.6 cm/sec. Mid CCA 85.1/21.2 cm/sec. Dist CCA 83.4/16.4 cm/sec. Pre Stent - 79.6/17.5 cm/sec. Prox ICA 105.8/16.3 cm/sec. Dist CCA 103.4/21.2 cm/sec. Mid ICA 90.7/14.6 cm/sec. Prox ICA 88.8/13.9 cm/sec. Dist ICA 73.0/10.9 cm/sec. Mid ICA 73.3/12.2 cm/sec. Rt. ICA/CCA = 1.8. Dist ICA 71.9/17.9 cm/sec. Prox ECA 106.3/11.8 cm/sec. Post Stent - 107.0/19.4 cm/sec. Rt. Vert. 75.7/14.2 cm/sec. Lt. ICA/CCA = 1.3. Prox ECA 226.0/22.3 cm/sec. Lt. Vert. 100.2/15.5 cm/sec. Right Extracranial There is heterogeneous, irregular atherosclerotic plaque noted in the right common carotid artery. There is heterogeneous, irregular atherosclerotic plaque noted in the right internal carotid artery. The atherosclerotic plaque causes acoustic shadowing. There is heterogeneous, irregular atherosclerotic plaque noted in the right external carotid artery. The atherosclerotic plaque causes acoustic shadowing. Antegrade flow is noted in the right vertebral artery. Left Extracranial There is heterogeneous, irregular atherosclerotic plaque noted in the left common carotid artery. There is heterogeneous, irregular atherosclerotic plaque noted in the left internal carotid artery. The atherosclerotic plaque causes acoustic shadowing. Stent noted. There is heterogeneous, irregular atherosclerotic plaque noted in the left external carotid artery. The atherosclerotic plaque causes acoustic shadowing. Antegrade flow is noted in the left vertebral artery. Procedure Carotid Duplex [id number]. This is a Carotid Duplex examination using B-mode, color flow and specral Doppler. The exam was diagnostic. Exam performed in department. VL/Carotid Duplex Ultrasound Interpretation Summary Mild (<50%) stenosis right extracranial internal carotid. Mild (<50%) stenosis left extracranial internal carotid. Patent and antegrade vertebrals bilaterally. Ordering Physician: Soha Stein Referring Physician: Cecilia العلي Performed By: Bernardino Carey RVT
== END | disposition home or self-care (01) ==
LOC: CVS 09:53
PROVIDERS: PCP Nurse Practitioner Family; Referring Provider Physician Assistant; Visit Provider Physician Assistant
DX: I63.232 Cerebral infarction due to unspecified occlusion or stenosis of left carotid arteries (principal)
CPT/HCPCS: 93880

== ENCOUNTER → 2024-10-17 | Outpatient (CLI) | payer MEDICARE, MEDICAID, SELFPAY ==
--- NOTE | 2024-10-17 09:49 | CDU_ITS ---
Reason For Study Reason For Study: S/P LT ICA TCAR Rt. Velocities/BP Lt. Velocities/BP Prox CCA 95.2/9.5 cm/sec. Prox CCA 74.6/15.3 cm/sec. Mid CCA 67.0/11.2 cm/sec. Mid CCA 107.3/15.1 cm/sec. Dist CCA 64.1/10.3 cm/sec. Dist CCA 127.1/19.5 cm/sec. Prox ICA 127.1/28.3 cm/sec. Stent noted at prox ICA. Mid ICA 68.1/13.3 cm/sec. Prox Stent - 144.7/23.9 Dist ICA 71.5/13.0 cm/sec. Mid Stent - 113.9/21.7 Rt. ICA/CCA = 1.9. Dist Stent - 76.9/14.4. Prox ECA 157.8/6.4 cm/sec. Mid ICA 74.9/18.0 cm/sec. Rt. Vert. 83.1/9.5 cm/sec. Dist ICA 133.7/23.9 cm/sec. Lt. ICA/CCA = 1.3. Prox ECA 345.7/12.2 cm/sec. Lt. Vert. 45.3/10.4 cm/sec. Right Extracranial There is heterogeneous, irregular atherosclerotic plaque noted in the right common carotid artery. There is heterogeneous, irregular atherosclerotic plaque noted in the right internal carotid artery. The atherosclerotic plaque causes acoustic shadowing. The distal right internal carotid artery is not well visualized. There is heterogeneous, irregular atherosclerotic plaque noted in the right external carotid artery. The atherosclerotic plaque causes acoustic shadowing. Antegrade flow is noted in the right vertebral artery. Left Extracranial There is heterogeneous, irregular atherosclerotic plaque noted in the left common carotid artery. There is heterogeneous, irregular atherosclerotic plaque noted in the left internal carotid artery. The atherosclerotic plaque causes acoustic shadowing. Stent notedat Prox ICA. There is heterogeneous, irregular atherosclerotic plaque noted in the left external carotid artery. Antegrade flow is noted in the left vertebral artery. VL/Carotid Duplex Ultrasound Interpretation Summary Moderate (50-69%) stenosis right extracranial internal carotid. Moderate (<70%) stenosis left extracranial internal carotid. Patent and antegrade vertebrals bilaterally. Ordering Physician: Soha Stein Referring Physician: Cecilia العلي Performed By: Bernardino Carey RVT
== END | disposition home or self-care (01) ==
LOC: CVS 09:48
PROVIDERS: PCP Nurse Practitioner Family; Referring Provider Physician Assistant; Visit Provider Physician Assistant
DX: Z48.812 Encounter for surgical aftercare following surgery on the circulatory system (principal); I63.232 Cerebral infarction due to unspecified occlusion or stenosis of left carotid arteries; Z95.828 Presence of other vascular implants and grafts
CPT/HCPCS: 93880

== ENCOUNTER → 2025-02-16 | Outpatient (CLI) | payer MEDICARE, MEDICAID, SELFPAY ==
--- NOTE | 2025-02-16 09:04 | CDU_ITS ---
Reason For Study Reason For Study: S/P Lt TCAR Rt. Velocities/BP Lt. Velocities/BP Prox CCA 85.0/12.4 cm/sec. Prox CCA 74.2/13.9 cm/sec. Mid CCA 78.4/11.3 cm/sec. Mid CCA 105.2/23.0 cm/sec. Dist CCA 79.5/9.1 cm/sec. Dist CCA 145.4/28.5 cm/sec. Prox ICA 141.2/27.9 cm/sec. TCAR Noted Lt ICA Mid ICA 113.8/20.6 cm/sec. Pre Stent - 143.6/26.7 cm/s Dist ICA 86.9/13.3 cm/sec. Prox Stent - 139.9/15.7 cm/s Rt. ICA/CCA = 1.5. Mid Stent - 114.3/15.7 cm/s Prox ECA 275.8/12.9 cm/sec. Dist Stent - 79.5/12.8 cm/s Rt. Vert. 68.5/9.1 cm/sec. Post Stent - 79.5/11.3 cm/s. Mid ICA 73.6/12.8 cm/sec. Dist ICA 86.4/20.6 cm/sec. Lt. ICA/CCA = 1.4. Prox ECA 349.2/33.9 cm/sec. Lt. Vert. 45.0/9.2 cm/sec. Right Extracranial There is heterogeneous, irregular atherosclerotic plaque noted in the right common carotid artery. There is heterogeneous, irregular atherosclerotic plaque noted in the right internal carotid artery. There is heterogeneous, irregular atherosclerotic plaque noted in the right external carotid artery. Antegrade flow is noted in the right vertebral artery. Left Extracranial There is heterogeneous, irregular atherosclerotic plaque noted in the left common carotid artery. There is heterogeneous, irregular atherosclerotic plaque noted in the left internal carotid artery. S/P Lt ICA TCAR. There is heterogeneous, irregular atherosclerotic plaque noted in the left external carotid artery. Antegrade flow is noted in the left vertebral artery. Procedure Carotid Duplex [id number]. This is a Carotid Duplex examination using B-mode, color flow and specral Doppler. The exam was diagnostic. Exam performed in department. VL/Carotid Duplex Ultrasound Interpretation Summary Moderate (50-69%) stenosis right extracranial internal carotid. Moderate (<70%) stenosis left extracranial internal carotid. Patent and antegrade vertebrals bilaterally. Ordering Physician: Soha Stein Referring Physician: Cecilia العلي Performed By: Bernardino Carey RVT
== END | disposition home or self-care (01) ==
LOC: CVS 09:04
PROVIDERS: PCP Nurse Practitioner Family; Referring Provider Physician Assistant; Visit Provider Physician Assistant
DX: Z48.812 Encounter for surgical aftercare following surgery on the circulatory system (principal); I63.232 Cerebral infarction due to unspecified occlusion or stenosis of left carotid arteries; Z95.828 Presence of other vascular implants and grafts
CPT/HCPCS: 93880